=== PATIENT | male | born 1945 | race Caucasian/White ===

== ENCOUNTER 2017-02-16 21:50 | Emergency (ER) | payer MEDICARE ==
[~2017-02-16] VITALS: Ht 180.3 cm; Wt 146.0 kg
[~2017-02-16 21:50] MED LIST: ALLO100 PO; AMLO5TAB22 PO; CYCL1PAK PO; DOCU1CAP39 PO; FENO54TA PO; FURO1TAB93 PO; GABA800T PO; IRBE150T4 PO; LEVO.075 PO; LEVO50TA4 PO; METF850T PO; MORP30SU PO; RANI150T PO; STAR120T PO; TEMA15 PO; VITA10002 PO; VITATAB25 PO; WALKER ROLLING; WHEELCHAIR RENTAL RA
[2017-02-16 22:05] VITALS: BP 121/70; PULSE 89; RESP 19; TEMP 98; O2SAT 95
--- NOTE | 2017-02-16 23:04 | PD ---
HPI Chief Complaint: Injury Time Seen by Provider: 23:00 Travel History International Travel<30 days: No Contact w/Intl Traveler<30days: No Traveled to known affect area: No History of Present Illness HPI This 71-year-old male had a fall 2 days ago. He's been having pain in his right knee. It hurts him a lot when he bears weight he has chronic weakness in his left leg and back problems. He has had 3 back surgeries. PFSH Past Medical History Arthritis: No Asthma: No Autoimmune Disease: No Anxiety: No Depression: No Heart Rhythm Problems: No Cancer: No Cardiovascular Problems: No High Cholesterol: Yes Chemotherapy: No Chest Pain: No Congestive Heart Failure: No COPD: No Cerebrovascular Accident: No Diabetes: Yes (ON [place]) Endocrine: Yes Gastrointestinal Disorders: Yes (AICD REFLUX, OCCAS & CONSTIPATION ) GERD: Yes Genitourinary: No Hepatitis: No Hiatal Hernia: No Hypertension: Yes Immune Disorder: No Kidney Stones: No Musculoskeletal: Yes (LOSS OF STRENGTH OF LEFT LEG) Neurologic: Yes (TINGLING LEFT LEG) Psychiatric: No Reproductive: No Respiratory: Yes (SOB ON EXERTION) Migraines: No Radiation Therapy: No Renal Failure: No Seizures: No Sickle Cell Disease: No Sleep Apnea: No Thyroid Disease: Yes Ulcer: No Past Surgical History Abdominal Surgery: Yes (APPENDECTOMY) AICD: No Appendectomy: Yes Arteriovenous Shunt: No Body Medical Devices: PT DENIES ANY IMPLANTS Cardiac Surgery: No Ear Surgery: No Endocrine Surgery: No Eye Surgery: No Genitourinary Surgery: No Gynecologic Surgery: No Insulin Pump: No Joint Replacement: No Neurologic Surgery: Yes (CERVICAL SPINE STIMULATOR; PLATE THORACIC SPINE 2006) Oral Surgery: Yes (TONSILLECTOMY ) Pacemaker: No Thoracic Surgery: Yes (LUNG REPAIR LEFT) Tonsillectomy: Yes Other Surgery: Yes Social History Alcohol Use: No Tobacco Use: No Substance Use: No Allergies-Medications (Allergen,Severity, Reaction): Coded Allergies: Coconut (Verified Allergy, Severe, Hives, 02/16/17) Reported Meds & Prescriptions Reported Meds & Active Scripts Active Reported Pioglitazone (Pioglitazone HCl) 30 Mg Tab 30 Mg PO DAILY Magnesium 400 Mg Tab 400 Mg PO DAILY Lovastatin 20 Mg Tab 20 Mg PO DAILY Review of Systems General / Constitutional: No: Fever, Chills Eyes: No: Diploplia HENT: No: Headaches Cardiovascular: No: Chest Pain or Discomfort Respiratory: No: Cough, Shortness of Breath Gastrointestinal: No: Vomiting, Diarrhea Genitourinary: No: Urgency Musculoskeletal: Positive: Myalgias, Pain Skin: No Rash, No Itching Neurologic: No: Weakness Physical Exam Narrative GENERAL: An alert male SKIN: Focused skin assessment warm/dry. HEAD: Atraumatic. Normocephalic. EYES: Pupils equal and round. No scleral icterus. No injection or drainage. ENT: No nasal bleeding or discharge. Mucous membranes pink and moist.. MUSCULOSKELETAL: No obvious deformities. No clubbing. No cyanosis. No edema. There is some fairly diffuse swelling of the right knee. There is no warmth. There is no gross instability. NEUROLOGICAL: Awake and alert. No obvious cranial nerve deficits. Motor grossly within normal limits. Normal speech. PSYCHIATRIC: Appropriate mood and affect; insight and judgment normal. Data Data Last Documented VS Vital Signs Date Time Temp Pulse Resp B/P Pulse Ox O2 Delivery O2 Flow Rate FiO2 02/16/17 23:05 86 18 143/68 95 Room Air 02/16/17 22:05 98.0 Orders Knee, Complete (4vws) (02/16/17 23:00) Splint Or Brace Apply/Monitor (02/16/17 23:53) MDM Medical Decision Making Medical Screen Exam Complete: Yes Emergency Medical Condition: Yes Medical Record Reviewed: Yes Differential Diagnosis Differential includes fracture, contusion, internal derangement Narrative Course X-ray shows severe changes of osteoarthritis. There is no acute fracture seen. We tried to put the patient in a knee immobilizer but he is too large for the fever and we have. We did apply an John bandage to the knee Diagnosis Primary Impression: Contusion of knee Qualified Code: S80.01XA - Contusion of right knee, initial encounter Additional Instructions: Use John bandage when ambulatory. Follow-up with orthopedist if pain persists Disposition: DISCHARGE HOME Condition: Stable Andrew Mistry MD Feb 16, 2017 23:04
[2017-02-16 23:05] VITALS: BP 143/68; PULSE 86; RESP 18; O2SAT 95
[2017-02-16] MEDS ORDERED: MAGN1TAB14 PO (23:37)
[2017-02-16] MEDS ORDERED: MORP15TA73 (23:37)
[2017-02-16] MEDS ORDERED: PIOG30TA4 PO (23:37)
[2017-02-16] MEDS ORDERED: LOVA20TA PO (23:37)
--- NOTE | 2017-02-16 23:37 | RADHPO ---
EXAM DATE/TIME: 02/16/2017 23:07 [facility] COMPARISON: KNEE RIGHT COMPLETE (4VWS), June 05, 2015, 9:49. INDICATIONS : Right knee pain after fall. MEDICAL HISTORY : None. SURGICAL HISTORY : None. ENCOUNTER: Initial ACUITY: 2 days PAIN SCORE: 6/10 LOCATION: Right knee FINDINGS: Multiple views of the knee show joint space narrowing with periarticular sclerotic change and osteoph yte production. No fracture or dislocation. A tiny joint effusion. Soft tissues are unremarkable. CONCLUSION: 1. Advanced tricompartmental osteoarthritis with tiny joint effusion. William Johnson Jr., MD on February 16, 2017 at 23:34 Board Certified Radiologist. This report was verified electronically.
[2017-02-17 00:59] VITALS: BP 125/74
[2017-02-23] MEDS ORDERED: DULO1CAP2 PO (14:55)
[2017-02-23] MEDS ORDERED: GABA300C5 (14:55)
[2017-02-23] MEDS ORDERED: TIZA4TAB (14:55)
[2017-02-23] MEDS ORDERED: RANI150T PO (14:55)
[2017-02-23] MEDS ORDERED: MORP1TAB24 PO (14:55)
[2017-02-23] MEDS ORDERED: ALLO100T PO (14:55)
[2017-02-23] MEDS ORDERED: NATE120T PO (14:55)
[2017-02-23] MEDS ORDERED: LEVO100T5 PO (14:55)
[2017-02-23] MEDS ORDERED: ATOR10TA15 (14:55)
[2017-02-23] MEDS ORDERED: CYCL1TAB29 PO (14:55)
[2017-02-23] MEDS ORDERED: METF850T PO (14:55)
[2017-02-23] MEDS ORDERED: FURO40TA PO (14:55)
[2017-02-23] MEDS ORDERED: AMLO5TAB2 PO (14:55)
[2017-02-23] MEDS ORDERED: GABA600T PO (14:55)
[2017-02-23] MEDS ORDERED: [UNRECOGNIZED DRUG - CODE] (14:55)
[2017-04-07] MEDS ORDERED: METF850T PO (08:36)
[2017-04-07] MEDS ORDERED: HYDR-3583 PO (08:36)
== END 2017-02-17 01:01 | disposition home or self-care (01) ==
LOC: PHED 21:50
DX: S80.01XA Contusion of right knee, initial encounter (principal); E07.9 Disorder of thyroid, unspecified; I10 Essential (primary) hypertension; K21.9 Gastro-esophageal reflux disease without esophagitis; E11.9 Type 2 diabetes mellitus without complications; W19.XXXA Unspecified fall, initial encounter
CPT/HCPCS: 73564; 99283; L1830

== ENCOUNTER → 2017-04-07 | Outpatient (CLI) | payer MEDICARE ==
[~2017-04-07] MED LIST changes: -ALLO100 PO; +ALLO100T PO; +AMLO5TAB2 PO; -AMLO5TAB22 PO; +ATOR10TA15; -CYCL1PAK PO; +CYCL1TAB29 PO; -DOCU1CAP39 PO; +DULO1CAP2 PO; -FENO54TA PO; -FURO1TAB93 PO; +FURO40TA PO; +GABA300C5; +GABA600T PO; -GABA800T PO; +HYDR-3583 PO; -IRBE150T4 PO; -LEVO.075 PO; +LEVO100T5 PO; -LEVO50TA4 PO; +LOVA20TA PO; +MAGN1TAB14 PO; +MORP1TAB24 PO; -MORP30SU PO; +NATE120T PO; +PIOG30TA4 PO; -STAR120T PO; -TEMA15 PO; +TIZA4TAB; -VITA10002 PO; -VITATAB25 PO; -WALKER ROLLING; -WHEELCHAIR RENTAL RA; +[UNRECOGNIZED DRUG - CODE]
[2017-04-07 09:58] LABS: AUTOMATED NEUTROPHIL # 6.3 TH/MM3 (1.8-7.7); BASOPHIL # 0.1 TH/MM3 (0-0.2); BASOPHIL % 0.9 % (0.0-2.0); EOSINOPHIL # 0.6 TH/MM3 (0-0.4); EOSINOPHIL % 5.3 % (0.0-4.0); HEMATOCRIT 35.2 % (39.0-51.0); HEMO FLAGS DIFF FINAL; LYMPH % 29.3 % (9.0-44.0); LYMPHOCYTE # 3.3 TH/MM3 (1.0-4.8); MEAN CORPUSCULAR HEMOGLOBIN 26.8 PG (27.0-34.0); MEAN CORPUSCULAR HGB CONC 31.9 % (32.0-36.0); MONO % 8.2 % (0.0-8.0); NEUT % 56.3 % (16.0-70.0); PLATELET COUNT 299 TH/MM3 (150-450); RED CELL DISTRIBUTION WIDTH 15.8 % (11.6-17.2); WHITE BLOOD COUNT 11.1 TH/MM3 (4.0-11.0)
--- NOTE | 2017-04-07 14:47 | EKG ---
Date Performed: 04/07/2017 Time Performed: 08:15:57 PTAGE: 71 years EKG: Sinus rhythm WITH FIRST DEGREE AV BLOCK LOW QRS VOLTAGE IN PRECORDIAL LEADS INCOMPLETE RBBB MINIMAL VOLTAGE CRITE NEFTALY FOR LVH, CONSIDER NORMAL VARIANT INFERIOR MYOCARDIAL INFARCTION, PROBABLY OLD WITH POSTERIOR EXTE NSION ABNORMAL ECG PREVIOUS TRACING : 06/11/2016 10.19 Compared to prior tracing no significant change DOCTOR: Deonte Weaver Interpretating Date/Time 04/07/2017 14:45:14
== END ==
LOC: CPRE 07:56
PROVIDERS: ATTEND Orthopaedic Surgery
DX: Z01.810 Encounter for preprocedural cardiovascular examination (principal); M10.011 Idiopathic gout, right shoulder; M75.41 Impingement syndrome of right shoulder; Z01.812 Encounter for preprocedural laboratory examination
CPT/HCPCS: 36415; 85025; 93005

== ENCOUNTER → 2017-05-27 | Outpatient (CLI) | payer MEDICARE ==
[~2017-05-27] MED LIST changes: +CHOL5000 PO; -GABA300C5; -TIZA4TAB; +VITA500T83 PO; -[UNRECOGNIZED DRUG - CODE]
[2017-05-27 09:38] LABS: HEMATOCRIT 32.8 % (39.0-51.0); MEAN CELL VOLUME 84.3 FL (80.0-100.0); MEAN CORPUSCULAR HEMOGLOBIN 28.1 PG (27.0-34.0); MEAN CORPUSCULAR HGB CONC 33.3 % (32.0-36.0); PLATELET COUNT 308 TH/MM3 (150-450); RED BLOOD COUNT 3.89 MIL/MM3 (4.50-5.90); REVIEW FLAG FINAL
== END ==
LOC: CPRE 09:03
PROVIDERS: ATTEND Orthopaedic Surgery
DX: Z01.812 Encounter for preprocedural laboratory examination (principal); I10 Essential (primary) hypertension; M19.011 Primary osteoarthritis, right shoulder; M75.41 Impingement syndrome of right shoulder; E66.01 Morbid (severe) obesity due to excess calories
CPT/HCPCS: 36415; 85027

== ENCOUNTER → 2017-06-03 | Day surgery (SDC) | payer MEDICARE ==
[~2017-06-03] VITALS: Ht 180.3 cm; Wt 147.5 kg
[~2017-06-03] MED LIST changes: +*RESP: ALBUTEROL 2.5 MG/3 ML NEB (PRN) PERIprocedural Use ONLY NEB ONE; -ATOR10TA15; +BUPIVACAINE HCL PF 0.5% 30 ML VIAL NERV BLOCK ONE; +CHLORHEXIDINE GLUCONATE 2 % 1 PACK (2 CLOTHS) TOPICAL PRN; +DEXAMETHASONE SOD PHOS 4 MG/ML VIAL ONE; +DO NOT ADM ANY ANTICOAGULANT DRUGS PRN; +EPINEPHrine HCL (1:1000) 30 MG/30 ML VIAL ONE; +FAMOTIDINE 20 MG/2 ML VIAL ONE; +INSULIN HUMAN REGULAR 1,000 UNITS/10 ML VIAL SQ PRN; +KETOROLAC TROMETHAMINE 30 MG/ML (IVP) VIAL IVP ONE; +LACTATED RINGER'S 1000 ML IV PRN; +METOCLOPRAMIDE HCL 10 MG/2 ML VIAL ONE; +METOPROLOL TARTRATE 25 MG TAB PO PRN; +MIDAZOLAM HCL 2 MG/2 ML VIAL ONE; +MORPHINE SULFATE 4 MG/ML INJ IV PUSH PRN; +NEOSTIGMINE 3 MG/3 ML SYR IV ONE; +ONDANSETRON HCL 4 MG/2 ML VIAL IV PRN; +ONDANSETRON HCL 4 MG/2 ML VIAL ONE; +POVIDONE IODINE 5% (ANTISEPSIS KIT) 4 APPLICATIONS EACH NARE PRN; +PROPOFOL 200 MG/20 ML AMP IV ONE; +SODIUM CHLORID 0.9% 500 ML IV PRN; +SODIUM CHLORIDE 0.9% FLUSH 10 ML FLUSH IV FLUSH PRN; +SODIUM CHLORIDE 0.9% FLUSH 10 ML FLUSH IV FLUSH SCH; +SUGAMMADEX SODIUM 200 MG/2 ML VIAL IV PUSH ONE; +ceFAZolin 1,000 MG/NS 100 ML IV SCH; +ceFAZolin INJ 1,000 MG VIAL IV ONE; +ceFAZolin INJ 1,000 MG VIAL ONE; +ePHEDrine/NS 25 MG/5 ML SYR IV ONE; +fentaNYL CITRATE 250 MCG/5 ML AMP ONE; +oxyCODONE/ACETAMINOPHEN 5 MG/325 MG TAB PO PRN
[2017-06-03 06:39] VITALS: BP 144/83; PULSE 82; RESP 20; TEMP 98.4; O2SAT 97
[2017-06-03 12:20] VITALS: BP 101/57; PULSE 68; RESP 18; TEMP 97; O2SAT 92
--- NOTE | 2017-06-04 13:38 | MP ---
cc: Rhonda HAMMONDS. DATE OF SURGERY: 06/03/2017 PREOPERATIVE DIAGNOSIS: 1. Tear of supraspinatus 2. 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 POSTOPERATIVE DIAGNOSIS: 1. Tear of supraspinatus. 2. Glenoid labrum tear. 3. Biceps brachial long head tear. 4. 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 OPERATION: Arthroscopic debridement including glenoid labrum and subacromial space including acromioplasty with sectioning of the biceps and subsequent mini open repair of the rotator cuff and biceps tenodesis, right shoulder. SURGEON: Rober Hammonds MD ANESTHESIA Interscalene block regional and general endotracheal by Dony Evans MD. FINDINGS 1. The humeral head had no erosions of significance nor was there any irregularity or Hill Sachs lesion. 2. The glenoid surface was relatively smooth with no instability pattern. 3. The glenoid labrum had tearing from the midportion up to just posterior to the biceps origin. This would be considered a slap lesion. The biceps tendon itself had fraying and irregularity with approximately 30-40% of the tendon itself remaining. 4. Capsular structures viewed from inside the shoulder were normal. There was an obvious tear of the supraspinatus when viewed from inside. 5. In the subacromial space there was a very prominent anterior acromial osteophyte which impinged against the rotator cuff in the area of the tear. This was also the area of the biceps lesion. This was towards the anterior aspect of the greater tuberosity. The acromioclavicular joint had some spurs predominately on the acromion side of the acromioclavicular joint but there was no major disruption in this area. PROCEDURE The patient was brought to the operating room and a interscalene block regional anesthetic was administered by Dr. Dony Evans. The patient then had a induction of general endotracheal anesthetic. He received prophylactic antibiotics in the form of Ancef. He was transferred onto the operating table and positioned in the lateral position on [facility] lateral positioner. An axillary roll was placed under the left shoulder. The right arm was then prepped with alcohol, Hibiclens and Chloraprep and draped in the usual manner with the shoulder suspended from the shoulder vasquez. An appropriate time-out procedure was carried out. The bony landmarks were outlined in with marking pen. A needle was introduced from posterior lap posterior to delineate appropriate scope placement. A stab wound was made in the soft spot posteriorly. Scope cannula was then introduced into the should glenohumeral joint. The shoulder was distended with lactated Ringer's solution. The interior the shoulder was inspected. The scope was advanced to the anterior capsule above the middle glenohumeral ligament. The obturator was used to penetrate the capsule and go to the subcutaneous area where a stab wound was made. An instrument cannula was brought in from anteriorly. Debridement of the glenoid labrum and portions of the biceps was carried out with the shaver. After adequate debridement about accomplished a needle was introduced through the biceps tendon. A #1 PDS suture was passed through this as a tag. This was then grasped and removed. The biceps was transected at the level of the glenoid labrum with the ArthroCare cautery. The fluid was evacuated from the shoulder. The instruments were removed. The scope was placed into the subacromial space from posteriorly. The shoulder was distended with lactated Ringer's solution. A needle was introduced from lateral and anterior lateral to delineate proper instrument placement. A stab wound was made in the lateral portal. A switching stick was inserted. The scope was placed lateral to the instrument placed posteriorly. Using a cutting block method the subacromial debridement was carried out with a 4.0 mm shaver and the 4.0 mm abrader. The abrader was used to perform the acromioplasty. Further debridement was carried out along with cauterization and hemostasis with the arthrocace wand. After adequate debridement had been accomplished the area of the biceps tendon and the rotator cuff were carefully inspected. Needle was brought into the area of the graft A, between the supraspinatus and the subscapularis. This appeared to be appropriate site for the incision for the mini open repair the rotator cuff. The incision was then made approximately 5 cm's. The incision was deepen through the subcutaneous tissues to the deltoid which was split longitudinally in line with its fibers. The <<8:16>> retractor was inserted for visualization. The biceps tendon was identified and grasped with a Marcos clamp. #1 Tycron suture was then used with a crack out technique to encompass the end of the biceps. The damaged area was debrided and removed. Attention was then directed to the supraspinatus tear, where the tear was a decortication was initiated with a rongeur and then microfracture was carried out with the pick. The punch was then impacted into the greater tuberosity and removed. A Medina and Nephew 5.5 mm multi fix knotless suture anchor was chosen. The tape was then inserted onto the insertion device and horizontal mattress suture was then placed into the cuff. This was then up into the knotless suture anchor. As this was then tightened down into position, giving excellent position. After removal of the insertion device. The tape was then loaded onto the needle and then cracked out technique was used to affix this to the anchor on the biceps tendon. Following this, this was tied to the anchor and attention directed back to the biceps bicipital groove. The Tycron was then used to fix with soft tissue through the bicipital groove using a #1 Tycron and crack out technique. After this was done and tied the sutures were no were transected. The wound was then closed in layers using 0 Vicryl interrupted [id number] sutures for the deltoid, 2-0 Vicryl interrupted simple sutures with buried knots for the subcutaneous tissues and 4-0 Monocryl continuous subcuticular closure for the major incision and simple subcuticular incisions with buried knots for the stab wounds. Wounds were dressed with Steri-Strips followed by dry dressing, ABD pad and a compression dressing with Medipore tape. The patient was placed into a sling and transferred to the recovery room in satisfactory condition having tolerated the procedure well. Counts were correct. Specimens none. Estimated blood loss less than 10 milliliters. MD TATI Sparrow/tawnya /10:16 AM /12:49 PM
== END | disposition home or self-care (01) ==
LOC: HSDC 05:39
PROVIDERS: ATTEND Orthopaedic Surgery
DX: M75.101 Unspecified rotator cuff tear or rupture of right shoulder, not specified as traumatic (principal); S46.211A Strain of muscle, fascia and tendon of other parts of biceps, right arm, initial encounter; M75.41 Impingement syndrome of right shoulder; M19.011 Primary osteoarthritis, right shoulder; I10 Essential (primary) hypertension; E03.9 Hypothyroidism, unspecified; E11.9 Type 2 diabetes mellitus without complications; E66.01 Morbid (severe) obesity due to excess calories; Z79.899 Other long term (current) drug therapy; X58.XXXA Exposure to other specified factors, initial encounter
CPT/HCPCS: 01610; 01630; 23410; 29822; 29826; 94664; C1713; J0171; J0690; J1100; J1885; J2250; J2405; J2710; J2765; J3010; J7120; J7613

== ENCOUNTER 2017-10-24 12:21 | Observation (INO) | payer MEDICARE ==
[~2017-10-24] VITALS: Ht 180.3 cm; Wt 148.0 kg
[~2017-10-24 12:21] MED LIST changes: -*RESP: ALBUTEROL 2.5 MG/3 ML NEB (PRN) PERIprocedural Use ONLY NEB ONE; -BUPIVACAINE HCL PF 0.5% 30 ML VIAL NERV BLOCK ONE; -CHLORHEXIDINE GLUCONATE 2 % 1 PACK (2 CLOTHS) TOPICAL PRN; +CYCL10TA; +CYCL10TA PO; -CYCL1TAB29 PO; -DEXAMETHASONE SOD PHOS 4 MG/ML VIAL ONE; -DO NOT ADM ANY ANTICOAGULANT DRUGS PRN; -EPINEPHrine HCL (1:1000) 30 MG/30 ML VIAL ONE; -FAMOTIDINE 20 MG/2 ML VIAL ONE; -INSULIN HUMAN REGULAR 1,000 UNITS/10 ML VIAL SQ PRN; +IRBE150T15; -KETOROLAC TROMETHAMINE 30 MG/ML (IVP) VIAL IVP ONE; -LACTATED RINGER'S 1000 ML IV PRN; +LYRI50CA; -MAGN1TAB14 PO; +MAGN400T3 PO; -METOCLOPRAMIDE HCL 10 MG/2 ML VIAL ONE; -METOPROLOL TARTRATE 25 MG TAB PO PRN; -MIDAZOLAM HCL 2 MG/2 ML VIAL ONE; -MORPHINE SULFATE 4 MG/ML INJ IV PUSH PRN; -NEOSTIGMINE 3 MG/3 ML SYR IV ONE; -ONDANSETRON HCL 4 MG/2 ML VIAL IV PRN; -ONDANSETRON HCL 4 MG/2 ML VIAL ONE; -POVIDONE IODINE 5% (ANTISEPSIS KIT) 4 APPLICATIONS EACH NARE PRN; -PROPOFOL 200 MG/20 ML AMP IV ONE; -SODIUM CHLORID 0.9% 500 ML IV PRN; -SODIUM CHLORIDE 0.9% FLUSH 10 ML FLUSH IV FLUSH PRN; -SODIUM CHLORIDE 0.9% FLUSH 10 ML FLUSH IV FLUSH SCH; -SUGAMMADEX SODIUM 200 MG/2 ML VIAL IV PUSH ONE; -ceFAZolin 1,000 MG/NS 100 ML IV SCH; -ceFAZolin INJ 1,000 MG VIAL IV ONE; -ceFAZolin INJ 1,000 MG VIAL ONE; -ePHEDrine/NS 25 MG/5 ML SYR IV ONE; -fentaNYL CITRATE 250 MCG/5 ML AMP ONE; -oxyCODONE/ACETAMINOPHEN 5 MG/325 MG TAB PO PRN
[2017-10-24 12:41] VITALS: BP 123/68; PULSE 84; RESP 19; TEMP 98.2; O2SAT 96
[2017-10-24 12:43] VITALS: BP 123/68; PULSE 84; RESP 19; TEMP 98.2; O2SAT 96
--- NOTE | 2017-10-24 12:55 | PD ---
HPI . Sciatica Chief Complaint: Pain: Acute or Chronic Time Seen by Provider: 12:29 Travel History International Travel<30 days: No Contact w/Intl Traveler<30days: No Traveled to known affect area: No History of Present Illness HPI 72-year-old male patient presents emergency department via EMS for evaluation of left lateral lower back pain that radiates on the posterior aspect of his left leg. Patient denies any falls, traumas, injuries. Patient states he has a history of sciatica on the left side. Patient states this exacerbation of pain has been progressive in nature. Patient states the he first noticed the pain on Wednesday but was able to ambulate with his walker until Wednesday night. This morning he woke up and felt like he couldn't walk due to the pain. Patient has no other physiological complaints at this time. Patient is any saddle numbness, incontinence of urine or stool, fever or chills, abdominal pain , nausea, vomiting, diarrhea, dysuria or hematuria. PFSH Past Medical History Hx Anticoagulant Therapy: Yes Arthritis: No Asthma: No Autoimmune Disease: No Anxiety: No Depression: No Heart Rhythm Problems: No Cancer: No Cardiovascular Problems: Yes High Cholesterol: Yes Chemotherapy: No Chest Pain: No Congestive Heart Failure: No COPD: No Cerebrovascular Accident: No Diabetes: Yes Patient Takes Glucophage: Yes Diminished Hearing: No Endocrine: Yes Gastrointestinal Disorders: Yes (ACID REFLUX, OCCAS & CONSTIPATION ) GERD: Yes Genitourinary: No Hepatitis: No Hiatal Hernia: No Hypertension: Yes Immune Disorder: No Kidney Stones: No Medical other: Yes (RECENT FALL ON R KNEE WITH PAIN) Musculoskeletal: Yes (LOSS OF STRENGTH OF LEFT LEG, OA, TORN ROTATOR CUFF RIGHT ) Neurologic: Yes (NEUROPATHY LEFT FOOT) Psychiatric: Yes (DEPRESSION) Reproductive: No Respiratory: Yes (SOB ON EXERTION) Migraines: No Radiation Therapy: No Renal Failure: No Seizures: No Sickle Cell Disease: No Sleep Apnea: No Thyroid Disease: Yes Ulcer: No Tetanus Vaccination: Unknown Past Surgical History Abdominal Surgery: Yes (APPENDECTOMY) AICD: No Appendectomy: Yes Arteriovenous Shunt: No Body Medical Devices: PT DENIES ANY IMPLANTS Cardiac Surgery: No Ear Surgery: No Endocrine Surgery: No Eye Surgery: No Genitourinary Surgery: No Gynecologic Surgery: No Insulin Pump: No Joint Replacement: No Neurologic Surgery: Yes (CERVICAL SPINE STIMULATOR AND REMOVAL 1 YR AGO; PLATE THORACIC SPINE 2006?) Oral Surgery: Yes (TONSILLECTOMY ) Pacemaker: No Thoracic Surgery: No Tonsillectomy: Yes Other Surgery: Yes Social History Alcohol Use: No Tobacco Use: No Substance Use: No Allergies-Medications (Allergen,Severity, Reaction): Coded Allergies: coconut (Unverified Allergy, Severe, Hives, 10/24/17) Reported Meds & Prescriptions Reported Meds & Active Scripts Active Reported Fenofibrate 54 Mg Tab 54 Mg PO DAILY Stool Softener (Docusate Sodium) 100 Mg Cap Morphine ER (Morphine Sulfate) 15 Mg Tab 15 Mg PO BID Vitamin B-12 ER (Cyanocobalamin) 1,000 Mcg Tab 1,000 Mcg PO DAILY Vitamin D3 (Cholecalciferol) 1,000 Unit Cap 1,000 Units PO DAILY Aspirin EC (Aspirin) 81 Mg Tabdr 81 Mg PO DAILY Atorvastatin (Atorvastatin Calcium) 10 Mg Tab 10 Mg PO HS Lyrica (Pregabalin) 50 Mg Cap Flexeril (Cyclobenzaprine HCl) 10 Mg Tab Irbesartan 150 Mg Tab Vitamin C ER (Ascorbic Acid) 500 Mg Sandra 500 Mg PO BID Vitamin D3 (Cholecalciferol) 5,000 Unit Cap 5,000 Units PO DAILY Gabapentin 600 Mg Tab 1,200 Mg PO HS Hydrocodone-Acetaminophen 10-325 mg Tab 1 Tab PO Q4H PRN Metformin (Metformin HCl) 850 Mg Tab 1,700 Mg PO HS With a meal Metformin (Metformin HCl) 850 Mg Tab 850 Mg PO AC BREAKFAST Nateglinide 120 Mg Tab 120 Mg PO DAILY Levothyroxine (Levothyroxine Sodium) 100 Mcg Tab 100 Mcg PO DAILY Amlodipine (Amlodipine Besylate) 5 Mg Tab 5 Mg PO DAILY Furosemide 40 Mg Tab 40 Mg PO DAILY Ranitidine (Ranitidine HCl) 150 Mg Tab 150 Mg PO DAILY Duloxetine DR (Duloxetine HCl) 30 Mg Capdr 30 Mg PO DAILY Morphine ER (Morphine Sulfate) 15 Mg Tab 30 Mg PO HS Allopurinol 100 Mg Tab 100 Mg PO DAILY Gabapentin 600 Mg Tab 600 Mg PO DAILY Flexeril (Cyclobenzaprine HCl) 10 Mg Tab 10 Mg PO TID Pioglitazone (Pioglitazone HCl) 30 Mg Tab 30 Mg PO DAILY Magnesium 400 Mg Tab 400 Mg PO DAILY Lovastatin 20 Mg Tab 20 Mg PO DAILY Review of Systems Except as stated in HPI: all other systems reviewed are Neg Physical Exam Narrative GENERAL: Well-nourished, well-developed 72-year-old male patient in no acute distress. Nontoxic appearing. SKIN: Focused skin assessment warm/dry. HEAD: Normocephalic. Atraumatic. EYES: No scleral icterus. No injection or drainage. NECK: Supple, trachea midline. No JVD or lymphadenopathy. CARDIOVASCULAR: Regular rate and rhythm without murmurs, gallops, or rubs. Pulses +2 bilaterally. Pitting pedal edema +2 bilaterally. RESPIRATORY: Breath sounds equal bilaterally. No accessory muscle use. GASTROINTESTINAL: Abdomen large, rounded, nontender. MUSCULOSKELETAL: No obvious deformity, ecchymosis, erythema, or cyanosis. BACK: Number sacral tenderness to palpation. No ecchymosis, erythema, or cyanosis noted. No CVA tenderness. Data Data Last Documented VS Vital Signs Date Time Temp Pulse Resp B/P (MAP) Pulse Ox O2 Delivery O2 Flow Rate FiO2 10/24/17 12:43 98.2 84 19 123/68 (86) 96 Room Air Orders Orders Oxycodone-Acetamin 5-325 Mg (Percocet (10/24/17 13:15) Complete Blood Count With Diff (10/24/17 13:01) Basic Metabolic Panel (Bmp) (10/24/17 13:01) Iv Access Insert/Monitor (10/24/17 13:01) Ct Abd/Pel W/O Iv Contrast (10/24/17 13:59) Admit Order (Ed Use Only) (10/24/17 ) Vital Signs (Adult) Q4H (10/24/17 15:57) Diet Heart Healthy (10/24/17 Dinner) Activity Bed Rest (10/24/17 15:57) Labs Laboratory Tests Test 10/24/17 13:15 White Blood Count 9.2 TH/MM3 Red Blood Count 4.05 MIL/MM3 Hemoglobin 11.5 GM/DL Hematocrit 34.2 % Mean Corpuscular Volume 84.5 FL Mean Corpuscular Hemoglobin 28.4 PG Mean Corpuscular Hemoglobin Concent 33.6 % Red Cell Distribution Width 15.9 % Platelet Count 292 TH/MM3 Mean Platelet Volume 7.7 FL Neutrophils (%) (Auto) 63.2 % Lymphocytes (%) (Auto) 20.9 % Monocytes (%) (Auto) 8.9 % Eosinophils (%) (Auto) 5.7 % Basophils (%) (Auto) 1.3 % Neutrophils # (Auto) 5.8 TH/MM3 Lymphocytes # (Auto) 1.9 TH/MM3 Monocytes # (Auto) 0.8 TH/MM3 Eosinophils # (Auto) 0.5 TH/MM3 Basophils # (Auto) 0.1 TH/MM3 CBC Comment DIFF FINAL Differential Comment Blood Urea Nitrogen 23 MG/DL Creatinine 1.81 MG/DL Random Glucose 131 MG/DL Calcium Level 9.3 MG/DL Sodium Level 136 MEQ/L Potassium Level 4.1 MEQ/L Chloride Level 100 MEQ/L Carbon Dioxide Level 29.7 MEQ/L Anion Gap 6 MEQ/L Estimat Glomerular Filtration Rate 37 ML/MIN MDM Medical Decision Making Medical Screen Exam Complete: Yes Emergency Medical Condition: Yes Differential Diagnosis Differential diagnoses include but not limited to sciatica, muscle strain, contusion, sprain Narrative Course 72-year-old male patient presents to emergency room for evaluation of left lateral lower back pain that radiates down the posterior aspect of his left leg. IV obtained and blood work sent. CBC, BMP ordered and pending. Abdominal CT ordered to evaluate for possible aneurysm that would Shady attributed cause for increasing lower back pain. 2 tablets of Percocet given for pain management. Patient on chronic pain medication. Patient's abdomen is round and large but nontender. Patient states he had a bowel movement 2 days ago. Denies any nausea vomiting or abdominal pain. Blood work is unremarkable. Kidney functioning is subpar. CT ordered without contrast due to kidney functioning. Dr Weaver assumed care of this patient. Please see his documentation for further details and disposition. Last Impressions Abdomen/Pelvis CT 10/24/17 1359 Signed Impressions: Service Date/Time: Tuesday, October 24, 2017 14:45 - CONCLUSION: 1. No acute abdominal or pelvic pathology. 2. Bilateral benign-appearing renal cysts. 3. 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 4. Status post cholecystectomy. 5. Nonspecific 7 mm pulmonary nodule the right middle lobe. 6. No evidence of calcified renal stones or hydronephrosis. MD Darell Mccoy Jessica Dawn ARNP Oct 24, 2017 12:55
[2017-10-24] MEDS ORDERED: CHOL10008 PO (13:03)
[2017-10-24] MEDS ORDERED: VITA100022 PO (13:03)
[2017-10-24] MEDS ORDERED: ASPI81TA23 PO (13:03)
[2017-10-24] MEDS ORDERED: DOCU1CAP66 (13:03)
[2017-10-24] MEDS ORDERED: MORP1TAB24 PO (13:03)
[2017-10-24] MEDS ORDERED: FENO54TA PO (13:03)
[2017-10-24] MEDS ORDERED: ATOR10TA15 PO (13:03)
[2017-10-24] MEDS ORDERED: oxyCODONE/ACETAMINOPHEN 5 MG/325 MG TAB PO ONE (13:15)
[2017-10-24 13:24] LABS: AUTOMATED NEUTROPHIL # 5.8 TH/MM3 (1.8-7.7); BASOPHIL # 0.1 TH/MM3 (0-0.2); BASOPHIL % 1.3 % (0.0-2.0); EOSINOPHIL # 0.5 TH/MM3 (0-0.4); EOSINOPHIL % 5.7 % (0.0-4.0); HEMATOCRIT 34.2 % (39.0-51.0); HEMO FLAGS DIFF FINAL; LYMPH % 20.9 % (9.0-44.0); LYMPHOCYTE # 1.9 TH/MM3 (1.0-4.8); MEAN CELL VOLUME 84.5 FL (80.0-100.0); MEAN CORPUSCULAR HEMOGLOBIN 28.4 PG (27.0-34.0); MEAN CORPUSCULAR HGB CONC 33.6 % (32.0-36.0); MONO % 8.9 % (0.0-8.0); NEUT % 63.2 % (16.0-70.0); PLATELET COUNT 292 TH/MM3 (150-450); RED BLOOD COUNT 4.05 MIL/MM3 (4.50-5.90); RED CELL DISTRIBUTION WIDTH 15.9 % (11.6-17.2); WHITE BLOOD COUNT 9.2 TH/MM3 (4.0-11.0)
--- NOTE | 2017-10-24 13:30 | PD ---
Data Data Last Documented VS Vital Signs Date Time Temp Pulse Resp B/P (MAP) Pulse Ox O2 Delivery O2 Flow Rate FiO2 10/24/17 12:43 98.2 84 19 123/68 (86) 96 Room Air Orders Orders Oxycodone-Acetamin 5-325 Mg (Percocet (10/24/17 13:15) Complete Blood Count With Diff (10/24/17 13:01) Basic Metabolic Panel (Bmp) (10/24/17 13:01) Iv Access Insert/Monitor (10/24/17 13:01) Ct Abd/Pel W/O Iv Contrast (10/24/17 13:59) Admit Order (Ed Use Only) (10/24/17 ) Vital Signs (Adult) Q4H (10/24/17 15:57) Diet Heart Healthy (10/24/17 Dinner) Activity Bed Rest (10/24/17 15:57) Labs Laboratory Tests Test 10/24/17 13:15 White Blood Count 9.2 TH/MM3 Red Blood Count 4.05 MIL/MM3 Hemoglobin 11.5 GM/DL Hematocrit 34.2 % Mean Corpuscular Volume 84.5 FL Mean Corpuscular Hemoglobin 28.4 PG Mean Corpuscular Hemoglobin Concent 33.6 % Red Cell Distribution Width 15.9 % Platelet Count 292 TH/MM3 Mean Platelet Volume 7.7 FL Neutrophils (%) (Auto) 63.2 % Lymphocytes (%) (Auto) 20.9 % Monocytes (%) (Auto) 8.9 % Eosinophils (%) (Auto) 5.7 % Basophils (%) (Auto) 1.3 % Neutrophils # (Auto) 5.8 TH/MM3 Lymphocytes # (Auto) 1.9 TH/MM3 Monocytes # (Auto) 0.8 TH/MM3 Eosinophils # (Auto) 0.5 TH/MM3 Basophils # (Auto) 0.1 TH/MM3 CBC Comment DIFF FINAL Differential Comment Blood Urea Nitrogen 23 MG/DL Creatinine 1.81 MG/DL Random Glucose 131 MG/DL Calcium Level 9.3 MG/DL Sodium Level 136 MEQ/L Potassium Level 4.1 MEQ/L Chloride Level 100 MEQ/L Carbon Dioxide Level 29.7 MEQ/L Anion Gap 6 MEQ/L Estimat Glomerular Filtration Rate 37 ML/MIN [facility] Medical Record Reviewed: Yes Supervised Visit with LYDIA: Yes Narrative Course I, Dr. Weaver, have reviewed the advance practice practitioner's documentation and am in agreement, met with the patient face to face, made the diagnosis, and the medical decision making was done by me. *My assessment and Findings: CBC & BMP Diagram 10/24/17 13:15 Calcium Level 9.3 Last Impressions Abdomen/Pelvis CT 10/24/17 [id number] Signed Impressions: Service Date/Time: Tuesday, October 24, 2017 14:45 - CONCLUSION: 1. No acute abdominal or pelvic pathology. 2. Bilateral benign-appearing renal cysts. 3. 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 4. Status post cholecystectomy. 5. Nonspecific 7 mm pulmonary nodule the right middle lobe. 6. No evidence of calcified renal stones or hydronephrosis. Ric Dolan MD The patient states he can't walk. His 3 months ago. He lives alone in his own private residence. d/w [facility]MRP. Admission for pain control and PT eval and treat. R lung nodule discussed with patient. Diagnosis Primary Impression: Inability to walk Additional Impression: Lung nodule Admitting Information Admitting Physician Requests: Observation Valentino Weaver MD Oct 24, 2017 13:30
[2017-10-24 13:44] LABS: BICARBONATE 29.7 MEQ/L (21.0-32.0); POTASSIUM 4.1 MEQ/L (3.5-5.1)
--- NOTE | 2017-10-24 15:17 | RADRPT ---
EXAM DATE/TIME: 10/24/2017 14:45 [place] COMPARISON: No previous studies available for comparison. INDICATIONS : Back pain that radiated down both legs, unable to ambulate.Aneurysm. ORAL CONTRAST: No oral contrast ingested. RADIATION DOSE: 32.67 CTDIvol (mGy) ; Patient body habitus MEDICAL HISTORY : Cardiovascular disease. Hypertension. GERD, diabetes SURGICAL HISTORY : back and neuro surgery ENCOUNTER: Initial ACUITY: 1 day PAIN SCALE: 10/10 LOCATION: Bilateral back and lower extremities. TECHNIQUE: Volumetric scanning of the abdomen and pelvis was performed. Using automated exposure control and ad justment of the mA and/or kV according to patient size, radiation dose was kept as low as reasonably achievable to obtain optimal diagnostic quality images. DICOM format image data is available electro nically for review and comparison. The lack of IV contrast limits the diagnosis for certain organ pa thology. FINDINGS: LOWER LUNGS: 7 mm pulmonary nodule in the right middle lobe. There is some chronic pleural-parenchymal changes in both lung bases. LIVER: Homogeneous density without lesion. There is no dilation of the biliary tree. No gallbladder, surgi tyrone removed. SPLEEN: Normal size without lesion. PANCREAS: Within normal limits. KIDNEYS: Normal in size and shape. There is no mass, stone, or hydronephrosis. There is a 2.87 m cyst along t he midpole the right kidney. There is a 1.1 cm fatty density in the upper pole of the left kidney. Th ere is also a 1.6 and meter cyst along the lower pole of the left kidney. The ureters are nondilated. ADRENAL GLANDS: Within normal limits. VASCULAR: There is no aortic aneurysm. BOWEL/MESENTERY: The stomach, small bowel, and colon demonstrate no acute abnormality. There is no free intraperitone al air or fluid. No inflammatory changes. Stool throughout the colon. ABDOMINAL WALL: Within normal limits. RETROPERITONEUM: There is no lymphadenopathy. BLADDER: No wall thickening or mass. No evidence of stones. There are multiple calcified phleboliths deep in t he pelvis. REPRODUCTIVE: Within normal limits. INGUINAL: There is no lymphadenopathy or hernia. MUSCULOSKELETAL: There is evidence of previous lower lumbar spinal surgery as well as surgery to the mid thoracic spin e. There are primary degenerative change is present. CONCLUSION: 1. No acute abdominal or pelvic pathology. 2. Bilateral benign-appearing renal cysts. 3. 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 4. Status post cholecystectomy. 5. Nonspecific 7 mm pulmonary nodule the right middle lobe. 6. No evidence of calcified renal stones or hydronephrosis. Ric Dolan MD on October 24, 2017 at 15:10 Board Certified Radiologist. This report was verified electronically.
[2017-10-24] MEDS ORDERED: methylPREDNISolone SOD SUCC 40 MG/1 ML VIAL IV PUSH ONE (17:15)
[2017-10-24] MEDS ORDERED: NALOXONE HCL 0.4 MG/ML AMP IV PUSH PRN (17:15)
[2017-10-24] MEDS ORDERED: BISACODYL 10 MG SUPP RECTAL PRN (17:15)
[2017-10-24] MEDS ORDERED: MAGNESIUM HYDROXIDE SUSP 30 ML CUP PO PRN (17:15)
[2017-10-24] MEDS ORDERED: SENNOSIDES 8.6 MG TAB PO PRN (17:15)
[2017-10-24] MEDS ORDERED: ONDANSETRON HCL 4 MG/2 ML VIAL IVP PRN (17:15)
[2017-10-24] MEDS ORDERED: LACTULOSE SYRUP 20 GM/30 ML CUP PO PRN (17:15)
[2017-10-24] MEDS ORDERED: SODIUM CHLORIDE 0.9% FLUSH 10 ML FLUSH IV FLUSH PRN (17:15)
[2017-10-24] MEDS ORDERED: DEXTROSE 50% IN WATER 50 ML VIAL(D50) IV PUSH PRN (17:30)
[2017-10-24] MEDS ORDERED: GLUCAGON 1 MG/ML VIAL OTHER PRN (17:30)
[2017-10-24] MEDS ORDERED: ACETAMINOPHEN/HYDROcodone 325 MG/10 MG TAB PO PRN (17:30)
--- NOTE | 2017-10-24 17:34 | HHI.HP ---
[facility] Service Family Medicine Primary Care Physician Alexus Daniel MD Admission Diagnosis Inability to Ambulate Diagnoses: International Travel<30 Days: No Contact w/Intl Traveler<30days: No Known Affected Area: No History of Present Illness 72 yr old M w/ PMH of HTN, HLD, T2DM, and chronic left lower extremity pain with lumbar radiculopathy with known left L5-S1 foraminal herniated nucleus pulposis s/p lumbar spinal fusion at L5-S1, on chronic narcotics followed by [facility] neurology and Dr. Pritchard. He reports on Oct 22, he started having constant, sharp b/l leg pain (left (7/10 pain) worse than right (3/10 pain)) radiating from his back to his toes. He also was experiencing muscle spasms in his left leg. He took a Story pill prescribed for breakthrough pain w /o much relief. The next day, Oct.23, his pain continued to worsen. He decided to take his morning meds, which includes morphine and tried an ice pack/ heating pad w/o relief. His legs began to weakne. He started having trouble standing and using his walker around the house. He states that "my legs were giving out." Pain was exacerbated with movement and only alleviated with rest. His pain continued throughout the night and into the morning. He then called 911 and was brought to the ED. Prior to these recent events, he was able to ambulate without difficulty. He denies hx of falls. He denies urinary/bowel problems, saddle anesthesia, fever, SOB, CP, abdominal pain, and N/V. 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 T2DM HTN HLD Past Surgical History 06/15/16 for elective L5-S1 PLIF (decompressive laminectomy, facetectomy, foraminotomy for decompression and fusion) 3 L knee surgeries Tonsillectomy Appendectomy Allergies: Coded Allergies: coconut (Unverified Allergy, Severe, Hives, 10/24/17) Family History Mom at 94 of Alz's, DM Dad -Heart disease, at 86 from car accident Social History Lives alone in [place] Past smoker, smoked from 13yr old- 59 yr old, 1.5 ppd Occasional drinker Denies illicit drug use Physical Exam Vital Signs Vital Signs Date Time Temp Pulse Resp B/P (MAP) Pulse Ox O2 Delivery O2 Flow Rate FiO2 10/24/17 12:43 98.2 84 19 123/68 (86) 96 Room Air 10/24/17 12:43 84 19 10/24/17 12:41 98.2 84 19 123/68 (86) 96 Physical Exam GENERAL: obese male, lying in bed, in discomfort from muscle spasm in his L leg SKIN: No rashes, ecchymoses or lesions. Cool and dry. HEAD: Atraumatic. Normocephalic. EYES: PERRLA, EOMI ENT: Throat clear NECK: Trachea midline. No JVD or lymphadenopathy. Supple, nontender, no meningeal signs. CARDIOVASCULAR: RRR, no m/r/g RESPIRATORY: CTAB GASTROINTESTINAL: Abdomen soft, non-tender, nondistended. + BS MUSCULOSKELETAL: Moderate tenderness to palpation in left lower back and left calf, 1+ pitting edema in lower extremities, able to move all toes, strength 5/ 5 b/l legs, sensation intact only to left knee, no sensation in left toes, sensation intact to R ankle, negative straight leg raise test in R leg, positive straight leg raise test in L leg (pain elicited with 30 degrees of elevation. NEUROLOGICAL: Awake and alert. Oriented x 3. Laboratory Laboratory Tests Test 10/24/17 13:15 White Blood Count 9.2 Red Blood Count 4.05 Hemoglobin 11.5 Hematocrit 34.2 Mean Corpuscular Volume 84.5 Mean Corpuscular Hemoglobin 28.4 Mean Corpuscular Hemoglobin Concent 33.6 Red Cell Distribution Width 15.9 Platelet Count 292 Mean Platelet Volume 7.7 Neutrophils (%) (Auto) 63.2 Lymphocytes (%) (Auto) 20.9 Monocytes (%) (Auto) 8.9 Eosinophils (%) (Auto) 5.7 Basophils (%) (Auto) 1.3 Neutrophils # (Auto) 5.8 Lymphocytes # (Auto) 1.9 Monocytes # (Auto) 0.8 Eosinophils # (Auto) 0.5 Basophils # (Auto) 0.1 CBC Comment DIFF FINAL Differential Comment Blood Urea Nitrogen 23 Creatinine 1.81 Random Glucose 131 Calcium Level 9.3 Sodium Level 136 Potassium Level 4.1 Chloride Level 100 Carbon Dioxide Level 29.7 Anion Gap 6 Estimat Glomerular Filtration Rate 37 Result Diagram: 10/24/17131410/24/171314 Caprini VTE Risk Assessment Caprini VTE Risk Assessment: Mod/High Risk (score >= 2) Caprini Risk Assessment Model Point Value = 1 Point Value = 2 Point Value = 3 Point Value = 5 Age 41-60 Minor surgery BMI > 25 kg/m2 Swollen legs Varicose veins or History of unexplained or recurrent spontaneous Oral contraceptives or hormone replacement Sepsis (< 1 month) Serious lung disease, including pneumonia (< 1 month) Abnormal pulmonary function Acute myocardial infarction Congestive heart failure (< 1 month) History of inflammatory bowel disease Medical patient at bed rest Age 61-74 Arthroscopic surgery Major open surgery (> 45 min) Laparoscopic surgery (> 45 min) Malignancy Confined to bed (> 72 hours) Immobilizing plaster cast Central venous access Age >= 75 History of VTE Family history of VTE Factor V Leiden Prothrombin [id number] Lupus anticoagulant Anticardiolipin antibodies Elevated serum homocysteine Heparin-induced thrombocytopenia Other congenital or acquired thrombophilia Stroke (< 1 month) Elective arthroplasty Hip, pelvis, or leg fracture Acute spinal cord injury (< 1 month) Prophylaxis Regimen Total Risk Factor Score Risk Level Prophylaxis Regimen 0-1 Low Early ambulation 2 Moderate Order ONE of the following: *Sequential Compression Device (SCD) *Heparin 5000 units SQ BID 3-4 Higher Order ONE of the following medications: *Heparin 5000 units SQ TID *Enoxaparin/Lovenox 40 mg SQ daily (WT < 150 kg, CrCl > 30 mL/min) *Enoxaparin/Lovenox 30 mg SQ daily (WT < 150 kg, CrCl > 10-29 mL/min) *Enoxaparin/Lovenox 30 mg SQ BID (WT < 150 kg, CrCl > 30 mL/min) AND/OR *Sequential Compression Device (SCD) 5 or more Highest Order ONE of the following medications: *Heparin 5000 units SQ TID (Preferred with Epidurals) *Enoxaparin/Lovenox 40 mg SQ daily (WT < 150 kg, CrCl > 30 mL/min) *Enoxaparin/Lovenox 30 mg SQ daily (WT < 150 kg, CrCl > 10-29 mL/min) *Enoxaparin/Lovenox 30 mg SQ BID (WT < 150 kg, CrCl > 30 mL/min) AND *Sequential Compression Device (SCD) Assessment and Plan Assessment and Plan 72 yr old M w/ PMH of HTN, HLD, T2DM, and chronic left lower extremity pain with lumbar radiculopathy with known left L5-S1 foraminal herniated nucleus pulposis on chronic narcotics. Admitted for further evaluation and treatment due to inability to ambulate secondary to severe sciatic pain. Code Status Full Code Discussed Condition With Dr. Ly Problem List: (1) Lumbar radiculopathy ICD Codes: M54.16 - Lumbar radiculopathy Status: Acute Plan: Hx of chronic left lower extremity pain. s/p laminectomy with spinal fusion. On chronic narcotics followed by [facility] neurology and Dr. Pritchard. MRI spine 09/24/17 showed mild to moderate spinal canal stenosis at L3-4 and L4- 5. Mild spinal canal stenosis at L2-3. S/p lumbar spinal fusion at L5-S1. b/l facet arthritis at multiple levels. Methylprednisolone 60mg IV once, will need Medrol pack upon discharge Continue home pain meds: Gabapentin 600mg PO daily Gabapentin 1200mg daily HS Lyrica 50mg PO daily Flexeril 10mg PO q8hr Morphine 15mg PO BID Narco 10 mg 1 tab PO q4h for breakthrough pain (2) Inability to walk ICD Codes: R26.2 - Difficulty in walking, not elsewhere classified Status: Acute Plan: PT to eval and treat Please see plan above (3) ERVIN (acute kidney injury) ICD Codes: N17.9 - Acute kidney failure, unspecified Plan: BUN 23, Cr. 1.81 upon admission due to possible dehydration avoid nephrotoxic agents IVFs 100mls/hr (4) Lung nodule ICD Codes: R91.1 - Solitary pulmonary nodule Status: Acute Plan: Nonspecific 7mm nodule in R middle lobe on CT (5) DM II (diabetes mellitus, type II), controlled ICD Codes: E11.9 - Type 2 diabetes mellitus without complications Status: Chronic Plan: Held home Metformin 800mg TID Patient reports checking his blood sugars everyday, twice/day Low dose SS while inpatient (6) Hypertension ICD Codes: I10 - Essential (primary) hypertension Status: Chronic Plan: -continue home med: Amlodipine 5mg PO daily Furosemide 40mg PO daily Held home Irbesartan (not available), substitute Losartan 50mg PO daily (7) Hypothyroid ICD Codes: E03.9 - Hypothyroidism, unspecified Status: Chronic Plan: -Held home levothyroxine (8) Hyperlipemia ICD Codes: E78.5 - Hyperlipidemia, unspecified Status: Chronic Plan: -Atorvastatin 10mg daily HS (9) GERD (gastroesophageal reflux disease) ICD Codes: K21.9 - Gastro-esophageal reflux disease without esophagitis Status: Chronic Plan: Protonix 40 mg PO daily (10) Nutrition, metabolism, and development symptoms ICD Codes: R63.8 - Other symptoms and signs concerning food and fluid intake Plan: Diet: Diabetic diet Fluids: 100mls/hr NS Electrolytes: monitor and replace as needed vitals q4h, monitor I & Os Case management consulted Louisa Briones MD R1 Oct 24, 2017 17:34
[2017-10-24] MEDS: ALLOPURINOL 100 MG TAB PO SCH (17:45)
[2017-10-24] MEDS: HEPARIN SODIUM - SQ 10,000 UNITS/ML VIAL SQ SCH (17:46)
[2017-10-24] MEDS: CYCLOBENZAPRINE HCL 10 MG TAB PO SCH (17:46)
[2017-10-24 17:55] VITALS: BP 148/69
[2017-10-24] MEDS: MORPHINE SULFATE 15 MG CONTROLLED RELEASE TAB PO SCH ×2 (18:24→21:31)
[2017-10-24] MEDS: SODIUM CHLOR 0.9% 1000 ML INJ 1,000 ML IV SCH (18:46)
[2017-10-24 19:46] VITALS: BP 140/72; PULSE 86; TEMP 98.1; O2SAT 96
[2017-10-24] MEDS ORDERED: MORPHINE SULFATE 30 MG CONTROLLED RELEASE TAB PO SCH (21:00)
[2017-10-24] MEDS: SODIUM CHLORIDE 0.9% FLUSH 10 ML FLUSH IV FLUSH SCH (21:00)
[2017-10-24] MEDS ORDERED: ATORVASTATIN 10 MG TAB PO SCH (21:00)
[2017-10-24] MEDS: INSULIN ASPART SUPPLEMENTAL SCALE SQ SCH (21:31)
[2017-10-24] MEDS: DOCUSATE SODIUM 50 MG/SENNA 8.6 MG TAB PO SCH (21:31)
[2017-10-24] MEDS: GABAPENTIN 300 MG CAP PO SCH (21:32)
[2017-10-24 22:59] VITALS: BP 128/63; PULSE 94; RESP 18; TEMP 98.9; O2SAT 95
[2017-10-25 03:06] VITALS: BP 141/81; PULSE 98; RESP 17; TEMP 97.5; O2SAT 96
[2017-10-25] MEDS: SODIUM CHLOR 0.9% 1000 ML INJ 1,000 ML IV SCH ×2 (04:46→14:46)
[2017-10-25 05:21] LABS: AUTOMATED NEUTROPHIL # 9.1 TH/MM3 (1.8-7.7); BASOPHIL % 0.4 % (0.0-2.0); EOSINOPHIL % 0.1 % (0.0-4.0); HEMATOCRIT 33.8 % (39.0-51.0); HEMO FLAGS DIFF FINAL; LYMPH % 13.6 % (9.0-44.0); LYMPHOCYTE # 1.5 TH/MM3 (1.0-4.8); MEAN CELL VOLUME 83.7 FL (80.0-100.0); MEAN CORPUSCULAR HEMOGLOBIN 28.9 PG (27.0-34.0); MEAN CORPUSCULAR HGB CONC 34.5 % (32.0-36.0); MONO % 1.9 % (0.0-8.0); PLATELET COUNT 292 TH/MM3 (150-450); RED BLOOD COUNT 4.04 MIL/MM3 (4.50-5.90); RED CELL DISTRIBUTION WIDTH 15.7 % (11.6-17.2); WHITE BLOOD COUNT 10.8 TH/MM3 (4.0-11.0)
[2017-10-25 05:40] LABS: BICARBONATE 26.7 MEQ/L (21.0-32.0); POTASSIUM 4.6 MEQ/L (3.5-5.1)
[2017-10-25] MEDS: CYCLOBENZAPRINE HCL 10 MG TAB PO SCH ×3 (06:15→22:35)
[2017-10-25] MEDS: HEPARIN SODIUM - SQ 10,000 UNITS/ML VIAL SQ SCH ×2 (06:16→18:28)
[2017-10-25 07:39] VITALS: BP 142/69; PULSE 95; RESP 18; TEMP 97.9; O2SAT 95
[2017-10-25] MEDS: INSULIN ASPART SUPPLEMENTAL SCALE SQ SCH (08:00)
[2017-10-25] MEDS: SODIUM CHLORIDE 0.9% FLUSH 10 ML FLUSH IV FLUSH SCH ×2 (09:00→20:38)
[2017-10-25] MEDS: ATORVASTATIN 10 MG TAB PO SCH ×2 (09:00→20:38)
[2017-10-25] MEDS: PREGABALIN 25 MG CAP PO SCH (10:55)
[2017-10-25] MEDS: ASPIRIN EC 81 MG TABEC PO SCH (10:56)
[2017-10-25] MEDS: MORPHINE SULFATE 15 MG CONTROLLED RELEASE TAB PO SCH ×2 (10:56→20:41)
[2017-10-25] MEDS: DULoxetine HCl DR 30 MG CAP PO SCH (10:56)
[2017-10-25] MEDS: PRAVASTATIN SOD 20 MG TAB PO SCH (10:56)
[2017-10-25] MEDS: ALLOPURINOL 100 MG TAB PO SCH (10:57)
[2017-10-25] MEDS: DOCUSATE SODIUM 50 MG/SENNA 8.6 MG TAB PO SCH ×2 (10:57→20:39)
[2017-10-25] MEDS: PANTOPRAZOLE SOD 40 MG DELAYED RELEASE TAB PO SCH (10:57)
[2017-10-25] MEDS: FUROSEMIDE 40 MG TAB PO SCH (10:58)
[2017-10-25] MEDS: LOSARTAN 50 MG TAB PO SCH (10:58)
[2017-10-25] MEDS: amLODIPine BESYLATE 5 MG TAB PO SCH (10:58)
[2017-10-25] MEDS ORDERED: methylPREDNISolone SOD SUCC 125 MG/2 ML VIAL IV PUSH ONE (11:00)
[2017-10-25] MEDS: GABAPENTIN 300 MG CAP PO SCH ×2 (11:03→20:39)
[2017-10-25] MEDS: ACETAMINOPHEN/HYDROcodone 325 MG/10 MG TAB PO SCH ×2 (11:03→18:29)
[2017-10-25 11:08] VITALS: BP 171/76; PULSE 75; RESP 20; TEMP 97.9; O2SAT 95
--- NOTE | 2017-10-25 11:53 | HHI.FPPN ---
Subjective Remarks Patient seen, examined and discussed with the medicine team. This is a 72-year-old male with known hypertension, dyslipidemia, type 2 diabetes and hypothyroidism who had spinal fusion due to history of trauma and herniated nucleus pulposus of L5-S1 [place] [address] [place]. He has been getting around at home with a walker, and chronically takes MS Contin 15 twice a day and uses hydrocodone 10 for breakthrough pain. He has not been taking very good care of himself admittedly, his approximately 3 months ago and he reported that she required 24 hour care which he provided. On October 22, patient began to experience some left lower extremity pain and spasm. This seemed to worsen by Wednesday and then on Wednesday, the day of admission on October 24, patient felt unable to get out of bed and walk. He contacted [facility] and was brought to [facility] for evaluation. See history and physical examination for this observation admission for additional historical details. This morning, he reports his pain is unchanged and he continues to have significant spasm in the posterior left leg. The pain goes all the way to his toes and he reports decreased sensation to touch in the left lower extremity. He denies chest pain, shortness of breath, nausea or vomiting. Objective Vitals Vital Signs Date Time Temp Pulse Resp B/P (MAP) Pulse Ox O2 Delivery O2 Flow Rate FiO2 10/25/17 11:08 97.9 75 20 171/76 (107) 95 10/25/17 07:39 97.9 95 18 142/69 (93) 95 10/25/17 03:06 97.5 98 17 141/81 (101) 96 10/24/17 22:59 98.9 94 18 128/63 (84) 95 10/24/17 19:46 98.1 86 140/72 (94) 96 10/24/17 17:55 74 18 148/69 (95) 96 10/24/17 12:43 98.2 84 19 123/68 (86) 96 Room Air 10/24/17 12:43 84 19 10/24/17 12:41 98.2 84 19 123/68 (86) 96 I/O 10/24/17 10/24/17 10/24/17 10/25/17 10/25/17 10/25/17 07:00 15:00 23:00 07:00 15:00 23:00 Intake Total 240 ml Balance 240 ml Intake Oral 240 ml # Voids 1 Result Diagram: 10/25/17 0457 10/25/17 0457 Other Results Laboratory Tests Test 10/24/17 13:15 10/25/17 04:57 White Blood Count 9.2 TH/MM3 10.8 TH/MM3 Red Blood Count 4.05 MIL/MM3 4.04 MIL/MM3 Hemoglobin 11.5 GM/DL 11.7 GM/DL Hematocrit 34.2 % 33.8 % Mean Corpuscular Volume 84.5 FL 83.7 FL Mean Corpuscular Hemoglobin 28.4 PG 28.9 PG Mean Corpuscular Hemoglobin Concent 33.6 % 34.5 % Red Cell Distribution Width 15.9 % 15.7 % Platelet Count 292 TH/MM3 292 TH/MM3 Mean Platelet Volume 7.7 FL 7.7 FL Neutrophils (%) (Auto) 63.2 % 84.0 % Lymphocytes (%) (Auto) 20.9 % 13.6 % Monocytes (%) (Auto) 8.9 % 1.9 % Eosinophils (%) (Auto) 5.7 % 0.1 % Basophils (%) (Auto) 1.3 % 0.4 % Neutrophils # (Auto) 5.8 TH/MM3 9.1 TH/MM3 Lymphocytes # (Auto) 1.9 TH/MM3 1.5 TH/MM3 Monocytes # (Auto) 0.8 TH/MM3 0.2 TH/MM3 Eosinophils # (Auto) 0.5 TH/MM3 0.0 TH/MM3 Basophils # (Auto) 0.1 TH/MM3 0.0 TH/MM3 CBC Comment DIFF FINAL DIFF FINAL Differential Comment Blood Urea Nitrogen 23 MG/DL 23 MG/DL Creatinine 1.81 MG/DL 1.70 MG/DL Random Glucose 131 MG/DL 208 MG/DL Calcium Level 9.3 MG/DL 9.3 MG/DL Sodium Level 136 MEQ/L 134 MEQ/L Potassium Level 4.1 MEQ/L 4.6 MEQ/L Chloride Level 100 MEQ/L 99 MEQ/L Carbon Dioxide Level 29.7 MEQ/L 26.7 MEQ/L Anion Gap 6 MEQ/L 8 MEQ/L Estimat Glomerular Filtration Rate 37 ML/MIN 40 ML/MIN Imaging Last Impressions Abdomen/Pelvis CT 10/24/17 9060 Signed Impressions: Service Date/Time: Tuesday, October 24, 2017 14:45 - CONCLUSION: 1. No acute abdominal or pelvic pathology. 2. Bilateral benign-appearing renal cysts. 3. 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 4. Status post cholecystectomy. 5. Nonspecific 7 mm pulmonary nodule the right middle lobe. 6. No evidence of calcified renal stones or hydronephrosis. Ric Dolan MD Objective Remarks GENERAL: Alert, interactive, complaining of pain in his left lower extremity. SKIN: No rashes, ecchymoses or lesions. Cool and dry. His lower extremities are hairless, with hypertrophic toenails, and hyperpigmentation of both medial lower legs. HEAD: NC/AT EYES: PERRL. EOMI. No conjunctival injection or drainage. ENT: MMM, OP without erythema, tonsillar swelling, or exudate. NECK: Supple, no lymphadenopathy. No palpable thyromegaly CARDIOVASCULAR: NRRR. Normal S1/S2. No MRG RESPIRATORY: CTAB. No crackles or wheezes. GASTROINTESTINAL: Abdomen soft, non-distended, obese, nontender. No hepato- splenomegaly or palpable masses. MUSCULOSKELETAL: Extremities without clubbing, cyanosis, or edema. Loss of dermal appendages both lower extremities as noted above NEUROLOGICAL: Awake and alert. Cranial nerves II through XII grossly intact. Moves all extremities without difficulty. Normal speech. Sensation appears to be decreased in the left lower extremity to light touch. Sensation on the right is normal. A/P Assessment and Plan 72 yr old M w/ PMH of HTN, HLD, T2DM, and chronic left lower extremity pain with lumbar radiculopathy with known left L5-S1 foraminal herniated nucleus pulposis on chronic narcotics. Admitted to observation for further evaluation and treatment due to inability to ambulate secondary to severe sciatic pain. Discharge Planning Case management as patient lives alone Attending Attestation Patient seen and examined. Case reviewed and discussed with the resident team. Agree with plan of care as discussed with me and documented in the resident note. Problem List: (1) Lumbar radiculopathy ICD Codes: M54.16 - Lumbar radiculopathy Status: Acute Plan: Hx of chronic left lower extremity pain. s/p laminectomy with spinal fusion. On chronic narcotics followed by [facility] neurology and Dr. Pritchard. MRI spine 09/24/17 showed mild to moderate spinal canal stenosis at L3-4 and L4- 5. Mild spinal canal stenosis at L2-3. S/p lumbar spinal fusion at L5-S1. b/l facet arthritis at multiple levels. Methylprednisolone 60mg IV once, will need Medrol pack upon discharge Continue home pain meds: Gabapentin 600mg PO daily Gabapentin 1200mg daily HS Lyrica 50mg PO daily Flexeril 10mg PO q8hr Morphine 15mg PO BID Narco 10 mg 1 tab PO q4h for breakthrough pain (2) Inability to walk ICD Codes: R26.2 - Difficulty in walking, not elsewhere classified Status: Acute Plan: PT to eval and treat Please see plan above (3) ERVIN (acute kidney injury) ICD Codes: N17.9 - Acute kidney failure, unspecified Plan: BUN 23, Cr. 1.81 upon admission due to possible dehydration avoid nephrotoxic agents IVFs 100mls/hr (4) Lung nodule ICD Codes: R91.1 - Solitary pulmonary nodule Status: Acute Plan: Nonspecific 7mm nodule in R middle lobe on CT (5) DM II (diabetes mellitus, type II), controlled ICD Codes: E11.9 - Type 2 diabetes mellitus without complications Status: Chronic Plan: Resume Metformin 800mg TID Patient reports checking his blood sugars everyday, twice/day Discontinue Low dose SS (6) Hypertension ICD Codes: I10 - Essential (primary) hypertension Status: Chronic Plan: -continue home med: Amlodipine 5mg PO daily Furosemide 40mg PO daily Held home Irbesartan (not available), substitute Losartan 50mg PO daily (7) Hypothyroid ICD Codes: E03.9 - Hypothyroidism, unspecified Status: Chronic Plan: -Resume home levothyroxine at 100 g daily on an empty stomach (8) Hyperlipemia ICD Codes: E78.5 - Hyperlipidemia, unspecified Status: Chronic Plan: -Atorvastatin 10mg daily HS (9) GERD (gastroesophageal reflux disease) ICD Codes: K21.9 - Gastro-esophageal reflux disease without esophagitis Status: Chronic Plan: Protonix 40 mg PO daily (10) Nutrition, metabolism, and development symptoms ICD Codes: R63.8 - Other symptoms and signs concerning food and fluid intake Plan: Diet: Diabetic diet Fluids: 100mls/hr NS Electrolytes: monitor and replace as needed vitals q4h, monitor I & Os Case management consulted Sobia Bhat MD Oct 25, 2017 11:53
[2017-10-25] MEDS: metFORMIN HCL 850 MG TAB PO SCH ×2 (14:31→18:26)
[2017-10-25] MEDS: LEVOTHYROXINE SODIUM 100 MCG TAB PO SCH (14:32)
[2017-10-25 15:20] VITALS: BP 100/56; PULSE 102; RESP 18; TEMP 97.9; O2SAT 95
[2017-10-25 19:29] VITALS: BP 100/51; PULSE 98; RESP 18; TEMP 98.3; O2SAT 95
[2017-10-26] VITALS (7 sets, daily range): BP systolic 105–158; BP diastolic 50–77; PULSE 80–93; RESP 18–20; TEMP 95.3–98.5; O2SAT 94–98
[2017-10-26] MEDS: SODIUM CHLOR 0.9% 1000 ML INJ 1,000 ML IV SCH (00:24)
[2017-10-26] MEDS: ACETAMINOPHEN/HYDROcodone 325 MG/10 MG TAB PO SCH ×4 (00:25→17:56)
[2017-10-26] MEDS: HEPARIN SODIUM - SQ 10,000 UNITS/ML VIAL SQ SCH ×2 (05:27→17:15)
[2017-10-26] MEDS: LEVOTHYROXINE SODIUM 100 MCG TAB PO SCH (06:24)
[2017-10-26] MEDS: CYCLOBENZAPRINE HCL 10 MG TAB PO SCH ×3 (06:24→22:53)
[2017-10-26] MEDS: SODIUM CHLORIDE 0.9% FLUSH 10 ML FLUSH IV FLUSH SCH ×2 (09:00→21:07)
[2017-10-26] MEDS: FUROSEMIDE 40 MG TAB PO SCH (10:07)
[2017-10-26] MEDS: metFORMIN HCL 850 MG TAB PO SCH ×3 (10:08→17:56)
[2017-10-26] MEDS: PRAVASTATIN SOD 20 MG TAB PO SCH (10:08)
[2017-10-26] MEDS: PREGABALIN 25 MG CAP PO SCH (10:08)
[2017-10-26] MEDS: amLODIPine BESYLATE 5 MG TAB PO SCH (10:09)
[2017-10-26] MEDS: ASPIRIN EC 81 MG TABEC PO SCH (10:09)
[2017-10-26] MEDS: PANTOPRAZOLE SOD 40 MG DELAYED RELEASE TAB PO SCH (10:09)
[2017-10-26] MEDS: DOCUSATE SODIUM 50 MG/SENNA 8.6 MG TAB PO SCH ×2 (10:10→21:07)
[2017-10-26] MEDS: MORPHINE SULFATE 15 MG CONTROLLED RELEASE TAB PO SCH ×2 (10:10→21:08)
[2017-10-26] MEDS: ALLOPURINOL 100 MG TAB PO SCH (10:10)
[2017-10-26] MEDS: DULoxetine HCl DR 30 MG CAP PO SCH (10:11)
[2017-10-26] MEDS: LOSARTAN 50 MG TAB PO SCH (10:14)
[2017-10-26] MEDS: GABAPENTIN 300 MG CAP PO SCH ×2 (10:14→21:07)
--- NOTE | 2017-10-26 11:32 | HHI.FPPN ---
Subjective Remarks No acute events overnight. Afebrile, vitals stable. Patient seen and examined this morning. He reports continued low back pain as well as pain along his left buttock and left lateral leg extending down to his toes. He states his pain is not excruciating or any worse since admission. Denies severe back pain at night. No fevers, incontinence to bowel or bladder. He states he has not been able to stand unassisted due to his pain. (Rocky Ly MD R2) Objective Vitals Vital Signs Date Time Temp Pulse Resp B/P (MAP) Pulse Ox O2 Delivery O2 Flow Rate FiO2 10/26/17 07:21 97.5 81 18 134/62 (86) 95 10/26/17 03:43 98.3 90 18 143/62 (89) 96 10/26/17 01:18 98.3 93 18 105/57 (73) 97 10/25/17 19:29 98.3 98 18 100/51 (67) 95 10/25/17 19:29 20 10/25/17 15:20 97.9 102 18 100/56 (71) 95 10/25/17 11:55 20 10/25/17 11:55 20 I/O 10/25/17 10/25/17 10/25/17 10/26/17 10/26/17 10/26/17 07:00 15:00 23:00 07:00 15:00 23:00 Intake Total 240 ml 550 ml Balance 240 ml 550 ml Intake Oral 240 ml 550 ml # Voids 1 (Rocky Ly MD R2) Result Diagram: 10/25/1745610/25/17456 Objective Remarks GENERAL: Alert, interactive, complaining of pain in his left lower extremity. SKIN: No rashes, ecchymoses or lesions. Cool and dry. His lower extremities are hairless, with hypertrophic toenails, and hyperpigmentation of both medial lower legs. HEAD: NC/AT EYES: EOMI. No conjunctival injection or drainage. ENT: MMM, OP without erythema, tonsillar swelling, or exudate. NECK: Supple, no lymphadenopathy. No palpable thyromegaly CARDIOVASCULAR: NRRR. Normal S1/S2. No MRG RESPIRATORY: CTAB. No crackles or wheezes. GASTROINTESTINAL: Abdomen soft, non-distended, obese, nontender. No hepato- splenomegaly or palpable masses. MUSCULOSKELETAL: Extremities without clubbing, cyanosis, or edema. Loss of dermal appendages both lower extremities as noted above NEUROLOGICAL: Awake and alert. Cranial nerves grossly intact. Moves all extremities without difficulty. Normal speech. Sensation decreased in the left lower extremity to light touch. Sensation on the right is normal. (Rocky Ly MD R2) A/P Assessment and Plan 72 year old man w/ PMH of HTN, HLD, T2DM, and chronic left lower extremity pain with lumbar radiculopathy with known left L5-S1 foraminal herniated nucleus pulposus on chronic narcotics. Admitted to observation for further evaluation and treatment due to inability to ambulate secondary to severe sciatic pain. Discharge Planning Patient needing PT at rehab Case management assisting with placement given patient not meeting inpatient criteria (Rocky Ly MD R2) Attending Attestation Patient seen and examined. Case reviewed and discussed with the resident team. Agree with plan of care as discussed with me and documented in the resident note. (Sobia Bhat MD) Problem List: (1) Lumbar radiculopathy ICD Codes: M54.16 - Lumbar radiculopathy Status: Acute Plan: Hx of chronic left lower extremity pain. s/p laminectomy with spinal fusion. On chronic narcotics followed by [facility] neurology and Dr. Pritchard. MRI spine 09/24/17 showed mild to moderate spinal canal stenosis at L3-4 and L4- 5. Mild spinal canal stenosis at L2-3. S/p lumbar spinal fusion at L5-S1. b/l facet arthritis at multiple levels. Continue Solumedrol Continue home analgesics: Gabapentin 600mg PO daily Gabapentin 1200mg daily HS Lyrica 50mg PO daily Flexeril 10mg PO q8hr Morphine 15mg PO BID Narco 10 mg 1 tab PO q4h scheduled (2) Inability to walk ICD Codes: R26.2 - Difficulty in walking, not elsewhere classified Status: Acute Plan: PT recommending PT at rehab Plan as above (3) ERVIN (acute kidney injury) ICD Codes: N17.9 - Acute kidney failure, unspecified Plan: Cr. 1.81 on admission, baseline ~1.20 Avoid nephrotoxic agents as able NS at 100 cc/hr (4) Lung nodule ICD Codes: R91.1 - Solitary pulmonary nodule Status: Acute Plan: Nonspecific 7mm nodule in R middle lobe on CT Consider outpatient follow up (5) DM II (diabetes mellitus, type II), controlled ICD Codes: E11.9 - Type 2 diabetes mellitus without complications Status: Chronic Plan: Continue home medications - Metformin 850 mg po tid - Nateglinide 120 mg po daily - Pioglitazone 30 mg po daily (6) Hypertension ICD Codes: I10 - Essential (primary) hypertension Status: Chronic Plan: Continue home antihypertensives: - Amlodipine 5 mg PO daily - Furosemide 40 mg PO daily - Held home Irbesartan (not available), substitute Losartan 50mg PO daily (7) Hypothyroid ICD Codes: E03.9 - Hypothyroidism, unspecified Status: Chronic Plan: - Resume home levothyroxine at 100 g daily on an empty stomach (8) Hyperlipemia ICD Codes: E78.5 - Hyperlipidemia, unspecified Status: Chronic Plan: -Atorvastatin 10mg daily HS (9) GERD (gastroesophageal reflux disease) ICD Codes: K21.9 - Gastro-esophageal reflux disease without esophagitis Status: Chronic Plan: Protonix 40 mg PO daily (10) Nutrition, metabolism, and development symptoms ICD Codes: R63.8 - Other symptoms and signs concerning food and fluid intake Plan: Diet: Diabetic diet Fluids: PO Electrolytes: monitor and replace as needed DVT ppx: Heparin 5000 units sq q12h (Rocky Ly MD R2) Rocky Ly MD R2 Oct 26, 2017 11:32 Sobia Bhat MD Oct 26, 2017 16:03
[2017-10-26] MEDS ORDERED: NATEGLINIDE 120 MG PO SCH (12:00)
[2017-10-26] MEDS: predniSONE 50 MG TAB PO SCH (15:37)
[2017-10-26] MEDS: PIOGLITAZONE HCL 30 MG TAB PO SCH (15:38)
[2017-10-26] MEDS: ATORVASTATIN 10 MG TAB PO SCH (21:07)
[2017-10-27] MEDS: ACETAMINOPHEN/HYDROcodone 325 MG/10 MG TAB PO SCH ×5 (00:01→22:05)
[2017-10-27 03:13] VITALS: BP 128/59; PULSE 80; RESP 18; TEMP 97.9; O2SAT 96
[2017-10-27] MEDS: HEPARIN SODIUM - SQ 10,000 UNITS/ML VIAL SQ SCH ×2 (05:22→18:10)
[2017-10-27] MEDS: LEVOTHYROXINE SODIUM 100 MCG TAB PO SCH (05:22)
[2017-10-27] MEDS: CYCLOBENZAPRINE HCL 10 MG TAB PO SCH ×3 (06:00→22:04)
[2017-10-27 07:27] VITALS: BP 140/67; PULSE 90; RESP 18; TEMP 97.9; O2SAT 100
[2017-10-27] MEDS: PIOGLITAZONE HCL 30 MG TAB PO SCH (08:08)
[2017-10-27] MEDS: predniSONE 50 MG TAB PO SCH (08:09)
[2017-10-27] MEDS: GABAPENTIN 300 MG CAP PO SCH ×2 (08:09→22:05)
[2017-10-27] MEDS: metFORMIN HCL 850 MG TAB PO SCH ×3 (08:09→18:09)
[2017-10-27] MEDS: FUROSEMIDE 40 MG TAB PO SCH (08:09)
[2017-10-27] MEDS: PREGABALIN 25 MG CAP PO SCH (08:09)
[2017-10-27] MEDS: DULoxetine HCl DR 30 MG CAP PO SCH (08:09)
[2017-10-27] MEDS: ASPIRIN EC 81 MG TABEC PO SCH (08:09)
[2017-10-27] MEDS: LOSARTAN 50 MG TAB PO SCH (08:09)
[2017-10-27] MEDS: PANTOPRAZOLE SOD 40 MG DELAYED RELEASE TAB PO SCH (08:10)
[2017-10-27] MEDS: ALLOPURINOL 100 MG TAB PO SCH (08:10)
[2017-10-27] MEDS: amLODIPine BESYLATE 5 MG TAB PO SCH (08:10)
[2017-10-27] MEDS: DOCUSATE SODIUM 50 MG/SENNA 8.6 MG TAB PO SCH ×2 (08:10→22:04)
[2017-10-27] MEDS: MORPHINE SULFATE 15 MG CONTROLLED RELEASE TAB PO SCH ×2 (08:10→22:03)
[2017-10-27] MEDS: SODIUM CHLORIDE 0.9% FLUSH 10 ML FLUSH IV FLUSH SCH ×2 (08:15→22:06)
--- NOTE | 2017-10-27 10:16 | HHI.FPPN ---
Subjective Remarks No acute events overnight. Pt lying in bed this AM. Pt reports doing better this AM. States that his L sciatic pain has much improved and is having minimal muscle spasms. Eating well. Still needs assistance to get in wheelchair to go to bathroom. He is able to stand for only short period of time and requires putting a lot of weight on R leg. Otherwise, denies CP, SOB, abdominal pain, and N/V. (Louisa Briones MD R1) Objective Vitals Vital Signs Date Time Temp Pulse Resp B/P (MAP) Pulse Ox O2 Delivery O2 Flow Rate FiO2 10/27/17 07:27 97.9 90 18 140/67 (91) 100 10/27/17 03:13 97.9 80 18 128/59 (82) 96 10/26/17 23:50 98.5 87 18 143/71 (95) 96 10/26/17 20:00 95.3 83 18 158/77 (104) 97 10/26/17 15:39 97.5 80 18 105/50 (68) 94 10/26/17 11:28 97.9 89 20 120/58 (78) 98 10/26/17 11:08 20 10/26/17 11:08 20 10/26/17 11:08 20 I/O 10/26/17 10/26/17 10/26/17 10/27/17 10/27/17 10/27/17 07:00 15:00 23:00 07:00 15:00 23:00 Intake Total 550 ml 600 ml Balance 550 ml 600 ml Intake Oral 550 ml 600 ml # Voids 1 1 (Louisa Briones MD R1) Result Diagram: 10/25/17 0457 10/25/17 045 Objective Remarks GENERAL: Alert, lying in bed, in NAD SKIN: No rashes, ecchymoses or lesions. Cool and dry. His lower extremities are hairless, with hypertrophic toenails, and hyperpigmentation of both medial lower legs. HEAD: NC/AT EYES: EOMI. No conjunctival injection or drainage. ENT: MMM, OP without erythema, tonsillar swelling, or exudate. NECK: Supple, no lymphadenopathy. No palpable thyromegaly CARDIOVASCULAR: NRRR. Normal S1/S2. No MRG RESPIRATORY: CTAB. No crackles or wheezes. GASTROINTESTINAL: Abdomen soft, non-distended, obese, nontender. No hepato- splenomegaly or palpable masses. MUSCULOSKELETAL: Extremities without clubbing, cyanosis, or edema. Loss of dermal appendages both lower extremities as noted above NEUROLOGICAL: Awake and alert. Cranial nerves grossly intact. Moves all extremities without difficulty. Normal speech. Sensation decreased in the left lower extremity to light touch. Sensation on the right is normal. (Louisa Briones MD R1) A/P Assessment and Plan 72 year old man w/ PMH of HTN, HLD, T2DM, and chronic left lower extremity pain with lumbar radiculopathy with known left L5-S1 foraminal herniated nucleus pulposus on chronic narcotics. Admitted to observation for further evaluation and treatment due to inability to ambulate secondary to severe sciatic pain. Discharge Planning Patient needing PT at rehab Case management assisting with placement given patient not meeting inpatient criteria (Louisa Briones MD R1) Attending Attestation Patient seen and examined. Case reviewed and discussed with the resident team. Agree with plan of care as discussed with me and documented in the resident note. (Sobia Bhat MD) Problem List: (1) Lumbar radiculopathy ICD Codes: M54.16 - Lumbar radiculopathy Status: Acute Plan: Hx of chronic left lower extremity pain. s/p laminectomy with spinal fusion. On chronic narcotics followed by [facility] neurology and Dr. Pritchard. MRI spine 09/24/17 showed mild to moderate spinal canal stenosis at L3-4 and L4- 5. Mild spinal canal stenosis at L2-3. S/p lumbar spinal fusion at L5-S1. b/l facet arthritis at multiple levels. Continue Solumedrol Continue home analgesics: Gabapentin 600mg PO daily Gabapentin 1200mg daily HS Lyrica 50mg PO daily Flexeril 10mg PO q8hr Morphine 15mg PO BID Narco 10 mg 1 tab PO q4h scheduled (2) Inability to walk ICD Codes: R26.2 - Difficulty in walking, not elsewhere classified Status: Acute Plan: PT recommending PT at rehab PT ordered daily to assist Plan as above (3) ERVIN (acute kidney injury) ICD Codes: N17.9 - Acute kidney failure, unspecified Plan: Cr. 1.81 on admission, baseline ~1.20 Improving Continue to monitor Avoid nephrotoxic agents as able (4) Lung nodule ICD Codes: R91.1 - Solitary pulmonary nodule Status: Acute Plan: Nonspecific 7mm nodule in R middle lobe on CT Consider outpatient follow up (5) DM II (diabetes mellitus, type II), controlled ICD Codes: E11.9 - Type 2 diabetes mellitus without complications Status: Chronic Plan: Continue home medications - Metformin 850 mg po tid - Nateglinide 120 mg po daily - Pioglitazone 30 mg po daily (6) Hypertension ICD Codes: I10 - Essential (primary) hypertension Status: Chronic Plan: Continue home antihypertensives: - Amlodipine 5 mg PO daily - Furosemide 40 mg PO daily - Held home Irbesartan (not available), substitute Losartan 50mg PO daily (7) Hypothyroid ICD Codes: E03.9 - Hypothyroidism, unspecified Status: Chronic Plan: - Resume home levothyroxine at 100 g daily on an empty stomach (8) Hyperlipemia ICD Codes: E78.5 - Hyperlipidemia, unspecified Status: Chronic Plan: -Atorvastatin 10mg daily HS (9) GERD (gastroesophageal reflux disease) ICD Codes: K21.9 - Gastro-esophageal reflux disease without esophagitis Status: Chronic Plan: Protonix 40 mg PO daily (10) Nutrition, metabolism, and development symptoms ICD Codes: R63.8 - Other symptoms and signs concerning food and fluid intake Plan: Diet: Diabetic diet Fluids: PO Electrolytes: monitor and replace as needed DVT ppx: Heparin 5000 units sq q12h (Louisa Briones MD R1) Louisa Briones MD R1 Oct 27, 2017 10:16 Sobia Bhat MD Oct 27, 2017 13:36
[2017-10-27 11:17] VITALS: BP 139/91; PULSE 88; RESP 19; TEMP 97.6; O2SAT 97
[2017-10-27 15:32] VITALS: BP 124/59; PULSE 85; RESP 18; TEMP 97.7; O2SAT 97
[2017-10-27 20:51] VITALS: BP 139/71; PULSE 85; RESP 19; TEMP 97.7; O2SAT 98
[2017-10-27] MEDS: ATORVASTATIN 10 MG TAB PO SCH (22:04)
[2017-10-28] VITALS (7 sets, daily range): BP systolic 108–175; BP diastolic 58–88; PULSE 77–88; RESP 16–20; TEMP 96.1–98.5; O2SAT 92–97
[2017-10-28] MEDS: CYCLOBENZAPRINE HCL 10 MG TAB PO SCH ×3 (05:03→22:00)
[2017-10-28] MEDS: ACETAMINOPHEN/HYDROcodone 325 MG/10 MG TAB PO SCH ×4 (05:04→23:59)
[2017-10-28] MEDS: LEVOTHYROXINE SODIUM 100 MCG TAB PO SCH (05:04)
[2017-10-28] MEDS: HEPARIN SODIUM - SQ 10,000 UNITS/ML VIAL SQ SCH ×2 (05:04→16:48)
[2017-10-28] MEDS: amLODIPine BESYLATE 5 MG TAB PO SCH (08:41)
[2017-10-28] MEDS: GABAPENTIN 300 MG CAP PO SCH ×2 (08:41→21:13)
[2017-10-28] MEDS: PREGABALIN 25 MG CAP PO SCH (08:41)
[2017-10-28] MEDS: DOCUSATE SODIUM 50 MG/SENNA 8.6 MG TAB PO SCH ×2 (08:41→21:13)
[2017-10-28] MEDS: metFORMIN HCL 850 MG TAB PO SCH ×3 (08:41→16:48)
[2017-10-28] MEDS: ALLOPURINOL 100 MG TAB PO SCH (08:41)
[2017-10-28] MEDS: FUROSEMIDE 40 MG TAB PO SCH (08:41)
[2017-10-28] MEDS: PIOGLITAZONE HCL 30 MG TAB PO SCH (08:42)
[2017-10-28] MEDS: DULoxetine HCl DR 30 MG CAP PO SCH (08:42)
[2017-10-28] MEDS: LOSARTAN 50 MG TAB PO SCH (08:42)
[2017-10-28] MEDS: MORPHINE SULFATE 15 MG CONTROLLED RELEASE TAB PO SCH ×2 (08:42→21:13)
[2017-10-28] MEDS: predniSONE 50 MG TAB PO SCH (08:42)
[2017-10-28] MEDS: ASPIRIN EC 81 MG TABEC PO SCH (08:42)
[2017-10-28] MEDS: PANTOPRAZOLE SOD 40 MG DELAYED RELEASE TAB PO SCH (08:42)
[2017-10-28] MEDS: SODIUM CHLORIDE 0.9% FLUSH 10 ML FLUSH IV FLUSH SCH ×2 (08:44→21:14)
--- NOTE | 2017-10-28 09:24 | HHI.FPPN ---
Subjective Remarks No acute events overnight. Pt sitting up in bed this AM. Complains of unchanged pain from L back to hip to left knee. Less muscles spasm reported. Eating well. 1 BM recorded yesterday. Denies CP, SOB, abdominal pain, and N/V. Spoke with sister, Lianet Carcamo ([phone]) on the phone this morning. She reports that her brother is dyslexic and has a difficult time understanding things. She reports that the patient was not a candidate for neurosurgery with Dr. Pritchard due to obesity and DM. Her family has talked to their brother about going to assisted living, but he refuses. She would like us to speak to him about considering assisted living. Objective Vitals Vital Signs Date Time Temp Pulse Resp B/P (MAP) Pulse Ox O2 Delivery O2 Flow Rate FiO2 10/28/17 08:19 96.3 81 20 175/88 (117) 92 10/28/17 06:35 18 10/28/17 05:02 98.1 82 20 124/58 (80) 95 10/28/17 00:44 98.0 82 20 108/70 (83) 97 10/27/17 23:59 20 10/27/17 20:51 97.7 85 19 139/71 (93) 98 10/27/17 15:32 97.7 85 18 124/59 (80) 97 10/27/17 11:17 97.6 88 19 139/91 (107) 97 I/O 10/27/17 10/27/17 10/27/17 10/28/17 10/28/17 10/28/17 07:00 15:00 23:00 07:00 15:00 23:00 Intake Total 600 ml 875 ml Balance 600 ml 875 ml Intake Oral 600 ml 875 ml # Voids 1 # Bowel Movements 1 Result Diagram: 10/25/177 10/25/17 045 Objective Remarks GENERAL: Alert, sitting up on side of bed, NAD SKIN: No rashes, ecchymoses or lesions. Cool and dry. His lower extremities are hairless, with hypertrophic toenails, and hyperpigmentation of both medial lower legs. HEAD: NC/AT EYES: EOMI. No conjunctival injection or drainage. ENT: MMM, OP without erythema, tonsillar swelling, or exudate. NECK: Supple, no lymphadenopathy. No palpable thyromegaly CARDIOVASCULAR: NRRR. Normal S1/S2. No MRG RESPIRATORY: CTAB. No crackles or wheezes. GASTROINTESTINAL: Abdomen soft, non-distended, obese, nontender. No hepato- splenomegaly or palpable masses. MUSCULOSKELETAL: Extremities without clubbing, cyanosis, or edema. Loss of dermal appendages both lower extremities as noted above NEUROLOGICAL: Awake and alert. Cranial nerves grossly intact. Moves all extremities without difficulty. Normal speech. Sensation decreased in the left lower extremity to light touch. Sensation on the right is normal. A/P Assessment and Plan 72 year old man w/ PMH of HTN, HLD, T2DM, and chronic left lower extremity pain with lumbar radiculopathy with known left L5-S1 foraminal herniated nucleus pulposus on chronic narcotics. Admitted to observation for further evaluation and treatment due to inability to ambulate secondary to severe sciatic pain. Discharge Planning Patient needing PT at rehab Case management assisting with placement given patient not meeting inpatient criteria Problem List: (1) Lumbar radiculopathy ICD Codes: M54.16 - Lumbar radiculopathy Status: Acute Plan: Hx of chronic left lower extremity pain. s/p laminectomy with spinal fusion. On chronic narcotics followed by [facility] neurology and Dr. Pritchard. MRI spine 09/24/17 showed mild to moderate spinal canal stenosis at L3-4 and L4- 5. Mild spinal canal stenosis at L2-3. S/p lumbar spinal fusion at L5-S1. b/l facet arthritis at multiple levels. Continue Prednisone 50 mg daily Continue home analgesics: Gabapentin 600mg PO daily Gabapentin 1200mg daily HS Lyrica 50mg PO daily Flexeril 10mg PO q8hr Morphine 15mg PO BID Narco 10 mg 1 tab PO q4h scheduled (2) Inability to walk ICD Codes: R26.2 - Difficulty in walking, not elsewhere classified Status: Acute Plan: PT recommending PT at rehab PT ordered daily to assist Plan as above (3) ERVIN (acute kidney injury) ICD Codes: N17.9 - Acute kidney failure, unspecified Plan: Cr. 1.81 on admission, baseline ~1.20 Improving Continue to monitor Avoid nephrotoxic agents as able (4) Lung nodule ICD Codes: R91.1 - Solitary pulmonary nodule Status: Acute Plan: Nonspecific 7mm nodule in R middle lobe on CT Consider outpatient follow up (5) DM II (diabetes mellitus, type II), controlled ICD Codes: E11.9 - Type 2 diabetes mellitus without complications Status: Chronic Plan: Continue home medications - Metformin 850 mg po tid - Nateglinide 120 mg po daily - Pioglitazone 30 mg po daily (6) Hypertension ICD Codes: I10 - Essential (primary) hypertension Status: Chronic Plan: Continue home antihypertensives: - Amlodipine 5 mg PO daily - Furosemide 40 mg PO daily - Held home Irbesartan (not available), substitute Losartan 50mg PO daily (7) Hypothyroid ICD Codes: E03.9 - Hypothyroidism, unspecified Status: Chronic Plan: - Resume home levothyroxine at 100 g daily on an empty stomach (8) Hyperlipemia ICD Codes: E78.5 - Hyperlipidemia, unspecified Status: Chronic Plan: -Atorvastatin 10mg daily HS (9) GERD (gastroesophageal reflux disease) ICD Codes: K21.9 - Gastro-esophageal reflux disease without esophagitis Status: Chronic Plan: Protonix 40 mg PO daily (10) Nutrition, metabolism, and development symptoms ICD Codes: R63.8 - Other symptoms and signs concerning food and fluid intake Plan: Diet: Diabetic diet Fluids: PO Electrolytes: monitor and replace as needed DVT ppx: Heparin 5000 units sq q12h Louisa Briones MD R1 Oct 28, 2017 09:24
[2017-10-28] MEDS: ATORVASTATIN 10 MG TAB PO SCH (21:13)
[2017-10-29 04:14] VITALS: BP 157/86; PULSE 104; RESP 18; TEMP 98.8; O2SAT 100
[2017-10-29] MEDS: HEPARIN SODIUM - SQ 10,000 UNITS/ML VIAL SQ SCH ×2 (04:22→17:29)
[2017-10-29] MEDS: ACETAMINOPHEN/HYDROcodone 325 MG/10 MG TAB PO SCH ×3 (04:22→17:30)
[2017-10-29] MEDS: LEVOTHYROXINE SODIUM 100 MCG TAB PO SCH (05:57)
[2017-10-29] MEDS: CYCLOBENZAPRINE HCL 10 MG TAB PO SCH ×3 (05:57→21:04)
[2017-10-29 08:10] VITALS: BP 177/84; PULSE 79; RESP 18; TEMP 95.9; O2SAT 94
[2017-10-29] MEDS: DOCUSATE SODIUM 50 MG/SENNA 8.6 MG TAB PO SCH ×2 (08:40→21:05)
[2017-10-29] MEDS: metFORMIN HCL 850 MG TAB PO SCH ×3 (08:40→17:30)
[2017-10-29] MEDS: GABAPENTIN 300 MG CAP PO SCH ×2 (08:40→21:05)
[2017-10-29] MEDS: PREGABALIN 25 MG CAP PO SCH (08:41)
[2017-10-29] MEDS: PIOGLITAZONE HCL 30 MG TAB PO SCH (08:41)
[2017-10-29] MEDS: PANTOPRAZOLE SOD 40 MG DELAYED RELEASE TAB PO SCH (08:41)
[2017-10-29] MEDS: predniSONE 50 MG TAB PO SCH (08:41)
[2017-10-29] MEDS: MORPHINE SULFATE 15 MG CONTROLLED RELEASE TAB PO SCH ×2 (08:41→21:04)
[2017-10-29] MEDS: ALLOPURINOL 100 MG TAB PO SCH (08:41)
[2017-10-29] MEDS: FUROSEMIDE 40 MG TAB PO SCH (08:42)
[2017-10-29] MEDS: DULoxetine HCl DR 30 MG CAP PO SCH (08:42)
[2017-10-29] MEDS: SODIUM CHLORIDE 0.9% FLUSH 10 ML FLUSH IV FLUSH SCH ×2 (08:42→21:03)
[2017-10-29] MEDS: amLODIPine BESYLATE 5 MG TAB PO SCH (08:42)
[2017-10-29] MEDS: ASPIRIN EC 81 MG TABEC PO SCH (08:42)
[2017-10-29] MEDS: LOSARTAN 50 MG TAB PO SCH (08:44)
[2017-10-29 12:20] VITALS: BP 144/66; PULSE 81; RESP 18; TEMP 96; O2SAT 95
[2017-10-29 16:55] VITALS: BP 149/72; PULSE 86; RESP 18; TEMP 97.5; O2SAT 95
[2017-10-29 19:28] VITALS: BP 171/80; PULSE 86; RESP 18; TEMP 98.5; O2SAT 95
[2017-10-29] MEDS: ATORVASTATIN 10 MG TAB PO SCH (21:11)
[2017-10-30 00:10] VITALS: BP 164/77; PULSE 83; RESP 18; TEMP 98; O2SAT 97
[2017-10-30] MEDS: ACETAMINOPHEN/HYDROcodone 325 MG/10 MG TAB PO SCH ×5 (01:31→23:18)
[2017-10-30 03:45] VITALS: BP 149/89; PULSE 82; RESP 18; TEMP 98; O2SAT 95
[2017-10-30] MEDS: HEPARIN SODIUM - SQ 10,000 UNITS/ML VIAL SQ SCH ×2 (05:38→18:12)
[2017-10-30] MEDS: CYCLOBENZAPRINE HCL 10 MG TAB PO SCH (05:39)
[2017-10-30] MEDS: LEVOTHYROXINE SODIUM 100 MCG TAB PO SCH (06:47)
[2017-10-30 07:16] LABS: AUTOMATED NEUTROPHIL # 8.3 TH/MM3 (1.8-7.7); BASOPHIL % 0.3 % (0.0-2.0); EOSINOPHIL # 0.1 TH/MM3 (0-0.4); EOSINOPHIL % 0.8 % (0.0-4.0); HEMATOCRIT 33.5 % (39.0-51.0); HEMO FLAGS DIFF FINAL; LYMPHOCYTE # 3.3 TH/MM3 (1.0-4.8); MEAN CELL VOLUME 83.6 FL (80.0-100.0); MEAN CORPUSCULAR HEMOGLOBIN 28.1 PG (27.0-34.0); MEAN CORPUSCULAR HGB CONC 33.6 % (32.0-36.0); MONO % 6.8 % (0.0-8.0); NEUT % 66.1 % (16.0-70.0); PLATELET COUNT 314 TH/MM3 (150-450); RED BLOOD COUNT 4.01 MIL/MM3 (4.50-5.90); RED CELL DISTRIBUTION WIDTH 15.6 % (11.6-17.2); WHITE BLOOD COUNT 12.6 TH/MM3 (4.0-11.0)
[2017-10-30 07:49] LABS: ANION GAP 8 MEQ/L (5-15); AST (GOT) 24 U/L (15-37); BICARBONATE 27.3 MEQ/L (21.0-32.0); BLOOD UREA NITROGEN 27 MG/DL (7-18); CHLORIDE 101 MEQ/L (98-107); GLOMERULAR FILTRATION RATE 59 ML/MIN (>89); POTASSIUM 3.9 MEQ/L (3.5-5.1); SODIUM (NA) 136 MEQ/L (136-145)
[2017-10-30 07:52] LABS: ALKALINE PHOSPHATASE 81 U/L (45-117); ALT (GPT) 22 U/L (12-78); TOTAL BILIRUBIN ADULT 0.4 MG/DL (0.2-1.0)
[2017-10-30 07:59] VITALS: BP 173/81; PULSE 81; RESP 20; TEMP 98.2; O2SAT 94
[2017-10-30] MEDS: PREGABALIN 25 MG CAP PO SCH (08:24)
[2017-10-30] MEDS: ASPIRIN EC 81 MG TABEC PO SCH (08:24)
[2017-10-30] MEDS: GABAPENTIN 300 MG CAP PO SCH (08:24)
[2017-10-30] MEDS: predniSONE 50 MG TAB PO SCH (08:24)
[2017-10-30] MEDS: metFORMIN HCL 850 MG TAB PO SCH ×3 (08:24→18:11)
[2017-10-30] MEDS: DOCUSATE SODIUM 50 MG/SENNA 8.6 MG TAB PO SCH ×2 (08:25→20:30)
[2017-10-30] MEDS: DULoxetine HCl DR 30 MG CAP PO SCH (08:25)
[2017-10-30] MEDS: FUROSEMIDE 40 MG TAB PO SCH (08:25)
[2017-10-30] MEDS: PIOGLITAZONE HCL 30 MG TAB PO SCH (08:25)
[2017-10-30] MEDS: PANTOPRAZOLE SOD 40 MG DELAYED RELEASE TAB PO SCH (08:26)
[2017-10-30] MEDS: ALLOPURINOL 100 MG TAB PO SCH (08:26)
[2017-10-30] MEDS: MORPHINE SULFATE 15 MG CONTROLLED RELEASE TAB PO SCH ×2 (08:26→20:30)
[2017-10-30] MEDS: amLODIPine BESYLATE 5 MG TAB PO SCH (08:27)
[2017-10-30] MEDS: LOSARTAN 50 MG TAB PO SCH (08:32)
[2017-10-30] MEDS ORDERED: KETOROLAC TROMETHAMINE 60 MG/2 ML (IM) VIAL IM ONE (09:30)
--- NOTE | 2017-10-30 10:50 | HHI.FPPN ---
Subjective Remarks No acute events overnight. Pt sitting up in bed, in discomfort. Complains of left hip pain radiating to left knee. Denies muscle spasms. States that he slept well until this morning when he moved around. Reports that he only can stand a couple of seconds with PT. Eating well. 1 BM yesterday. (Louisa Briones MD R1) Objective Vitals Vital Signs Date Time Temp Pulse Resp B/P (MAP) Pulse Ox O2 Delivery O2 Flow Rate FiO2 10/30/17 09:24 20 10/30/17 09:24 20 10/30/17 07:59 98.2 81 20 173/81 (111) 94 10/30/17 03:45 98.0 82 18 149/89 (109) 95 10/30/17 00:10 98.0 83 18 164/77 (106) 97 10/29/17 19:28 98.5 86 18 171/80 (110) 95 10/29/17 16:55 97.5 86 18 149/72 (97) 95 10/29/17 12:20 96.0 81 18 144/66 (92) 95 I/O 10/29/17 10/29/17 10/29/17 10/30/17 10/30/17 10/30/17 07:00 15:00 23:00 07:00 15:00 23:00 Intake Total 950 ml Output Total 1100 ml Balance -150 ml Intake Oral 950 ml Output Urine Total 1100 ml # Voids 1 (Louisa Briones MD R1) Result Diagram: 10/30/17 0630 10/30/17 0630 Objective Remarks GENERAL: Alert, sitting up on side of bed, in slight discomfort SKIN: No rashes, ecchymoses or lesions. Cool and dry. His lower extremities are hairless, with hypertrophic toenails, and hyperpigmentation of both medial lower legs. HEAD: NC/AT EYES: EOMI. No conjunctival injection or drainage. ENT: MMM, OP without erythema, tonsillar swelling, or exudate. NECK: Supple, no lymphadenopathy. No palpable thyromegaly CARDIOVASCULAR: NRRR. Normal S1/S2. No MRG RESPIRATORY: CTAB. No crackles or wheezes. GASTROINTESTINAL: Abdomen soft, non-distended, obese, nontender. No hepato- splenomegaly or palpable masses. MUSCULOSKELETAL: Extremities without clubbing, cyanosis, or edema. Loss of dermal appendages both lower extremities as noted above. Moderate tenderness to palpation of left hip to left knee. NEUROLOGICAL: Awake and alert. Cranial nerves grossly intact. Moves all extremities without difficulty. Normal speech. Sensation decreased in the left lower extremity to light touch. Sensation on the right is normal. (Louisa Briones MD R1) A/P Assessment and Plan 72 year old man w/ PMH of HTN, HLD, T2DM, and chronic left lower extremity pain with lumbar radiculopathy with known left L5-S1 foraminal herniated nucleus pulposus on chronic narcotics. Admitted to observation for further evaluation and treatment due to inability to ambulate secondary to severe sciatic pain. Discharge Planning Patient needing PT at rehab Patient not a candidate for back surgery due to BMI and DM Case management assisting with placement given patient not meeting inpatient criteria (Louisa Briones MD R1) Attending Attestation Medical rounds reguarding this patient performed with Dr Chetan Briones this morning, detailed discussion relating to patients hospital course held, patient seen and examined, agree to documentation in this note, See Orders Pain 06/24 on rounds this am,see changes in meds (Yahir Harrell MD) Problem List: (1) Lumbar radiculopathy ICD Codes: M54.16 - Lumbar radiculopathy Status: Acute Plan: Hx of chronic left lower extremity pain. s/p laminectomy with spinal fusion. On chronic narcotics followed by [facility] neurology and Dr. Pritchard. MRI spine 09/24/17 showed mild to moderate spinal canal stenosis at L3-4 and L4- 5. Mild spinal canal stenosis at L2-3. S/p lumbar spinal fusion at L5-S1. b/l facet arthritis at multiple levels. Toradol 30mg IM once Continue Prednisone 50 mg daily Start Soma 350mg PO q6h Start Diclofenac 50mg PO daily Start Gabapentin 800mg PO TID Lyrica 50mg PO daily Morphine 15mg PO BID Narco 10 mg 1 tab PO q4h scheduled Pain management not available to consult (2) Inability to walk ICD Codes: R26.2 - Difficulty in walking, not elsewhere classified Status: Acute Plan: PT recommending PT at rehab PT ordered daily to assist Plan as above (3) DM II (diabetes mellitus, type II), controlled ICD Codes: E11.9 - Type 2 diabetes mellitus without complications Status: Chronic Plan: Continue home medications - Metformin 850 mg po tid - Nateglinide 120 mg po daily - Pioglitazone 30 mg po daily - Low SS -Check A1c (4) Lung nodule ICD Codes: R91.1 - Solitary pulmonary nodule Status: Acute Plan: Nonspecific 7mm nodule in R middle lobe on CT Consider outpatient follow up (5) ERVIN (acute kidney injury) ICD Codes: N17.9 - Acute kidney failure, unspecified Status: Resolved Plan: Cr. 1.81 on admission, baseline ~1.20 Improving Continue to monitor Avoid nephrotoxic agents as able (6) Hypertension ICD Codes: I10 - Essential (primary) hypertension Status: Chronic Plan: Continue home antihypertensives: - Amlodipine 5 mg PO daily - Furosemide 40 mg PO daily - Held home Irbesartan (not available), substitute Losartan 50mg PO daily (7) Hypothyroid ICD Codes: E03.9 - Hypothyroidism, unspecified Status: Chronic Plan: - Resume home levothyroxine at 100 g daily on an empty stomach (8) Hyperlipemia ICD Codes: E78.5 - Hyperlipidemia, unspecified Status: Chronic Plan: -Atorvastatin 10mg daily HS (9) GERD (gastroesophageal reflux disease) ICD Codes: K21.9 - Gastro-esophageal reflux disease without esophagitis Status: Chronic Plan: Protonix 40 mg PO daily (10) Nutrition, metabolism, and development symptoms ICD Codes: R63.8 - Other symptoms and signs concerning food and fluid intake Plan: Diet: Diabetic diet Fluids: PO Electrolytes: monitor and replace as needed DVT ppx: Heparin 5000 units sq q12h (Louisa Briones MD R1) Louisa Briones MD R1 Oct 30, 2017 10:50 Yahir Harrell MD Oct 31, 2017 10:49
[2017-10-30] MEDS: CARISOPRODOL 350 MG TAB PO SCH ×3 (11:36→23:17)
[2017-10-30 12:08] VITALS: BP 118/56; PULSE 80; RESP 20; TEMP 98.6; O2SAT 98
[2017-10-30] MEDS: INSULIN ASPART SUPPLEMENTAL SCALE SQ SCH ×3 (13:00→22:18)
[2017-10-30] MEDS: GABAPENTIN 400 MG CAP PO SCH ×2 (13:02→18:11)
[2017-10-30] MEDS: SODIUM CHLORIDE 0.9% FLUSH 10 ML FLUSH IV FLUSH SCH ×2 (13:02→20:30)
[2017-10-30] MEDS: DICLOFENAC SODIUM 50 MG DELAYED RELEASE TAB PO SCH (13:02)
[2017-10-30 19:44] VITALS: BP 125/71; PULSE 81; RESP 18; TEMP 98.2; O2SAT 93
[2017-10-30] MEDS: ATORVASTATIN 10 MG TAB PO SCH (20:30)
[2017-10-30 23:10] VITALS: BP 120/68; PULSE 79; RESP 19; TEMP 98.1; O2SAT 94
[2017-10-31 04:26] VITALS: BP 118/62; PULSE 80; RESP 19; TEMP 98.4; O2SAT 94
[2017-10-31] MEDS: LEVOTHYROXINE SODIUM 100 MCG TAB PO SCH (05:03)
[2017-10-31] MEDS: CARISOPRODOL 350 MG TAB PO SCH ×4 (05:03→23:35)
[2017-10-31] MEDS: ACETAMINOPHEN/HYDROcodone 325 MG/10 MG TAB PO SCH ×4 (05:04→23:35)
[2017-10-31] MEDS: HEPARIN SODIUM - SQ 10,000 UNITS/ML VIAL SQ SCH ×2 (05:05→18:00)
[2017-10-31 07:42] VITALS: BP 148/67; PULSE 81; RESP 18; TEMP 96.7; O2SAT 94
[2017-10-31] MEDS: INSULIN ASPART SUPPLEMENTAL SCALE SQ SCH ×4 (08:00→22:08)
[2017-10-31] MEDS: SODIUM CHLORIDE 0.9% FLUSH 10 ML FLUSH IV FLUSH SCH ×2 (09:00→22:06)
[2017-10-31] MEDS: DULoxetine HCl DR 30 MG CAP PO SCH (09:05)
[2017-10-31] MEDS: metFORMIN HCL 850 MG TAB PO SCH ×3 (09:05→17:58)
[2017-10-31] MEDS: GABAPENTIN 400 MG CAP PO SCH ×3 (09:05→17:58)
[2017-10-31] MEDS: DOCUSATE SODIUM 50 MG/SENNA 8.6 MG TAB PO SCH ×2 (09:06→22:06)
[2017-10-31] MEDS: PREGABALIN 25 MG CAP PO SCH (09:06)
[2017-10-31] MEDS: predniSONE 50 MG TAB PO SCH (09:06)
[2017-10-31] MEDS: PANTOPRAZOLE SOD 40 MG DELAYED RELEASE TAB PO SCH (09:06)
[2017-10-31] MEDS: MORPHINE SULFATE 15 MG CONTROLLED RELEASE TAB PO SCH ×2 (09:07→22:07)
[2017-10-31] MEDS: ALLOPURINOL 100 MG TAB PO SCH (09:07)
[2017-10-31] MEDS: PIOGLITAZONE HCL 30 MG TAB PO SCH (09:07)
[2017-10-31] MEDS: amLODIPine BESYLATE 5 MG TAB PO SCH (09:08)
[2017-10-31] MEDS: ASPIRIN EC 81 MG TABEC PO SCH (09:08)
[2017-10-31] MEDS: FUROSEMIDE 40 MG TAB PO SCH (09:08)
[2017-10-31] MEDS: LOSARTAN 50 MG TAB PO SCH (09:13)
[2017-10-31] MEDS: DICLOFENAC SODIUM 50 MG DELAYED RELEASE TAB PO SCH (09:14)
--- NOTE | 2017-10-31 10:16 | HHI.FPPN ---
Subjective Remarks No acute events overnight. Pt lying in bed this AM. Reports that he is doing better. L sciatic pain 02/22. Reports that the Toradol 30mg IM significantly reduced his pain. Otherwise, no other complaints this AM. Afebrile. VSS. (Louisa Gibson MD R1) Objective Vitals Vital Signs Date Time Temp Pulse Resp B/P (MAP) Pulse Ox O2 Delivery O2 Flow Rate FiO2 10/31/17 07:42 96.7 81 18 148/67 (94) 94 10/31/17 04:26 98.4 80 19 118/62 (80) 94 10/30/17 23:10 98.1 79 19 120/68 (85) 94 10/30/17 22:14 15 10/30/17 19:44 98.2 81 18 125/71 (89) 93 10/30/17 12:36 20 10/30/17 12:36 20 10/30/17 12:08 98.6 80 20 118/56 (76) 98 I/O 10/30/17 10/30/17 10/30/17 10/31/17 10/31/17 10/31/17 07:00 15:00 23:00 07:00 15:00 23:00 Intake Total 800 ml 480 ml Output Total 950 ml Balance -150 ml 480 ml Intake Oral 800 ml 480 ml Output Urine Total 950 ml # Voids 3 (Louisa Gibson MD R1) Result Diagram: 10/30/17 0630 10/30/17 0630 Objective Remarks GENERAL: lying in bed, NAD SKIN: No rashes, ecchymoses or lesions. Cool and dry. His lower extremities are hairless, with hypertrophic toenails, and hyperpigmentation of both medial lower legs. HEAD: NC/AT EYES: EOMI. No conjunctival injection or drainage. ENT: MMM, OP without erythema, tonsillar swelling, or exudate. NECK: Supple, no lymphadenopathy. No palpable thyromegaly CARDIOVASCULAR: NRRR. Normal S1/S2. No MRG RESPIRATORY: CTAB. No crackles or wheezes. GASTROINTESTINAL: Abdomen soft, non-distended, obese, nontender. No hepato- splenomegaly or palpable masses. MUSCULOSKELETAL: Extremities without clubbing, cyanosis, or edema. Loss of dermal appendages both lower extremities as noted above. NEUROLOGICAL: Awake and alert. Oriented x3. (Louisa Gibson MD R1) A/P Assessment and Plan 72 year old man w/ PMH of HTN, HLD, T2DM, and chronic left lower extremity pain with lumbar radiculopathy with known left L5-S1 foraminal herniated nucleus pulposus on chronic narcotics. Admitted to observation for further evaluation and treatment due to inability to ambulate secondary to severe sciatic pain. Discharge Planning Patient needing PT at rehab Patient not a candidate for back surgery due to BMI and DM Case management assisting with placement given patient not meeting inpatient criteria (Louisa Gibson MD R1) Attending Attestation THIS CASE WAS DISCUSSED WITH THE RESIDENT PHYSICIAN,DR Chetan GIBSON. I HAVE REVIEWED THE RECORD,PATIENT SEEN AND EXAMINED AND AGREE WITH THE ABOVE NOTE AND PLAN OF CARE WAS DISCUSSED. I HAVE AUTHORIZED THE ORDERS. (Yahir Harrell MD) Problem List: (1) Lumbar radiculopathy ICD Codes: M54.16 - Lumbar radiculopathy Status: Acute Plan: Hx of chronic left lower extremity pain. s/p laminectomy with spinal fusion. On chronic narcotics followed by [facility] neurology and Dr. Pritchard. MRI spine 09/24/17 showed mild to moderate spinal canal stenosis at L3-4 and L4- 5. Mild spinal canal stenosis at L2-3. S/p lumbar spinal fusion at L5-S1. b/l facet arthritis at multiple levels. Continue medications below: Prednisone 50 mg daily (Started 10/26) Soma 350mg PO q6h Diclofenac 50mg PO daily Gabapentin 800mg PO TID Lyrica 50mg PO daily Morphine 15mg PO BID Narco 10 mg 1 tab PO q4h scheduled Pain management not available to consult (2) Inability to walk ICD Codes: R26.2 - Difficulty in walking, not elsewhere classified Status: Acute Plan: PT recommending PT at rehab PT ordered daily to assist Plan as above (3) DM II (diabetes mellitus, type II), controlled ICD Codes: E11.9 - Type 2 diabetes mellitus without complications Status: Chronic Plan: Continue home medications - Metformin 850 mg po tid - Nateglinide 120 mg po daily - Pioglitazone 30 mg po daily - Low SS -A1c pending (4) Lung nodule ICD Codes: R91.1 - Solitary pulmonary nodule Status: Acute Plan: Nonspecific 7mm nodule in R middle lobe on CT Consider outpatient follow up (5) ERVIN (acute kidney injury) ICD Codes: N17.9 - Acute kidney failure, unspecified Status: Resolved Plan: Cr. 1.81 on admission, baseline ~1.20 Improving Continue to monitor Avoid nephrotoxic agents as able (6) Hypertension ICD Codes: I10 - Essential (primary) hypertension Status: Chronic Plan: Continue home antihypertensives: - Amlodipine 5 mg PO daily - Furosemide 40 mg PO daily - Held home Irbesartan (not available), substitute Losartan 50mg PO daily (7) Hypothyroid ICD Codes: E03.9 - Hypothyroidism, unspecified Status: Chronic Plan: - Resume home levothyroxine at 100 g daily on an empty stomach (8) Hyperlipemia ICD Codes: E78.5 - Hyperlipidemia, unspecified Status: Chronic Plan: -Atorvastatin 10mg daily HS (9) GERD (gastroesophageal reflux disease) ICD Codes: K21.9 - Gastro-esophageal reflux disease without esophagitis Status: Chronic Plan: Protonix 40 mg PO daily (10) Nutrition, metabolism, and development symptoms ICD Codes: R63.8 - Other symptoms and signs concerning food and fluid intake Plan: Diet: Diabetic diet Fluids: PO Electrolytes: monitor and replace as needed DVT ppx: Heparin 5000 units sq q12h (Louisa Gibson MD R1) Problem Qualifiers (1) Hypertension: Qualified Codes: I10 - Essential (primary) hypertension (2) Hypothyroid: Qualified Codes: E03.9 - Hypothyroidism, unspecified (3) GERD (gastroesophageal reflux disease): Qualified Codes: K21.9 - Gastro-esophageal reflux disease without esophagitis Louisa Gibson MD R1 Oct 31, 2017 10:16 Yahir Harrell MD Nov 02, 2017 21:12
[2017-10-31 11:06] LABS: HEMOGLOBIN A1a 1.2 %; HEMOGLOBIN A1b 2.7 %; HEMOGLOBIN Ao 80.9 %; HEMOGLOBIN LA1C 2.1 %; HEMOGLOBIN P3 4.8 %
[2017-10-31 11:37] VITALS: BP 137/75; PULSE 82; RESP 18; TEMP 97.6; O2SAT 93
[2017-10-31 16:00] VITALS: BP 117/89; PULSE 76; RESP 18; TEMP 97.6; O2SAT 94
--- NOTE | 2017-10-31 19:27 | HHI.PR ---
Addendum to Inpatient Note Addendum Reason: Additional Documentation Additional Information Off-service note: Mr. Acevedo is a 72 year old man w/ PMH of HTN, HLD, T2DM, and chronic left lower extremity pain with lumbar radiculopathy with known left L5-S1 foraminal herniated nucleus pulposus on chronic narcotics. Admitted to observation for further evaluation and treatment due to inability to ambulate secondary to severe sciatic pain. Patient needing PT at rehab, however, patient not a candidate for back surgery due to BMI and DM. Case management assisting with placement given patient not meeting inpatient criteria. Several pain medications given this hospital stay to control pain. Patient started on Prednisone 50mg daily 12/12, Soma, Diclonfenac, Gabapentin (see progress note and orders for all medications). He seems to be improving slightly. Goal is to get his pain controlled enough where he can function on his own. He will continue to work with PT daily. Anticipate discharge with home health PT. Louisa Briones MD R1 Oct 31, 2017 19:27
[2017-10-31 20:06] VITALS: BP 120/86; PULSE 77; RESP 18; TEMP 97.8; O2SAT 98
[2017-10-31] MEDS: ATORVASTATIN 10 MG TAB PO SCH (22:07)
[2017-10-31 23:25] VITALS: BP 128/82; PULSE 79; RESP 18; TEMP 98; O2SAT 99
[2017-11-01 03:10] VITALS: BP 130/70; PULSE 76; RESP 18; TEMP 98; O2SAT 97
[2017-11-01] MEDS: LEVOTHYROXINE SODIUM 100 MCG TAB PO SCH (05:42)
[2017-11-01] MEDS: HEPARIN SODIUM - SQ 10,000 UNITS/ML VIAL SQ SCH (05:42)
[2017-11-01] MEDS: ACETAMINOPHEN/HYDROcodone 325 MG/10 MG TAB PO SCH ×2 (05:43→10:00)
[2017-11-01] MEDS: CARISOPRODOL 350 MG TAB PO SCH ×2 (05:43→13:02)
[2017-11-01 07:31] VITALS: BP 156/81; PULSE 78; RESP 18; TEMP 98; O2SAT 94
[2017-11-01] MEDS: INSULIN ASPART SUPPLEMENTAL SCALE SQ SCH ×2 (08:00→12:00)
[2017-11-01] MEDS: DOCUSATE SODIUM 50 MG/SENNA 8.6 MG TAB PO SCH (10:00)
[2017-11-01] MEDS: GABAPENTIN 400 MG CAP PO SCH ×2 (10:01→13:02)
[2017-11-01] MEDS: DULoxetine HCl DR 30 MG CAP PO SCH (10:01)
[2017-11-01] MEDS: PANTOPRAZOLE SOD 40 MG DELAYED RELEASE TAB PO SCH (10:01)
[2017-11-01] MEDS: metFORMIN HCL 850 MG TAB PO SCH ×2 (10:01→13:03)
[2017-11-01] MEDS: DICLOFENAC SODIUM 50 MG DELAYED RELEASE TAB PO SCH (10:01)
[2017-11-01] MEDS: MORPHINE SULFATE 15 MG CONTROLLED RELEASE TAB PO SCH (10:01)
[2017-11-01] MEDS: ASPIRIN EC 81 MG TABEC PO SCH (10:01)
[2017-11-01] MEDS: predniSONE 50 MG TAB PO SCH (10:02)
[2017-11-01] MEDS: FUROSEMIDE 40 MG TAB PO SCH (10:02)
[2017-11-01] MEDS: ALLOPURINOL 100 MG TAB PO SCH (10:02)
[2017-11-01] MEDS: amLODIPine BESYLATE 5 MG TAB PO SCH (10:02)
[2017-11-01] MEDS: SODIUM CHLORIDE 0.9% FLUSH 10 ML FLUSH IV FLUSH SCH (10:02)
[2017-11-01] MEDS: PIOGLITAZONE HCL 30 MG TAB PO SCH (10:02)
[2017-11-01] MEDS: LOSARTAN 50 MG TAB PO SCH (10:02)
[2017-11-01] MEDS: PREGABALIN 25 MG CAP PO SCH (10:02)
--- NOTE | 2017-11-01 10:40 | HHI.FPPN ---
Subjective Remarks Patient seen and examined this morning. Denies any complaints/concerns. Reports doing well. Reports pain is well-controlled. States he has been trying to get up and walk a little bit, mainly to the commode. Has had some left knee soreness last few days or so, but ice helps. Denies any chest pain, shortness of breath, nausea/vomiting, calf pain. Objective Vitals Vital Signs Date Time Temp Pulse Resp B/P (MAP) Pulse Ox O2 Delivery O2 Flow Rate FiO2 11/01/17 07:31 98.0 78 18 156/81 (106) 94 11/01/17 03:10 98.0 76 18 130/70 (90) 97 10/31/17 23:25 98.0 79 18 128/82 (97) 99 10/31/17 20:06 97.8 77 18 120/86 (97) 98 10/31/17 18:58 20 10/31/17 18:58 20 10/31/17 16:00 97.6 76 18 117/89 (98) 94 10/31/17 11:37 97.6 82 18 137/75 (95) 93 I/O 10/31/17 10/31/17 10/31/17 11/01/17 11/01/17 11/01/17 07:00 15:00 23:00 07:00 15:00 23:00 Intake Total 480 ml 600 ml 500 ml Balance 480 ml 600 ml 500 ml Intake Oral 480 ml 600 ml 500 ml # Voids 2 Result Diagram: 10/30/17 0630 10/30/17 0630 Objective Remarks GENERAL: lying in bed, NAD SKIN: No rashes, ecchymoses or lesions. Cool and dry. His lower extremities are hairless, with hypertrophic toenails, and hyperpigmentation of both medial lower legs. CARDIOVASCULAR: RRR. Normal S1/S2. No MRG RESPIRATORY: CTAB. No crackles or wheezes. GASTROINTESTINAL: Abdomen soft, non-distended, obese, nontender. No hepato- splenomegaly or palpable masses. MUSCULOSKELETAL: Extremities without clubbing, cyanosis, or edema. Loss of dermal appendages both lower extremities as noted above. NEUROLOGICAL: Awake and alert. Oriented x3. A/P Assessment and Plan 72 year old man w/ PMH of HTN, HLD, T2DM, and chronic left lower extremity pain with lumbar radiculopathy with known left L5-S1 foraminal herniated nucleus pulposus on chronic narcotics. Admitted to observation for further evaluation and treatment due to inability to ambulate secondary to severe sciatic pain. Discharge Planning Patient needing PT at rehab Patient not a candidate for back surgery due to BMI and DM Case management assisting with placement given patient not meeting inpatient criteria; likely will d/c with home health Problem List: (1) Lumbar radiculopathy ICD Codes: M54.16 - Lumbar radiculopathy Status: Acute Plan: Hx of chronic left lower extremity pain. s/p laminectomy with spinal fusion. On chronic narcotics followed by [facility] neurology and Dr. Pritchard. MRI spine 09/24/17 showed mild to moderate spinal canal stenosis at L3-4 and L4- 5. Mild spinal canal stenosis at L2-3. S/p lumbar spinal fusion at L5-S1. b/l facet arthritis at multiple levels. Continue medications below: Prednisone 50 mg daily (Started 10/26) Soma 350mg PO q6h Diclofenac 50mg PO daily Gabapentin 800mg PO TID Lyrica 50mg PO daily Morphine 15mg PO BID Narco 10 mg 1 tab PO q4h scheduled Pain management not available to consult (2) Inability to walk ICD Codes: R26.2 - Difficulty in walking, not elsewhere classified Status: Acute Plan: PT recommending PT at rehab PT ordered daily to assist Plan as above (3) DM II (diabetes mellitus, type II), controlled ICD Codes: E11.9 - Type 2 diabetes mellitus without complications Status: Chronic Plan: A1c 7.7. Continue home medications - Metformin 850 mg po tid - Nateglinide 120 mg po daily - Pioglitazone 30 mg po daily - Low-dose sliding scale insulin (4) Lung nodule ICD Codes: R91.1 - Solitary pulmonary nodule Status: Acute Plan: Nonspecific 7mm nodule in R middle lobe on CT Consider outpatient follow up (5) ERVIN (acute kidney injury) ICD Codes: N17.9 - Acute kidney failure, unspecified Status: Resolved Plan: Cr. 1.81 on admission, baseline ~1.20 Improving Continue to monitor Avoid nephrotoxic agents as able (6) Hypertension ICD Codes: I10 - Essential (primary) hypertension Status: Chronic Plan: Continue home antihypertensives: - Amlodipine 5 mg PO daily - Furosemide 40 mg PO daily - Held home Irbesartan (not available), substitute Losartan 50mg PO daily (7) Hypothyroid ICD Codes: E03.9 - Hypothyroidism, unspecified Status: Chronic Plan: - Resume home levothyroxine at 100 g daily on an empty stomach (8) Hyperlipemia ICD Codes: E78.5 - Hyperlipidemia, unspecified Status: Chronic Plan: -Atorvastatin 10mg daily HS (9) GERD (gastroesophageal reflux disease) ICD Codes: K21.9 - Gastro-esophageal reflux disease without esophagitis Status: Chronic Plan: Protonix 40 mg PO daily (10) Nutrition, metabolism, and development symptoms ICD Codes: R63.8 - Other symptoms and signs concerning food and fluid intake Plan: Diet: Diabetic diet Fluids: PO Electrolytes: monitor and replace as needed DVT ppx: Heparin 5000 units sq q12h Problem Qualifiers (1) Hypertension: Qualified Codes: I10 - Essential (primary) hypertension (2) Hypothyroid: Qualified Codes: E03.9 - Hypothyroidism, unspecified (3) GERD (gastroesophageal reflux disease): Qualified Codes: K21.9 - Gastro-esophageal reflux disease without esophagitis Henrry Kimbrough MD, R2 Nov 01, 2017 10:40
[2017-11-01 12:12] VITALS: BP 141/71; PULSE 82; RESP 18; TEMP 98; O2SAT 93
--- NOTE | 2017-11-01 13:31 | HHI.FF ---
Face to Face Verification Diagnosis: (1) Morbid obesity with BMI of 40.0-44.9, adult (2) Impaired mobility and activities of daily living (3) Inability to walk (4) Lumbar radiculopathy (5) Lumbar degenerative disc disease (6) S/P laminectomy with spinal fusion Physical Therapy Order: Evaluate and Treat, Improve ambulation, Strength and gait training Occupational Therapy Order: Evaluate and Treat, Improve ADL, Gross motor coordination, Fine motor coordination [place] Order: To Evaluate: Living conditions/environment, Support services Order: To Provide: Long range planning, Community services I have seen patient Soy Acevedo on 11/01/17. My clinical findings support the need for the requested home health care services because: Ltd mobility - disease progression Deconditioned w/ increased weakness Limited ability to care for self High risk of falls I certify that my clinical findings support that this patient is homebound because: Unsteady gait/balance Unsafe to leave home unassisted Henrry Kimbrough MD, R2 Nov 01, 2017 13:31
[2017-11-01] MEDS ORDERED: NEUR400C PO (13:41)
[2017-11-01] MEDS ORDERED: CARI350T25 PO (13:41)
[2017-11-01] MEDS ORDERED: DICL50TA3 PO (13:41)
--- NOTE | 2017-11-01 13:42 | HHI.DCPOC ---
Discharge Care Plan Diagnosis: (1) Morbid obesity with BMI of 40.0-44.9, adult (2) Lung nodule (3) GERD (gastroesophageal reflux disease) (4) DM II (diabetes mellitus, type II), controlled (5) ERVIN (acute kidney injury) (6) Hypertension (7) Hypothyroid (8) Inability to walk (9) Impaired mobility and activities of daily living (10) Morbid obesity with BMI of 40.0-44.9, adult (11) Lumbar radiculopathy (12) Lumbar degenerative disc disease (13) S/P laminectomy with spinal fusion Goals to Promote Your Health * To prevent worsening of your condition and complications * To maintain your health at the optimal level Directions to Meet Your Goals Take your medications as prescribed Follow your dietary instruction Follow activity as directed Keep your appointments as scheduled Take your immunizations and boosters as scheduled If your symptoms worsen call your PCP, if no PCP go to Urgent Care Center or Emergency Room Smoking is Dangerous to Your Health. Avoid second hand smoke Call the 24-hour hour crisis hotline for domestic abuse at Henrry Kimbrough MD, R2 Nov 01, 2017 13:42
--- NOTE | 2017-11-01 13:43 | HHI.DS ---
Discharge Summary Admission Date Oct 24, 2017 at 16:03 Discharge Date: Nov 01, 2017 Admitting Diagnosis Inability to Ambulate (1) Lumbar radiculopathy Diagnosis: Principal Plan: Hx of chronic left lower extremity pain. s/p laminectomy with spinal fusion. On chronic narcotics followed by [facility] neurology and Dr. Pritchard. MRI spine 09/24/17 showed mild to moderate spinal canal stenosis at L3-4 and L4- 5. Mild spinal canal stenosis at L2-3. S/p lumbar spinal fusion at L5-S1. b/l facet arthritis at multiple levels. Continue medications below: Prednisone 50 mg daily (Started 10/26) Soma 350mg PO q6h Diclofenac 50mg PO daily Gabapentin 800mg PO TID Lyrica 50mg PO daily Morphine 15mg PO BID Narco 10 mg 1 tab PO q4h scheduled Pain management not available to consult ICD Codes: M54.16 - Lumbar radiculopathy Status: Acute (2) Inability to walk Diagnosis: Principal Plan: PT recommending PT at rehab PT ordered daily to assist Plan as above ICD Codes: R26.2 - Difficulty in walking, not elsewhere classified Status: Acute (3) DM II (diabetes mellitus, type II), controlled Diagnosis: Secondary Plan: A1c 7.7. Continue home medications - Metformin 850 mg po tid - Nateglinide 120 mg po daily - Pioglitazone 30 mg po daily - Low-dose sliding scale insulin ICD Codes: E11.9 - Type 2 diabetes mellitus without complications Status: Chronic (4) Lung nodule Diagnosis: Secondary Plan: Nonspecific 7mm nodule in R middle lobe on CT Consider outpatient follow up ICD Codes: R91.1 - Solitary pulmonary nodule Status: Acute (5) ERVIN (acute kidney injury) Diagnosis: Secondary Plan: Cr. 1.81 on admission, baseline ~1.20 Improving Continue to monitor Avoid nephrotoxic agents as able ICD Codes: N17.9 - Acute kidney failure, unspecified Status: Resolved (6) Hypertension Diagnosis: Secondary Plan: Continue home antihypertensives: - Amlodipine 5 mg PO daily - Furosemide 40 mg PO daily - Held home Irbesartan (not available), substitute Losartan 50mg PO daily ICD Codes: I10 - Essential (primary) hypertension Status: Chronic (7) Hypothyroid Diagnosis: Secondary Plan: - Resume home levothyroxine at 100 g daily on an empty stomach ICD Codes: E03.9 - Hypothyroidism, unspecified Status: Chronic (8) Hyperlipemia Diagnosis: Secondary Plan: -Atorvastatin 10mg daily HS ICD Codes: E78.5 - Hyperlipidemia, unspecified Status: Chronic (9) GERD (gastroesophageal reflux disease) Diagnosis: Secondary Plan: Protonix 40 mg PO daily ICD Codes: K21.9 - Gastro-esophageal reflux disease without esophagitis Status: Chronic (10) Nutrition, metabolism, and development symptoms Diagnosis: Secondary Plan: Diet: Diabetic diet Fluids: PO Electrolytes: monitor and replace as needed DVT ppx: Heparin 5000 units sq q12h ICD Codes: R63.8 - Other symptoms and signs concerning food and fluid intake Brief History 72 yr old M w/ PMH of HTN, HLD, T2DM, and chronic left lower extremity pain with lumbar radiculopathy with known left L5-S1 foraminal herniated nucleus pulposis s/p lumbar spinal fusion at L5-S1, on chronic narcotics followed by [facility] neurology and Dr. Pritchard. He reports on Oct 22, he started having constant, sharp b/l leg pain (left (7/10 pain) worse than right (3/10 pain)) radiating from his back to his toes. He also was experiencing muscle spasms in his left leg. He took a [place] pill prescribed for breakthrough pain w /o much relief. The next day, Oct.23, his pain continued to worsen. He decided to take his morning meds, which includes morphine and tried an ice pack/ heating pad w/o relief. His legs began to weakne. He started having trouble standing and using his walker around the house. He states that "my legs were giving out." Pain was exacerbated with movement and only alleviated with rest. His pain continued throughout the night and into the morning. He then called 911 and was brought to the ED. Prior to these recent events, he was able to ambulate without difficulty. He denies hx of falls. He denies urinary/bowel problems, saddle anesthesia, fever, SOB, CP, abdominal pain, and N/V. CBC/BMP: 10/30/17 0630 10/30/17 0630 Significant Findings Laboratory Tests Test 10/30/17 06:30 White Blood Count 12.6 TH/MM3 (4.0-11.0) Red Blood Count 4.01 MIL/MM3 (4.50-5.90) Hemoglobin 11.3 GM/DL (13.0-17.0) Hematocrit 33.5 % (39.0-51.0) Neutrophils # (Auto) 8.3 TH/MM3 (1.8-7.7) Blood Urea Nitrogen 27 MG/DL (7-18) Random Glucose 145 MG/DL (74-106) Albumin 3.3 GM/DL (3.4-5.0) Estimat Glomerular Filtration Rate 59 ML/MIN (>89) Hemoglobin A1c 7.7 % (4.3-6.0) Imaging Last Impressions Abdomen/Pelvis CT 10/24/17 3599 Signed Impressions: Service Date/Time: Tuesday, October 24, 2017 14:45 - CONCLUSION: 1. No acute abdominal or pelvic pathology. 2. Bilateral benign-appearing renal cysts. 3. 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 4. Status post cholecystectomy. 5. Nonspecific 7 mm pulmonary nodule the right middle lobe. 6. No evidence of calcified renal stones or hydronephrosis. Ric Dolan MD PE at Discharge GENERAL: lying in bed, NAD SKIN: No rashes, ecchymoses or lesions. Cool and dry. His lower extremities are hairless, with hypertrophic toenails, and hyperpigmentation of both medial lower legs. CARDIOVASCULAR: RRR. Normal S1/S2. No MRG RESPIRATORY: CTAB. No crackles or wheezes. GASTROINTESTINAL: Abdomen soft, non-distended, obese, nontender. No hepato- splenomegaly or palpable masses. MUSCULOSKELETAL: Extremities without clubbing, cyanosis, or edema. Loss of dermal appendages both lower extremities as noted above. NEUROLOGICAL: Awake and alert. Oriented x3. Hospital Course Mr. Acevedo is a 72 year old man w/ PMH of HTN, HLD, T2DM, and chronic left lower extremity pain with lumbar radiculopathy with known left L5-S1 foraminal herniated nucleus pulposus on chronic narcotics. Admitted to observation for further evaluation and treatment due to inability to ambulate secondary to severe sciatic pain. Patient needing PT at rehab, however, patient not a candidate for back surgery due to BMI and DM. Case management assisting with placement given patient not meeting inpatient criteria. Several pain medications given this hospital stay to control pain. Patient started on Prednisone 50mg daily 10/26, Soma, Diclonfenac, Gabapentin (see progress note and orders for all medications). Pain well controlled. Unable to be placed at inpatient rehab, discussed with PT, who recommend home health. Pt discharged in stable condition with home health. Pt Condition on Discharge: Stable Discharge Disposition: Disch w/ Home Health Serv Discharge Instructions DIET: Follow Instructions for: As Tolerated, No Restrictions Activities you can perform: Regular-No Restrictions Follow up Referrals: PCP Follow-up - 1 Week New Medications: Methylprednisolone Dosepak (Medrol Dosepak) 4 Mg Dspk 4 MG PO DIRECTED, #1 DSPK 0 Refills Per Pharmacist direction Carisoprodol (Carisoprodol) 350 Mg Tablet 350 MG PO Q6HR, #[address] (Diclofenac Sodium DR) 50 Mg Tabdr 50 MG PO DAILY, #30 TAB Gabapentin (Neurontin) 400 Mg Cap 800 MG PO TID, #90 CAP Continued Medications: Allopurinol (Allopurinol) 100 Mg Tab 100 MG PO DAILY, #30 Amlodipine (Amlodipine) 5 Mg Tab 5 MG PO DAILY, #30 Ascorbic Acid ER (Vitamin C ER) 500 Mg Sandra 500 MG PO BID for Nutritional Supplement, TAB [address] (Aspirin EC) 81 Mg Tabdr 81 MG PO DAILY, TAB 0 Refills Atorvastatin (Atorvastatin) 10 Mg Tab 10 MG PO HS for Cholesterol Management, #30 TAB 0 Refills Cholecalciferol (Vitamin D3) 5,000 Unit Cap 5000 UNITS PO DAILY for Nutritional Supplement, #30 CAP 0 Refills Cholecalciferol (Vitamin D3) 1,000 Unit Cap 1000 UNITS PO DAILY for Nutritional Supplement, #1 BOTTLE 0 Refills Cyanocobalamin ER (Vitamin B-12 ER) 1,000 Mcg Tab 1000 MCG PO DAILY for Nutritional Supplement, #1 BOTTLE 0 Refills Docusate Sodium (Stool Softener) [address] (Duloxetine [address]) 30 Mg Capdr 30 MG PO DAILY, #60 Fenofibrate (Fenofibrate) 54 Mg Tab 54 MG PO DAILY, #30 TAB 0 Refills Furosemide (Furosemide) 40 Mg Tab 40 MG PO DAILY, #30 Hydrocodone-Acetaminophen (Hydrocodone-Acetaminophen) 10-325 mg Tab 1 TAB PO Q4H PRN for PAIN, TAB 0 Refills Irbesartan (Irbesartan) 150 Mg Tab Levothyroxine (Levothyroxine) 100 Mcg Tab 100 MCG PO DAILY, #90 Magnesium (Magnesium) 400 Mg Tab 400 MG PO DAILY for Nutritional Supplement, TAB 0 Refills Metformin (Metformin) 850 Mg Tab 850 MG PO AC BREAKFAST, #270 Metformin (Metformin) 850 Mg Tab 1700 MG PO HS for Blood Sugar Management, TAB 0 Refills With a meal Morphine ER (Morphine ER) 15 Mg Tab 15 MG PO BID for Pain Management, TAB 0 Refills Nateglinide (Nateglinide) 120 Mg Tab 120 MG PO DAILY, #270 Pioglitazone (Pioglitazone) 30 Mg Tab 30 MG PO DAILY for Blood Sugar Management, #30 TAB 0 Refills Pregabalin (Lyrica) 50 Mg Cap Ranitidine (Ranitidine) 150 Mg Tab 150 MG PO DAILY, #180 Discontinued Medications: Cyclobenzaprine (Flexeril) 10 Mg Tab 10 MG PO TID, #60 Cyclobenzaprine (Flexeril) 10 Mg Tab Gabapentin (Gabapentin) 600 Mg Tab 600 MG PO DAILY, #270 Gabapentin (Gabapentin) 600 Mg Tab 1200 MG PO HS, #30 TAB 0 Refills Lovastatin (Lovastatin) 20 Mg Tab 20 MG PO DAILY for Cholesterol Management, #30 TAB 0 Refills Morphine ER (Morphine ER) 15 Mg Tab 30 MG PO HS, #60 Henrry Kimbrough MD, R2 Nov 01, 2017 13:43
[2017-11-01] MEDS ORDERED: MEDR4PAK PO (13:49)
== END 2017-11-01 16:00 | disposition home or self-care (01) ==
LOC: NEPC 12:21 → NEDA 16:03 → NEPHCDU 18:17
PROVIDERS: ADMIT Family Medicine; ATTEND Family Medicine
DX: M51.16 Intervertebral disc disorders with radiculopathy, lumbar region (principal); R26.2 Difficulty in walking, not elsewhere classified; M48.061 Spinal stenosis, lumbar region without neurogenic claudication; M46.90 Unspecified inflammatory spondylopathy, site unspecified; E11.9 Type 2 diabetes mellitus without complications; I10 Essential (primary) hypertension; E78.5 Hyperlipidemia, unspecified; E66.01 Morbid (severe) obesity due to excess calories; E03.9 Hypothyroidism, unspecified; N17.9 Acute kidney failure, unspecified; R32 Unspecified urinary incontinence; K21.9 Gastro-esophageal reflux disease without esophagitis; N28.1 Cyst of kidney, acquired; Z68.41 Body mass index [BMI] 40.0-44.9, adult; Z79.84 Long term (current) use of oral hypoglycemic drugs; Z79.891 Long term (current) use of opiate analgesic; Z87.891 Personal history of nicotine dependence; Z90.49 Acquired absence of other specified parts of digestive tract; Z98.1 Arthrodesis status
CPT/HCPCS: 74176; 80048; 80053; 82948; 83036; 85025; 96372; 96374; 96376; 97110; 97116; 97162; 97163; 97530; 99285; G0378; G8987; G8988; J1644; J1815; J1885; J2920; J2930; J7030; J7512

== ENCOUNTER 2017-11-01 17:04 | Observation (INO) | payer MEDICARE ==
[~2017-11-01] VITALS: Ht 180.3 cm; Wt 136.5 kg
[~2017-11-01 17:04] MED LIST changes: +ASPI81TA23 PO; +ATOR10TA15 PO; +CARI350T25 PO; +CHOL10008 PO; +DICL50TA3 PO; +DOCU1CAP66; +FENO54TA PO; +MEDR4PAK PO; +NEUR400C PO; +VITA100022 PO
[2017-11-01 17:12] VITALS: BP 122/67; PULSE 81; RESP 20; O2SAT 97
--- NOTE | 2017-11-01 17:47 | PD ---
HPI Chief Complaint: Fall Time Seen by Provider: 17:42 Travel History International Travel<30 days: No Contact w/Intl Traveler<30days: No Traveled to known affect area: No History of Present Illness HPI 72-year-old male just discharged from the hospital this afternoon presents to the ED via ambulance for evaluation of 8/10 left hip and leg pain. Onset after the patient fell while attempting to transfer from his car to the wheelchair after disposition. He has not been ambulatory since the accident. Pain is exacerbated by certain motions. He endorses chronic numbness and tingling down the leg, no worse today. He is unsure of what medications he was administered before leaving the hospital. PFSH Past Medical History Hx Anticoagulant Therapy: Yes Arthritis: No Asthma: No Autoimmune Disease: No Anxiety: No Depression: No Heart Rhythm Problems: No Cancer: No Cardiovascular Problems: Yes High Cholesterol: Yes Chemotherapy: No Chest Pain: No Congestive Heart Failure: No COPD: No Cerebrovascular Accident: No Diabetes: Yes (type 2 ) Patient Takes Glucophage: No Diminished Hearing: No Endocrine: Yes Gastrointestinal Disorders: Yes (ACID REFLUX, OCCAS & CONSTIPATION ) GERD: Yes Genitourinary: No Hepatitis: No Hiatal Hernia: No Hypertension: Yes Immune Disorder: No Kidney Stones: No Medical other: Yes (RECENT FALL ON R KNEE WITH PAIN) Musculoskeletal: Yes (LOSS OF STRENGTH OF LEFT LEG, OA, TORN ROTATOR CUFF RIGHT ) Neurologic: Yes (NEUROPATHY LEFT FOOT) Psychiatric: Yes (DEPRESSION) Reproductive: No Respiratory: Yes (lung nodule ) Migraines: No Radiation Therapy: No Renal Failure: No Seizures: No Sickle Cell Disease: No Sleep Apnea: No Thyroid Disease: Yes Ulcer: No Tetanus Vaccination: < 5 Years Influenza Vaccination: Yes Past Surgical History Abdominal Surgery: Yes (APPENDECTOMY) AICD: No Appendectomy: Yes Arteriovenous Shunt: No Body Medical Devices: PT DENIES ANY IMPLANTS Cardiac Surgery: No Ear Surgery: No Endocrine Surgery: No Eye Surgery: No Genitourinary Surgery: No Gynecologic Surgery: No Insulin Pump: No Joint Replacement: No Neurologic Surgery: Yes (CERVICAL SPINE STIMULATOR AND REMOVAL 1 YR AGO; PLATE THORACIC SPINE 2006?) Oral Surgery: Yes (TONSILLECTOMY ) Pacemaker: No Thoracic Surgery: No Tonsillectomy: Yes Other Surgery: Yes Social History Alcohol Use: No Tobacco Use: No Substance Use: No Allergies-Medications (Allergen,Severity, Reaction): Coded Allergies: coconut (Unverified Allergy, Severe, Hives, 10/24/17) Reported Meds & Prescriptions Reported Meds & Active Scripts Active Medrol Dosepak (Methylprednisolone) 4 Mg Dspk 4 Mg PO DIRECTED Per Pharmacist direction Diclofenac Sodium DR (Diclofenac Sodium) 50 Mg Tabdr 50 Mg PO DAILY Neurontin (Gabapentin) 400 Mg Cap 800 Mg PO TID Carisoprodol 350 Mg Tablet 350 Mg PO Q6HR Reported Fenofibrate 54 Mg Tab 54 Mg PO DAILY Stool Softener (Docusate Sodium) 100 Mg Cap Morphine ER (Morphine Sulfate) 15 Mg Tab 15 Mg PO BID Vitamin B-12 ER (Cyanocobalamin) 1,000 Mcg Tab 1,000 Mcg PO DAILY Vitamin D3 (Cholecalciferol) 1,000 Unit Cap 1,000 Units PO DAILY Aspirin EC (Aspirin) 81 Mg Tabdr 81 Mg PO DAILY Atorvastatin (Atorvastatin Calcium) 10 Mg Tab 10 Mg PO HS Lyrica (Pregabalin) 50 Mg Cap Irbesartan 150 Mg Tab Vitamin C ER (Ascorbic Acid) 500 Mg Sandra 500 Mg PO BID Vitamin D3 (Cholecalciferol) 5,000 Unit Cap 5,000 Units PO DAILY Hydrocodone-Acetaminophen 10-325 mg Tab 1 Tab PO Q4H PRN Metformin (Metformin HCl) 850 Mg Tab 1,700 Mg PO HS With a meal Metformin (Metformin HCl) 850 Mg Tab 850 Mg PO AC BREAKFAST Nateglinide 120 Mg Tab 120 Mg PO DAILY Levothyroxine (Levothyroxine Sodium) 100 Mcg Tab 100 Mcg PO DAILY Amlodipine (Amlodipine Besylate) 5 Mg Tab 5 Mg PO DAILY Furosemide 40 Mg Tab 40 Mg PO DAILY Ranitidine (Ranitidine HCl) 150 Mg Tab 150 Mg PO DAILY Duloxetine DR (Duloxetine HCl) 30 Mg Capdr 30 Mg PO DAILY Allopurinol 100 Mg Tab 100 Mg PO DAILY Pioglitazone (Pioglitazone HCl) 30 Mg Tab 30 Mg PO DAILY Magnesium 400 Mg Tab 400 Mg PO DAILY Review of Systems Except as stated in HPI: all other systems reviewed are Neg Physical Exam Narrative GENERAL: Well-nourished, well-developed obese white male in no acute distress. SKIN: Focused skin assessment warm/dry. HEAD: Normocephalic. EYES: No scleral icterus. No injection or drainage. NECK: Supple, trachea midline. No JVD or lymphadenopathy. CARDIOVASCULAR: Regular rate and rhythm without murmurs, gallops, or rubs. RESPIRATORY: Breath sounds equal bilaterally. No accessory muscle use. GASTROINTESTINAL: Abdomen soft, non-tender, nondistended. MUSCULOSKELETAL: No cyanosis, or edema. FOCUSED LEFT LOWER EXTREMITY EXAM: 2+ DP pulse. Tender to palpation of the anterolateral aspect of the left hip as well as the length of the femur. No shortening or rotation noted. Pain worsens with attempted internal/external rotation. Patient is able to wiggle the toes. BACK: Nontender without obvious deformity. No CVA tenderness. Data Data Last Documented VS Vital Signs Date Time Temp Pulse Resp B/P (MAP) Pulse Ox O2 Delivery O2 Flow Rate FiO2 11/01/17 17:12 81 20 122/67 (85) 97 Orders Orders Femur (Ap & Lat/2vws) (11/01/17 17:48) Hip, Uni(Ap&Lat) W Ap Pelvis (11/01/17 17:48) MDM Medical Decision Making Medical Screen Exam Complete: Yes Emergency Medical Condition: Yes Differential Diagnosis Fracture versus dislocation versus musculoskeletal pain versus other Narrative Course 72-year-old male just discharged from the hospital this afternoon presents to the ED via ambulance for evaluation of 06/24 left hip and leg pain. Onset after the patient fell while attempting to transfer from his car to the wheelchair after disposition. He has not been ambulatory since the accident. Pain is exacerbated by certain motions. He endorses chronic numbness and tingling down the leg, no worse today. He is unsure of what medications he was administered before leaving the hospital. Vitals reviewed. Physical exam reveals an obese white male in no acute distress. He has tenderness to palpation of the anterior lateral aspect of the left hip as well as down the length of the left femur. X-rays of the hip and femur without acute abnormality per radiology read. I reviewed the patient's record. He was discharged with a diagnosis of severe sciatica and inability to ambulate. Apparently he did not meet criteria for placement in a rehabilitation and home health was arranged. As the patient was unable to transfer from his car to wheelchair without injury I don't think he is a safe discharge. I placed a call to the resident's who cared for the patient until discharge today. I spoke with Dr. Crespo who will contact his attending regarding this matter. I discussed this patient and the circumstance with Dr. Weaver. He is in agreement that this is an unsafe discharge. Please see his note for disposition. Thalia Benites Nov 01, 2017 17:47
--- NOTE | 2017-11-01 19:13 | RADRPT ---
EXAM DATE/TIME: 11/01/2017 18:04 [facility] COMPARISON: No previous studies available for comparison. INDICATIONS : Trauma, fall. MEDICAL HISTORY : None. SURGICAL HISTORY : None. ENCOUNTER: Initial ACUITY: 1 day PAIN SCORE: 7/10 LOCATION: Left femur. FINDINGS: Two view examination of the left femur demonstrates no evidence of fracture or dislocation. Bony min eralization is normal. The soft tissue structures are intact. CONCLUSION: No evidence of recent bony injury. William Daly MD on November 01, 2017 at 19:10 Board Certified Radiologist. This report was verified electronically.
--- NOTE | 2017-11-01 19:42 | RADRPT ---
EXAM DATE/TIME: 11/01/2017 18:04 [facility] COMPARISON: No previous studies available for comparison. INDICATIONS : Trauma, fall. MEDICAL HISTORY : None. SURGICAL HISTORY : None. ENCOUNTER: Initial ACUITY: 1 day PAIN SCORE: 7/10 LOCATION: Left femur. FINDINGS: Examination of the left hip was performed with AP Pelvis. The primary and secondary trabecular patte rn of the femoral neck is intact. The hip joint is of normal width without significant sclerosis or bony hypertrophy. The acetabulum is grossly intact. Orthopedic hardware in the posterior elements o f L5 and S1. Multiple calcified phleboliths in the pelvis. CONCLUSION: No evidence of recent bony injury in the proximal femur. William Daly MD on November 01, 2017 at 19:39 Board Certified Radiologist. This report was verified electronically.
[2017-11-01] MEDS ORDERED: KETOROLAC TROMETHAMINE 30 MG/ML (IVP) VIAL IV PUSH ONE (20:30)
[2017-11-01 20:45] VITALS: BP 131/75; PULSE 74; RESP 16; O2SAT 99
[2017-11-01] MEDS ORDERED: KETOROLAC TROMETHAMINE 60 MG/2 ML (IM) VIAL IM ONE (20:45)
[2017-11-01 22:58] VITALS: BP 132/70; PULSE 76; O2SAT 96
[2017-11-02] VITALS (8 sets, daily range): BP systolic 130–167; BP diastolic 63–85; PULSE 78–91; RESP 18–21; TEMP 97.5–98.7; O2SAT 95–98
[2017-11-02] MEDS ORDERED: ACETAMINOPHEN 325 MG TAB PO PRN (02:15)
[2017-11-02] MEDS ORDERED: SODIUM CHLORIDE 0.9% FLUSH 10 ML FLUSH IV FLUSH PRN (02:15)
[2017-11-02] MEDS ORDERED: BISACODYL 10 MG SUPP RECTAL PRN (02:15)
[2017-11-02] MEDS ORDERED: MAGNESIUM HYDROXIDE SUSP 30 ML CUP PO PRN (02:15)
[2017-11-02] MEDS ORDERED: SENNOSIDES 8.6 MG TAB PO PRN (02:15)
[2017-11-02] MEDS ORDERED: NALOXONE HCL 0.4 MG/ML AMP IV PUSH PRN (02:15)
[2017-11-02] MEDS ORDERED: ONDANSETRON HCL 4 MG/2 ML VIAL IVP PRN (02:15)
--- NOTE | 2017-11-02 02:39 | HHI.HP ---
[facility] Service Family Medicine Primary Care Physician Alexus Daniel MD Admission Diagnosis Inability to Ambulate Diagnoses: International Travel<30 Days: No Contact w/Intl Traveler<30days: No Known Affected Area: No History of Present Illness 72 yr old M w/ PMH of HTN, HLD, T2DM, and chronic left lower extremity pain with lumbar radiculopathy with known left L5-S1 foraminal herniated nucleus pulposis s/p lumbar spinal fusion at L5-S1, on chronic narcotics followed by [facility] neurology and Dr. Pritchard. Patient recently discharged today and readmitted due to fall. Patient was getting out of his brother's car when he fell onto the ground. He did not hit his head or have LOC. His brother was unable to pick him up by himself. They proceeded to call the police for assistance. Brought to the [facility] ED. X-rays of hip and femur demonstrated no fractures. He reports that his pain is 5/10, unchanged, radiating from left hip to left knee. He reports that he is getting muscle spasms as well. Denies CP , SOB, abdominal pain, and N/V. Review of Systems Constitutional: DENIES: Fever, Weight loss, Chills Ears, nose, mouth, throat: DENIES: Vertigo Respiratory: DENIES: Shortness of breath Cardiovascular: COMPLAINS OF: Orthopnea, DENIES: Chest pain, Palpitations, Lower Extremity Edema Gastrointestinal: DENIES: Abdominal pain, Nausea, Vomiting Genitourinary: DENIES: Dysuria Musculoskeletal: COMPLAINS OF: Joint pain (left hip radiating to left knee ) Integumentary: DENIES: Rash Hematologic/lymphatic: DENIES: Lymphadenopathy Neurologic: DENIES: Headache Psychiatric: DENIES: Confusion Past Family Social History Past Medical History 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 T2DM HTN HLD Past Surgical History 06/15/16 for elective L5-S1 PLIF (decompressive laminectomy, facetectomy, foraminotomy for decompression and fusion) 3 L knee surgeries Tonsillectomy Appendectomy Allergies: Coded Allergies: coconut (Unverified Allergy, Severe, Hives, 10/24/17) Family History Mom at 94 of Alz's, DM Dad -Heart disease, at 86 from car accident Social History Lives alone in [place] Past smoker, smoked from 13yr old- 59 yr old, 1.5 ppd Occasional drinker Denies illicit drug use Physical Exam Vital Signs Vital Signs Date Time Temp Pulse Resp B/P (MAP) Pulse Ox O2 Delivery O2 Flow Rate FiO2 11/02/17 00:52 98.7 78 18 167/85 (112) 95 11/01/17 22:58 76 132/70 (90) 96 11/01/17 20:45 74 16 131/75 (93) 99 Nasal Cannula 2.00 11/01/17 17:12 81 20 122/67 (85) 97 Physical Exam GENERAL: lying in bed, NAD SKIN: No rashes, ecchymoses or lesions. Cool and dry. His lower extremities are hairless, with hypertrophic toenails, and hyperpigmentation of both medial lower legs. CARDIOVASCULAR: RRR. Normal S1/S2. No MRG RESPIRATORY: CTAB. No crackles or wheezes. GASTROINTESTINAL: Abdomen soft, non-distended, obese, nontender. No hepato- splenomegaly or palpable masses. MUSCULOSKELETAL: Extremities without clubbing, cyanosis, or edema. Loss of dermal appendages both lower extremities as noted above. NEUROLOGICAL: Awake and alert. Oriented x3. Laboratory GENERAL: obese male, lying in bed, NAD SKIN: No rashes, ecchymoses or lesions. Cool and dry. HEAD: Atraumatic. Normocephalic. EYES: PERRLA, EOMI ENT: Throat clear NECK: Trachea midline. No JVD or lymphadenopathy. Supple, nontender, no meningeal signs. CARDIOVASCULAR: RRR, no m/r/g RESPIRATORY: CTAB GASTROINTESTINAL: Abdomen soft, non-tender, nondistended. + BS MUSCULOSKELETAL: Moderate tenderness to palpation in left lower back and left calf, 1+ pitting edema in lower extremities, able to move all toes, strength 5/ 5 b/l legs, sensation intact only to left knee, no sensation in left toes, sensation intact to R ankle. NEUROLOGICAL: Awake and alert. Oriented x 3. Imaging Last Impressions Hip and Pelvis X-Ray 11/01/171747 Signed Impressions: Service Date/Time: Wednesday, November 01, 2017 18:04 - CONCLUSION: No evidence of recent bony injury in the proximal femur. William Daly MD Femur X-Ray 11/01/171747 Signed Impressions: Service Date/Time: Wednesday, November 01, 2017 18:04 - CONCLUSION: No evidence of recent bony injury. William Daly MD [place] VTE Risk Assessment Caprini VTE Risk Assessment: Mod/High Risk (score >= 2) Caprini Risk Assessment Model Point Value = 1 Point Value = 2 Point Value = 3 Point Value = 5 Age 41-60 Minor surgery BMI > 25 kg/m2 Swollen legs Varicose veins or History of unexplained or recurrent spontaneous Oral contraceptives or hormone replacement Sepsis (< 1 month) Serious lung disease, including pneumonia (< 1 month) Abnormal pulmonary function Acute myocardial infarction Congestive heart failure (< 1 month) History of inflammatory bowel disease Medical patient at bed rest Age 61-74 Arthroscopic surgery Major open surgery (> 45 min) Laparoscopic surgery (> 45 min) Malignancy Confined to bed (> 72 hours) Immobilizing plaster cast Central venous access Age >= 75 History of VTE Family history of VTE Factor V Leiden Prothrombin [id number] Lupus anticoagulant Anticardiolipin antibodies Elevated serum homocysteine Heparin-induced thrombocytopenia Other congenital or acquired thrombophilia Stroke (< 1 month) Elective arthroplasty Hip, pelvis, or leg fracture Acute spinal cord injury (< 1 month) Prophylaxis Regimen Total Risk Factor Score Risk Level Prophylaxis Regimen 0-1 Low Early ambulation 2 Moderate Order ONE of the following: *Sequential Compression Device (SCD) *Heparin 5000 units SQ BID 3-4 Higher Order ONE of the following medications: *Heparin 5000 units SQ TID *Enoxaparin/Lovenox 40 mg SQ daily (WT < 150 kg, CrCl > 30 mL/min) *Enoxaparin/Lovenox 30 mg SQ daily (WT < 150 kg, CrCl > 10-29 mL/min) *Enoxaparin/Lovenox 30 mg SQ BID (WT < 150 kg, CrCl > 30 mL/min) AND/OR *Sequential Compression Device (SCD) 5 or more Highest Order ONE of the following medications: *Heparin 5000 units SQ TID (Preferred with Epidurals) *Enoxaparin/Lovenox 40 mg SQ daily (WT < 150 kg, CrCl > 30 mL/min) *Enoxaparin/Lovenox 30 mg SQ daily (WT < 150 kg, CrCl > 10-29 mL/min) *Enoxaparin/Lovenox 30 mg SQ BID (WT < 150 kg, CrCl > 30 mL/min) AND *Sequential Compression Device (SCD) Assessment and Plan Assessment and Plan 72 year old man w/ PMH of HTN, HLD, T2DM, and chronic left lower extremity pain with lumbar radiculopathy with known left L5-S1 foraminal herniated nucleus pulposus on chronic narcotics. Admitted to observation for further evaluation and treatment due to inability to ambulate secondary to severe sciatic pain. Code Status Full Code Discussed Condition With Dr. Crespo Problem List: (1) Lumbar radiculopathy ICD Codes: M54.16 - Lumbar radiculopathy Status: Acute Plan: Hx of chronic left lower extremity pain. s/p laminectomy with spinal fusion. On chronic narcotics followed by [facility] neurology and Dr. Pritchard. MRI spine 09/24/17 showed mild to moderate spinal canal stenosis at L3-4 and L4- 5. Mild spinal canal stenosis at L2-3. S/p lumbar spinal fusion at L5-S1. b/l facet arthritis at multiple levels. Continue medications below: Prednisone 50 mg daily (Started 10/26) Soma 350mg PO q6h Diclofenac 50mg PO daily Gabapentin 800mg PO TID Lyrica 50mg PO daily Morphine 15mg PO BID Narco 10 mg 1 tab PO q4h scheduled Pain management not available to consult (2) Inability to ambulate due to left hip ICD Codes: R26.2 - Difficulty in walking, not elsewhere classified Plan: PT consulted to reevaluate and treat Plan as above (3) DM II (diabetes mellitus, type II), controlled ICD Codes: E11.9 - Type 2 diabetes mellitus without complications Status: Chronic Plan: Continue home medications - Metformin 850 mg po tid - Nateglinide 120 mg po daily - Pioglitazone 30 mg po daily - Low-dose sliding scale insulin (4) Hypertension ICD Codes: I10 - Essential (primary) hypertension Status: Chronic Plan: Continue home antihypertensives: - Amlodipine 5 mg PO daily - Furosemide 40 mg PO daily - Held home Irbesartan (not available), substitute Losartan 50mg PO daily (5) Hypothyroid ICD Codes: E03.9 - Hypothyroidism, unspecified Status: Chronic Plan: - Resume home levothyroxine at 100 g daily (6) Hyperlipemia ICD Codes: E78.5 - Hyperlipidemia, unspecified Status: Chronic Plan: -Atorvastatin 10mg daily HS (7) GERD (gastroesophageal reflux disease) ICD Codes: K21.9 - Gastro-esophageal reflux disease without esophagitis Status: Chronic Plan: Protonix 40 mg PO daily (8) Gout ICD Codes: M10.9 - Gout, unspecified Plan: Continue Allopurinol 100mg PO daily (9) Nutrition, metabolism, and development symptoms ICD Codes: R63.8 - Other symptoms and signs concerning food and fluid intake Plan: Diet: Diabetic diet Fluids: PO Electrolytes: monitor and replace as needed DVT ppx: Heparin 5000 units sq q12h Louisa Briones MD R1 Nov 02, 2017 02:39
[2017-11-02] MEDS: HEPARIN SODIUM - SQ 10,000 UNITS/ML VIAL SQ SCH ×2 (02:40→15:00)
[2017-11-02] MEDS ORDERED: DEXTROSE 50% IN WATER 50 ML VIAL(D50) IV PUSH PRN (02:45)
[2017-11-02] MEDS ORDERED: GLUCAGON 1 MG/ML VIAL OTHER PRN (02:45)
[2017-11-02] MEDS: LEVOTHYROXINE SODIUM 100 MCG TAB PO SCH (06:33)
[2017-11-02] MEDS: CARISOPRODOL 350 MG TAB PO SCH ×4 (06:33→23:49)
[2017-11-02] MEDS: metFORMIN HCL 850 MG TAB PO SCH ×2 (06:43→09:05)
[2017-11-02] MEDS ORDERED: NATEGLINIDE 120 MG PO SCH (08:00)
[2017-11-02] MEDS ORDERED: [UNRECOGNIZED DRUG - OTHER] PO SCH (08:00)
[2017-11-02] MEDS: SODIUM CHLORIDE 0.9% FLUSH 10 ML FLUSH IV FLUSH SCH ×2 (09:00→20:53)
[2017-11-02] MEDS: PIOGLITAZONE HCL 30 MG TAB PO SCH (09:02)
[2017-11-02] MEDS: DOCUSATE SODIUM 50 MG/SENNA 8.6 MG TAB PO SCH ×2 (09:02→20:54)
[2017-11-02] MEDS: FENOFIBRATE 48 MG TAB PO SCH (09:02)
[2017-11-02] MEDS: predniSONE 50 MG TAB PO SCH (09:03)
[2017-11-02] MEDS: MORPHINE SULFATE 15 MG CONTROLLED RELEASE TAB PO SCH ×2 (09:03→20:54)
[2017-11-02] MEDS: DICLOFENAC SODIUM 50 MG DELAYED RELEASE TAB PO SCH (09:04)
[2017-11-02] MEDS: amLODIPine BESYLATE 5 MG TAB PO SCH (09:04)
[2017-11-02] MEDS: GABAPENTIN 400 MG CAP PO SCH ×3 (09:04→17:55)
[2017-11-02] MEDS: MAGNESIUM OXIDE 400 MG TAB PO SCH (09:04)
[2017-11-02] MEDS: PREGABALIN 25 MG CAP PO SCH (09:05)
[2017-11-02] MEDS: ASPIRIN EC 81 MG TABEC PO SCH (09:05)
[2017-11-02] MEDS: LOSARTAN 50 MG TAB PO SCH (09:05)
[2017-11-02] MEDS: FUROSEMIDE 40 MG TAB PO SCH (09:06)
[2017-11-02] MEDS: ALLOPURINOL 100 MG TAB PO SCH (09:06)
[2017-11-02] MEDS: PANTOPRAZOLE SOD 40 MG DELAYED RELEASE TAB PO SCH (09:06)
[2017-11-02] MEDS: DULoxetine HCl DR 30 MG CAP PO SCH (09:06)
[2017-11-02] MEDS: INSULIN ASPART SUPPLEMENTAL SCALE SQ SCH ×4 (09:12→20:53)
--- NOTE | 2017-11-02 14:41 | HHI.FPPN ---
Subjective Remarks Patient seen and examined this morning. Patient was readmitted yesterday after falling after being discharged. He reports today, he is having pain in the left leg, where he fell. Has worsened since he discharge. Denies any new neurological signs, including numbness/tingling. Denies any chest pain, shortness of breath, abdominal pain. Objective Vitals Vital Signs Date Time Temp Pulse Resp B/P (MAP) Pulse Ox O2 Delivery O2 Flow Rate FiO2 11/02/17 11:55 97.5 86 21 141/63 (89) 98 11/02/17 07:34 98.1 86 18 157/83 (107) 98 11/02/17 04:20 98.4 84 18 167/84 (111) 98 11/02/17 03:28 95 11/02/17 00:52 98.7 78 18 167/85 (112) 95 11/01/17 22:58 76 132/70 (90) 96 11/01/17 20:45 74 16 131/75 (93) 99 Nasal Cannula 2.00 11/01/17 17:12 81 20 122/67 (85) 97 Imaging Last Impressions Hip and Pelvis X-Ray 11/01/171747 Signed Impressions: Service Date/Time: Wednesday, November 01, 2017 18:04 - CONCLUSION: No evidence of recent bony injury in the proximal femur. William Daly MD Femur X-Ray 11/01/171747 Signed Impressions: Service Date/Time: Wednesday, November 01, 2017 18:04 - CONCLUSION: No evidence of recent bony injury. William Daly MD Objective Remarks GENERAL: obese male, lying in bed, NAD CARDIOVASCULAR: RRR RESPIRATORY: CTAB GASTROINTESTINAL: Abdomen soft, non-tender, nondistended. + BS MUSCULOSKELETAL: Moderate tenderness to palpation in left thigh and knee. 1+ pitting edema in lower extremities, able to move all toes, Pain with active ROM bilaterally. sensation intact only to left knee, no sensation in left toes, sensation intact to R ankle. NEUROLOGICAL: Awake and alert. Oriented x 3. A/P Assessment and Plan 72 year old man w/ PMH of HTN, HLD, T2DM, and chronic left lower extremity pain with lumbar radiculopathy with known left L5-S1 foraminal herniated nucleus pulposus on chronic narcotics. Admitted to observation for further evaluation and treatment due to inability to ambulate secondary to severe sciatic pain. Discharge Planning Unclear, will need inpatient rehabilitation Problem List: (1) Lumbar radiculopathy ICD Codes: M54.16 - Lumbar radiculopathy Status: Acute Plan: Hx of chronic left lower extremity pain. s/p laminectomy with spinal fusion. On chronic narcotics followed by [facility] neurology and Dr. Pritchard. MRI spine 09/24/17 showed mild to moderate spinal canal stenosis at L3-4 and L4- 5. Mild spinal canal stenosis at L2-3. S/p lumbar spinal fusion at L5-S1. b/l facet arthritis at multiple levels. -Physical therapy to evaluate and treat, will need inpatient rehab on d/c -CM consult Continue medications below: Prednisone 50 mg daily (Started 10/26) Soma 350mg PO q6h Diclofenac 50mg PO daily Gabapentin 800mg PO TID Lyrica 50mg PO daily Morphine 15mg PO BID Narco 10 mg 1 tab PO q4h scheduled Pain management not available to consult (2) Inability to ambulate due to left hip ICD Codes: R26.2 - Difficulty in walking, not elsewhere classified Plan: PT consulted to reevaluate and treat Hip and femur xray negative for acute fracture -Plan as above (3) DM II (diabetes mellitus, type II), controlled ICD Codes: E11.9 - Type 2 diabetes mellitus without complications Status: Chronic Plan: Continue home medications - Metformin 850 mg po tid - Nateglinide 120 mg po daily - Pioglitazone 30 mg po daily - Low-dose sliding scale insulin (4) Hypertension ICD Codes: I10 - Essential (primary) hypertension Status: Chronic Plan: Continue home antihypertensives: - Amlodipine 5 mg PO daily - Furosemide 40 mg PO daily - Held home Irbesartan (not available), substitute Losartan 50mg PO daily (5) Hypothyroid ICD Codes: E03.9 - Hypothyroidism, unspecified Status: Chronic Plan: - Resume home levothyroxine at 100 g daily (6) Hyperlipemia ICD Codes: E78.5 - Hyperlipidemia, unspecified Status: Chronic Plan: -Atorvastatin 10mg daily HS (7) GERD (gastroesophageal reflux disease) ICD Codes: K21.9 - Gastro-esophageal reflux disease without esophagitis Status: Chronic Plan: Protonix 40 mg PO daily (8) Gout ICD Codes: M10.9 - Gout, unspecified Status: Chronic Plan: Continue Allopurinol 100mg PO daily (9) Nutrition, metabolism, and development symptoms ICD Codes: R63.8 - Other symptoms and signs concerning food and fluid intake Plan: Diet: Diabetic diet Fluids: PO Electrolytes: monitor and replace as needed DVT ppx: Heparin 5000 units sq q12h Problem Qualifiers (1) DM II (diabetes mellitus, type II), controlled: Qualified Codes: E11.42 - Type 2 diabetes mellitus with diabetic polyneuropathy (2) Hypertension: Qualified Codes: I10 - Essential (primary) hypertension (3) Hypothyroid: Qualified Codes: E03.9 - Hypothyroidism, unspecified (4) Hyperlipemia: Qualified Codes: E78.00 - Pure hypercholesterolemia, unspecified (5) GERD (gastroesophageal reflux disease): Qualified Codes: K21.9 - Gastro-esophageal reflux disease without esophagitis (6) Gout: Henrry Kimbrough MD, R2 Nov 02, 2017 14:41
[2017-11-02] MEDS: ATORVASTATIN 10 MG TAB PO SCH (20:53)
[2017-11-03 03:57] VITALS: BP 155/72; PULSE 79; RESP 18; TEMP 98.2; O2SAT 96
[2017-11-03] MEDS: HEPARIN SODIUM - SQ 10,000 UNITS/ML VIAL SQ SCH ×2 (04:50→15:38)
[2017-11-03] MEDS: LEVOTHYROXINE SODIUM 100 MCG TAB PO SCH (04:50)
[2017-11-03] MEDS: CARISOPRODOL 350 MG TAB PO SCH ×3 (04:50→18:19)
[2017-11-03 07:47] VITALS: BP 147/81; PULSE 77; RESP 19; TEMP 97.6; O2SAT 97
[2017-11-03] MEDS: GABAPENTIN 400 MG CAP PO SCH ×3 (08:39→18:19)
[2017-11-03] MEDS: DICLOFENAC SODIUM 50 MG DELAYED RELEASE TAB PO SCH (08:40)
[2017-11-03] MEDS: PANTOPRAZOLE SOD 40 MG DELAYED RELEASE TAB PO SCH (08:40)
[2017-11-03] MEDS: predniSONE 50 MG TAB PO SCH (08:40)
[2017-11-03] MEDS: ALLOPURINOL 100 MG TAB PO SCH (08:40)
[2017-11-03] MEDS: FENOFIBRATE 48 MG TAB PO SCH (08:40)
[2017-11-03] MEDS: LOSARTAN 50 MG TAB PO SCH (08:40)
[2017-11-03] MEDS: PIOGLITAZONE HCL 30 MG TAB PO SCH (08:40)
[2017-11-03] MEDS: DOCUSATE SODIUM 50 MG/SENNA 8.6 MG TAB PO SCH ×2 (08:40→21:42)
[2017-11-03] MEDS: metFORMIN HCL 850 MG TAB PO SCH (08:40)
[2017-11-03] MEDS: PREGABALIN 25 MG CAP PO SCH (08:40)
[2017-11-03] MEDS: FUROSEMIDE 40 MG TAB PO SCH (08:40)
[2017-11-03] MEDS: MAGNESIUM OXIDE 400 MG TAB PO SCH (08:40)
[2017-11-03] MEDS: amLODIPine BESYLATE 5 MG TAB PO SCH (08:40)
[2017-11-03] MEDS: ASPIRIN EC 81 MG TABEC PO SCH (08:40)
[2017-11-03] MEDS: DULoxetine HCl DR 30 MG CAP PO SCH (08:40)
[2017-11-03] MEDS: MORPHINE SULFATE 15 MG CONTROLLED RELEASE TAB PO SCH ×2 (08:41→21:42)
[2017-11-03] MEDS: SODIUM CHLORIDE 0.9% FLUSH 10 ML FLUSH IV FLUSH SCH ×2 (08:41→21:42)
[2017-11-03] MEDS: INSULIN ASPART SUPPLEMENTAL SCALE SQ SCH ×4 (08:42→21:43)
--- NOTE | 2017-11-03 09:49 | HHI.FPPN ---
Subjective Remarks Patient seen and examined this more. States he continues to have pain in his left leg, however it is slightly improved today. Continues to work with physical therapy. No nausea, vomiting, fever, chills, abdominal pain, chest pain , change in bowel or bladder habits. No other complaints today. Objective Vitals Vital Signs Date Time Temp Pulse Resp B/P (MAP) Pulse Ox O2 Delivery O2 Flow Rate FiO2 11/03/17 07:47 97.6 77 19 147/81 (103) 97 11/03/17 03:57 98.2 79 18 155/72 (99) 96 11/02/17 23:54 98.0 80 18 140/76 (97) 95 11/02/17 20:01 91 141/81 (101) 96 11/02/17 15:56 97.7 81 18 130/71 (90) 96 11/02/17 11:55 97.5 86 21 141/63 (89) 98 I/O 11/02/17 11/02/17 11/02/17 11/03/17 11/03/17 11/03/17 07:00 15:00 23:00 07:00 15:00 23:00 Intake Total 625 ml 240 ml Balance 625 ml 240 ml Intake Oral 625 ml 240 ml # Voids 3 Objective Remarks GENERAL: obese male, lying in bed, NAD CARDIOVASCULAR: RRR RESPIRATORY: CTAB GASTROINTESTINAL: Abdomen soft, non-tender, nondistended. + BS MUSCULOSKELETAL: Moderate tenderness to palpation in left thigh and knee. 1+ pitting edema in lower extremities, able to move all toes, Pain with active and passive ROM bilaterally. sensation intact only to left knee, no sensation in left toes, sensation intact to R ankle. NEUROLOGICAL: Awake and alert. Oriented x 3. A/P Assessment and Plan 72 year old man w/ PMH of HTN, HLD, T2DM, and chronic left lower extremity pain with lumbar radiculopathy with known left L5-S1 foraminal herniated nucleus pulposus on chronic narcotics. Admitted to observation for further evaluation and treatment due to inability to ambulate secondary to severe sciatic pain. Discharge Planning Unclear, will need inpatient rehabilitation Problem List: (1) Lumbar radiculopathy ICD Codes: M54.16 - Lumbar radiculopathy Status: Acute Plan: Hx of chronic left lower extremity pain. s/p laminectomy with spinal fusion. On chronic narcotics followed by [facility] neurology and Dr. Pritchard. MRI spine 09/24/17 showed mild to moderate spinal canal stenosis at L3-4 and L4- 5. Mild spinal canal stenosis at L2-3. S/p lumbar spinal fusion at L5-S1. b/l facet arthritis at multiple levels. 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 ICD Codes: R26.2 - Difficulty in walking, not elsewhere classified Plan: PT consulted to reevaluate and treat Hip and femur xray negative for acute fracture -Plan as above (3) DM II (diabetes mellitus, type II), controlled ICD Codes: E11.9 - Type 2 diabetes mellitus without complications Status: Chronic Plan: Continue home medications - Metformin 850 mg po tid - Nateglinide 120 mg po daily - Pioglitazone 30 mg po daily - Low-dose sliding scale insulin (4) Hypertension ICD Codes: I10 - Essential (primary) hypertension Status: Chronic Plan: Continue home antihypertensives: - Amlodipine 5 mg PO daily - Furosemide 40 mg PO daily - Held home Irbesartan (not available), substitute Losartan 50mg PO daily (5) Hypothyroid ICD Codes: E03.9 - Hypothyroidism, unspecified Status: Chronic Plan: - Resume home levothyroxine at 100 g daily (6) Hyperlipemia ICD Codes: E78.5 - Hyperlipidemia, unspecified Status: Chronic Plan: -Atorvastatin 10mg daily HS (7) GERD (gastroesophageal reflux disease) ICD Codes: K21.9 - Gastro-esophageal reflux disease without esophagitis Status: Chronic Plan: Protonix 40 mg PO daily (8) Gout ICD Codes: M10.9 - Gout, unspecified Status: Chronic Plan: Continue Allopurinol 100mg PO daily (9) Nutrition, metabolism, and development symptoms ICD Codes: R63.8 - Other symptoms and signs concerning food and fluid intake Plan: Diet: Diabetic diet Fluids: PO Electrolytes: monitor and replace as needed DVT ppx: Heparin 5000 units sq q12h Problem Qualifiers (1) DM II (diabetes mellitus, type II), controlled: Qualified Codes: E11.42 - Type 2 diabetes mellitus with diabetic polyneuropathy (2) Hypertension: Qualified Codes: I10 - Essential (primary) hypertension (3) Hypothyroid: Qualified Codes: E03.9 - Hypothyroidism, unspecified (4) Hyperlipemia: Qualified Codes: E78.00 - Pure hypercholesterolemia, unspecified (5) GERD (gastroesophageal reflux disease): Qualified Codes: K21.9 - Gastro-esophageal reflux disease without esophagitis (6) Gout: Karthikeyan Rodriguez MD R1 Nov 03, 2017 09:49
[2017-11-03 10:22] LABS: HEMATOCRIT 37.2 % (39.0-51.0); MEAN CELL VOLUME 85.5 FL (80.0-100.0); MEAN CORPUSCULAR HEMOGLOBIN 28.1 PG (27.0-34.0); MEAN CORPUSCULAR HGB CONC 32.9 % (32.0-36.0); PLATELET COUNT 296 TH/MM3 (150-450); RED BLOOD COUNT 4.35 MIL/MM3 (4.50-5.90); REVIEW FLAG FINAL; WHITE BLOOD COUNT 11.7 TH/MM3 (4.0-11.0)
[2017-11-03 10:54] LABS: ANION GAP 7 MEQ/L (5-15); AST (GOT) 21 U/L (15-37); BICARBONATE 30.7 MEQ/L (21.0-32.0); BLOOD UREA NITROGEN 41 MG/DL (7-18); CHLORIDE 100 MEQ/L (98-107); GLOMERULAR FILTRATION RATE 45 ML/MIN (>89); POTASSIUM 4.6 MEQ/L (3.5-5.1); SODIUM (NA) 138 MEQ/L (136-145)
[2017-11-03 10:55] LABS: ALT (GPT) 35 U/L (12-78)
[2017-11-03 10:59] LABS: ALKALINE PHOSPHATASE 89 U/L (45-117); TOTAL BILIRUBIN ADULT 0.5 MG/DL (0.2-1.0)
[2017-11-03 11:37] VITALS: BP 152/73; PULSE 77; RESP 18; TEMP 97.5; O2SAT 95
[2017-11-03] MEDS: ACETAMINOPHEN/HYDROcodone 325 MG/10 MG TAB PO PRN (15:37)
[2017-11-03 15:55] VITALS: BP 142/83; PULSE 91; RESP 12; TEMP 96.4; O2SAT 95
[2017-11-03 20:03] VITALS: BP 134/78; PULSE 78; RESP 16; TEMP 97.7; O2SAT 98
[2017-11-03] MEDS: ATORVASTATIN 10 MG TAB PO SCH (21:42)
[2017-11-04 00:05] VITALS: BP 146/79; PULSE 70; RESP 16; TEMP 98.1; O2SAT 93
[2017-11-04] MEDS: CARISOPRODOL 350 MG TAB PO SCH ×4 (02:11→18:26)
[2017-11-04] MEDS: HEPARIN SODIUM - SQ 10,000 UNITS/ML VIAL SQ SCH ×2 (02:11→16:24)
[2017-11-04 04:15] VITALS: BP 134/79; PULSE 70; RESP 16; TEMP 97.8; O2SAT 97
[2017-11-04] MEDS: LEVOTHYROXINE SODIUM 100 MCG TAB PO SCH (05:15)
[2017-11-04 08:20] VITALS: BP 178/92; PULSE 77; RESP 12; TEMP 95.8; O2SAT 95
[2017-11-04] MEDS: DICLOFENAC SODIUM 50 MG DELAYED RELEASE TAB PO SCH (09:05)
[2017-11-04] MEDS: GABAPENTIN 400 MG CAP PO SCH ×3 (09:05→18:26)
[2017-11-04] MEDS: INSULIN ASPART SUPPLEMENTAL SCALE SQ SCH ×4 (09:05→20:50)
[2017-11-04] MEDS: LOSARTAN 50 MG TAB PO SCH (09:06)
[2017-11-04] MEDS: DOCUSATE SODIUM 50 MG/SENNA 8.6 MG TAB PO SCH ×2 (09:06→20:51)
[2017-11-04] MEDS: ASPIRIN EC 81 MG TABEC PO SCH (09:06)
[2017-11-04] MEDS: MORPHINE SULFATE 15 MG CONTROLLED RELEASE TAB PO SCH ×2 (09:06→20:51)
[2017-11-04] MEDS: PREGABALIN 25 MG CAP PO SCH (09:06)
[2017-11-04] MEDS: predniSONE 50 MG TAB PO SCH (09:07)
[2017-11-04] MEDS: DULoxetine HCl DR 30 MG CAP PO SCH (09:07)
[2017-11-04] MEDS: amLODIPine BESYLATE 5 MG TAB PO SCH (09:07)
[2017-11-04] MEDS: PANTOPRAZOLE SOD 40 MG DELAYED RELEASE TAB PO SCH (09:07)
[2017-11-04] MEDS: FUROSEMIDE 40 MG TAB PO SCH (09:07)
[2017-11-04] MEDS: ALLOPURINOL 100 MG TAB PO SCH (09:07)
[2017-11-04] MEDS: PIOGLITAZONE HCL 30 MG TAB PO SCH (09:07)
[2017-11-04] MEDS: FENOFIBRATE 48 MG TAB PO SCH (09:07)
[2017-11-04] MEDS: metFORMIN HCL 850 MG TAB PO SCH (09:13)
[2017-11-04] MEDS: SODIUM CHLORIDE 0.9% FLUSH 10 ML FLUSH IV FLUSH SCH ×2 (09:13→19:19)
--- NOTE | 2017-11-04 09:28 | HHI.FPPN ---
Subjective Remarks Patient seen and examined this morning. No acute events overnight. Denies any new complaints/concerns this morning. States the pain is stable. Working with PT. Working with his daughter about being accepted into a facility. Denies any chest pain, SOB, abdominal pain. No fever/chills, n/v, diarrhea/constipation. Objective Vitals Vital Signs Date Time Temp Pulse Resp B/P (MAP) Pulse Ox O2 Delivery O2 Flow Rate FiO2 11/04/17 08:20 95.8 77 12 178/92 (120) 95 11/04/17 04:15 97.8 70 16 134/79 (97) 97 11/04/17 00:05 98.1 70 16 146/79 (101) 93 11/03/17 20:03 97.7 78 16 134/78 (96) 98 11/03/17 15:55 96.4 91 12 142/83 (102) 95 11/03/17 11:37 97.5 77 18 152/73 (99) 95 I/O 11/03/17 11/03/17 11/03/17 11/04/17 11/04/17 11/04/17 07:00 15:00 23:00 07:00 15:00 23:00 Intake Total 240 ml Balance 240 ml Intake Oral 240 ml Result Diagram: 11/03/17 1002 11/03/17 1002 Objective Remarks GENERAL: obese male, lying in bed, NAD CARDIOVASCULAR: RRR RESPIRATORY: CTAB, no wheezes, rales GASTROINTESTINAL: Abdomen soft, non-tender, nondistended. + BS MUSCULOSKELETAL: Moderate tenderness to palpation in left thigh and knee. 1+ pitting edema in lower extremities, able to move all toes, Pain with active and passive ROM bilaterally. sensation intact only to left knee, no sensation in left toes, sensation intact to R ankle. NEUROLOGICAL: Awake and alert. Oriented x 3. A/P Assessment and Plan 72 year old man w/ PMH of HTN, HLD, T2DM, and chronic left lower extremity pain with lumbar radiculopathy with known left L5-S1 foraminal herniated nucleus pulposus on chronic narcotics. Admitted to observation for further evaluation and treatment due to inability to ambulate secondary to severe sciatic pain. Discharge Planning Pending acceptance to rehab facility. Problem List: (1) Lumbar radiculopathy ICD Codes: M54.16 - Lumbar radiculopathy Status: Acute Plan: Hx of chronic left lower extremity pain. s/p laminectomy with spinal fusion. On chronic narcotics followed by [facility] neurology and Dr. Pritchard. MRI spine 09/24/17 showed mild to moderate spinal canal stenosis at L3-4 and L4- 5. Mild spinal canal stenosis at L2-3. S/p lumbar spinal fusion at L5-S1. b/l facet arthritis at multiple levels. 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 ICD Codes: R26.2 - Difficulty in walking, not elsewhere classified Status: Chronic Plan: PT consulted to reevaluate and treat Hip and femur xray negative for acute fracture -Plan as above (3) DM II (diabetes mellitus, type II), controlled ICD Codes: E11.9 - Type 2 diabetes mellitus without complications Status: Chronic Plan: Continue home medications - Metformin 850 mg po tid - Nateglinide 120 mg po daily - Pioglitazone 30 mg po daily - Low-dose sliding scale insulin (4) Hypertension ICD Codes: I10 - Essential (primary) hypertension Status: Chronic Plan: Continue home antihypertensives: - Amlodipine 5 mg PO daily - Furosemide 40 mg PO daily - Held home Irbesartan (not available), substitute Losartan 50mg PO daily (5) Hypothyroid ICD Codes: E03.9 - Hypothyroidism, unspecified Status: Chronic Plan: - Resume home levothyroxine at 100 g daily (6) Hyperlipemia ICD Codes: E78.5 - Hyperlipidemia, unspecified Status: Chronic Plan: -Atorvastatin 10mg daily HS (7) GERD (gastroesophageal reflux disease) ICD Codes: K21.9 - Gastro-esophageal reflux disease without esophagitis Status: Chronic Plan: Protonix 40 mg PO daily (8) Gout ICD Codes: M10.9 - Gout, unspecified Status: Chronic Plan: Continue Allopurinol 100mg PO daily (9) Nutrition, metabolism, and development symptoms ICD Codes: R63.8 - Other symptoms and signs concerning food and fluid intake Plan: Diet: Diabetic diet Fluids: PO Electrolytes: monitor and replace as needed DVT ppx: Heparin 5000 units sq q12h Problem Qualifiers (1) DM II (diabetes mellitus, type II), controlled: Qualified Codes: E11.42 - Type 2 diabetes mellitus with diabetic polyneuropathy (2) Hypertension: Qualified Codes: I10 - Essential (primary) hypertension (3) Hypothyroid: Qualified Codes: E03.9 - Hypothyroidism, unspecified (4) Hyperlipemia: Qualified Codes: E78.00 - Pure hypercholesterolemia, unspecified (5) GERD (gastroesophageal reflux disease): Qualified Codes: K21.9 - Gastro-esophageal reflux disease without esophagitis (6) Gout: Henrry Kimbrough MD, R2 Nov 04, 2017 09:28
[2017-11-04] MEDS: MAGNESIUM OXIDE 400 MG TAB PO SCH (11:32)
[2017-11-04 13:16] VITALS: BP 135/65; PULSE 77; RESP 15; TEMP 96.5; O2SAT 92
--- NOTE | 2017-11-04 13:41 | HHI.DCPOC ---
Discharge Care Plan Diagnosis: (1) Inability to ambulate due to left hip (2) Lumbar radiculopathy Goals to Promote Your Health * To prevent worsening of your condition and complications * To maintain your health at the optimal level Directions to Meet Your Goals Take your medications as prescribed Follow your dietary instruction Follow activity as directed Keep your appointments as scheduled Take your immunizations and boosters as scheduled If your symptoms worsen call your PCP, if no PCP go to Urgent Care Center or Emergency Room Smoking is Dangerous to Your Health. Avoid second hand smoke Call the 24-hour hour crisis hotline for domestic abuse at Karthikeyan Rodriguez MD R1 Nov 04, 2017 13:41
--- NOTE | 2017-11-04 13:41 | HHI.FF ---
Face to Face Verification Diagnosis: (1) Lumbar radiculopathy (2) Inability to ambulate due to left hip Physical Therapy Order: Evaluate and Treat, Improve ambulation, Strength and gait training I have seen patient Soy Acevedo on 11/04/17. My clinical findings support the need for the requested home health care services because: Ltd mobility - disease progression Deconditioned w/ increased weakness High risk of falls I certify that my clinical findings support that this patient is homebound because: Unsteady gait/balance Karthikeyan Rodriguez MD R1 Nov 04, 2017 13:41
--- NOTE | 2017-11-04 13:42 | HHI.DS ---
Discharge Summary Admission Date Nov 01, 2017 at 22:18 Admitting Diagnosis Inability to Ambulate (1) Lumbar radiculopathy Diagnosis: Principal Plan: Hx of chronic left lower extremity pain. s/p laminectomy with spinal fusion. On chronic narcotics followed by [facility] neurology and Dr. Pritchard. MRI spine 09/24/17 showed mild to moderate spinal canal stenosis at L3-4 and L4- 5. Mild spinal canal stenosis at L2-3. S/p lumbar spinal fusion at L5-S1. b/l facet arthritis at multiple levels. -Physical therapy to treat, will need inpatient rehab on d/c at this time -CM consult, unable to qualify for inpatient rehabilitation at this time, continue to work with case management Continue medications below: Prednisone 50 mg daily (Started 10/26) Soma 350mg PO q6h Diclofenac 50mg PO daily Gabapentin 800mg PO TID Lyrica 50mg PO daily Morphine 15mg PO BID Narco 10 mg 1 tab PO q4h scheduled Pain management not available to consult ICD Codes: M54.16 - Lumbar radiculopathy Status: Acute (2) Inability to ambulate due to left hip Diagnosis: Principal Plan: PT consulted to reevaluate and treat Hip and femur xray negative for acute fracture -Plan as above ICD Codes: R26.2 - Difficulty in walking, not elsewhere classified Status: Chronic (3) DM II (diabetes mellitus, type II), controlled Diagnosis: Secondary Plan: Continue home medications - Metformin 850 mg po tid - Nateglinide 120 mg po daily - Pioglitazone 30 mg po daily - Low-dose sliding scale insulin ICD Codes: E11.9 - Type 2 diabetes mellitus without complications Status: Chronic (4) Hypertension Diagnosis: Secondary Plan: Continue home antihypertensives: - Amlodipine 5 mg PO daily - Furosemide 40 mg PO daily - Held home Irbesartan (not available), substitute Losartan 50mg PO daily ICD Codes: I10 - Essential (primary) hypertension Status: Chronic (5) Hypothyroid Diagnosis: Secondary Plan: - Resume home levothyroxine at 100 g daily ICD Codes: E03.9 - Hypothyroidism, unspecified Status: Chronic (6) Hyperlipemia Diagnosis: Secondary Plan: -Atorvastatin 10mg daily HS ICD Codes: E78.5 - Hyperlipidemia, unspecified Status: Chronic (7) GERD (gastroesophageal reflux disease) Diagnosis: Secondary Plan: Protonix 40 mg PO daily ICD Codes: K21.9 - Gastro-esophageal reflux disease without esophagitis Status: Chronic (8) Gout Diagnosis: Secondary Plan: Continue Allopurinol 100mg PO daily ICD Codes: M10.9 - Gout, unspecified Status: Chronic (9) Nutrition, metabolism, and development symptoms Plan: Diet: Diabetic diet Fluids: PO Electrolytes: monitor and replace as needed DVT ppx: Heparin 5000 units sq q12h ICD Codes: R63.8 - Other symptoms and signs concerning food and fluid intake Brief History 72 yr old M w/ PMH of HTN, HLD, T2DM, and chronic left lower extremity pain with lumbar radiculopathy with known left L5-S1 foraminal herniated nucleus pulposis s/p lumbar spinal fusion at L5-S1, on chronic narcotics followed by [facility] neurology and Dr. Pritchard. Patient recently discharged today and readmitted due to fall. Patient was getting out of his brother's car when he fell onto the ground. He did not hit his head or have LOC. His brother was unable to pick him up by himself. They proceeded to call the police for assistance. Brought to the [facility]. X-rays of hip and femur demonstrated no fractures. He reports that his pain is 5/10, unchanged, radiating from left hip to left knee. He reports that he is getting muscle spasms as well. Denies CP , SOB, abdominal pain, and N/V. CBC/BMP: 11/03/17 1002 11/03/17 1002 Significant Findings Laboratory Tests Test 11/03/17 10:02 White Blood Count 11.7 TH/MM3 (4.0-11.0) Red Blood Count 4.35 MIL/MM3 (4.50-5.90) Hemoglobin 12.2 GM/DL (13.0-17.0) Hematocrit 37.2 % (39.0-51.0) Blood Urea Nitrogen 41 MG/DL (7-18) Creatinine 1.52 MG/DL (0.60-1.30) Random Glucose 158 MG/DL (74-106) Albumin 3.3 GM/DL (3.4-5.0) Estimat Glomerular Filtration Rate 45 ML/MIN (>89) PE at Discharge GENERAL: obese male, lying in bed, NAD CARDIOVASCULAR: RRR RESPIRATORY: CTAB, no wheezes, rales GASTROINTESTINAL: Abdomen soft, non-tender, nondistended. + BS MUSCULOSKELETAL: Moderate tenderness to palpation in left thigh and knee. 1+ pitting edema in lower extremities, able to move all toes, Pain with active and passive ROM bilaterally. sensation intact only to left knee, no sensation in left toes, sensation intact to R ankle. NEUROLOGICAL: Awake and alert. Oriented x 3. Hospital Course Patient was readmitted on 11/02 for Inability to ambulate. He had been discharged the day prior to home with home health for the same problem. He had fallen on his left side prior to entering his home. He was seen at [facility], demonstrated no acute processes/sammie injury on x-ray, and transferred to [facility]. He remained stable while in the hospital. Physical therapy recommended PT at a rehab facility. Patient was discharged to an assisted living facility. Pt Condition on Discharge: Stable Discharge Disposition: ACLF/RETIREMENT Discharge Instructions DIET: Follow Instructions for: As Tolerated, No Restrictions Activities you can perform: Regular-No Restrictions (Ambulate with assistance) Follow up Referrals: PCP Follow-up - 1 Week Continued Medications: Allopurinol (Allopurinol) 100 Mg Tab 100 MG PO DAILY, #30 Amlodipine (Amlodipine) 5 Mg Tab 5 MG PO DAILY, #30 Ascorbic Acid ER (Vitamin C ER) 500 Mg Sandra 500 MG PO BID for Nutritional Supplement, TAB [address] (Aspirin EC) 81 Mg Tabdr 81 MG PO DAILY, TAB 0 Refills Atorvastatin (Atorvastatin) 10 Mg Tab 10 MG PO HS for Cholesterol Management, #30 TAB 0 Refills Carisoprodol (Carisoprodol) 350 Mg Tablet 350 MG PO Q6HR, #60 Cholecalciferol (Vitamin D3) 5,000 Unit Cap 5000 UNITS PO DAILY for Nutritional Supplement, #30 CAP 0 Refills Cholecalciferol (Vitamin D3) 1,000 Unit Cap 1000 UNITS PO DAILY for Nutritional Supplement, #1 BOTTLE 0 Refills Cyanocobalamin ER (Vitamin B-12 ER) 1,000 Mcg Tab 1000 MCG PO DAILY for Nutritional Supplement, #1 BOTTLE [address] (Diclofenac Sodium DR) 50 Mg Tabdr 50 MG PO DAILY, #30 TAB Docusate Sodium (Stool Softener) [address] (Duloxetine [address]) 30 Mg Capdr 30 MG PO DAILY, #60 Fenofibrate (Fenofibrate) 54 Mg Tab 54 MG PO DAILY, #30 TAB 0 Refills Furosemide (Furosemide) 40 Mg Tab 40 MG PO DAILY, #30 Gabapentin (Neurontin) 400 Mg Cap 800 MG PO TID, #90 CAP Hydrocodone-Acetaminophen (Hydrocodone-Acetaminophen) 10-325 mg Tab 1 TAB PO Q4H PRN for PAIN, #30 TAB 0 Refills (This prescription has been renewed ) Irbesartan (Irbesartan) 150 Mg Tab Levothyroxine (Levothyroxine) 100 Mcg Tab 100 MCG PO DAILY, #90 Magnesium (Magnesium) 400 Mg Tab 400 MG PO DAILY for Nutritional Supplement, TAB 0 Refills Metformin (Metformin) 850 Mg Tab 850 MG PO AC BREAKFAST, #270 Metformin (Metformin) 850 Mg Tab 1700 MG PO HS for Blood Sugar Management, TAB 0 Refills With a meal Methylprednisolone Dosepak (Medrol Dosepak) 4 Mg Dspk 4 MG PO DIRECTED, #1 DSPK 0 Refills Per Pharmacist direction Morphine ER (Morphine ER) 15 Mg Tab 15 MG PO BID for Pain Management, #30 TAB 0 Refills (This prescription has been renewed) Nateglinide (Nateglinide) 120 Mg Tab 120 MG PO DAILY, #270 Pioglitazone (Pioglitazone) 30 Mg Tab 30 MG PO DAILY for Blood Sugar Management, #30 TAB 0 Refills Pregabalin (Lyrica) 50 Mg Cap Ranitidine (Ranitidine) 150 Mg Tab 150 MG PO DAILY, #180 Additional Information Will not be reaccepting to [facility]. Discussed with Dr. Harrell. Karthikeyan Rodriguez MD R1 Nov 04, 2017 13:42
[2017-11-04] MEDS ORDERED: WHEEMIS3 ×2 (14:28→14:34)
[2017-11-04] MEDS ORDERED: HOSP BED1 (14:32)
[2017-11-04] MEDS ORDERED: HYDR-3583 PO (14:35)
[2017-11-04 16:13] VITALS: BP 157/76; PULSE 87; RESP 12; TEMP 96.2; O2SAT 96
[2017-11-04 20:19] VITALS: BP 138/71; PULSE 83; RESP 16; TEMP 98.2; O2SAT 95
[2017-11-04] MEDS: ATORVASTATIN 10 MG TAB PO SCH (20:50)
[2017-11-05 00:07] VITALS: BP 139/84; PULSE 80; RESP 16; TEMP 98.1; O2SAT 98
[2017-11-05] MEDS: HEPARIN SODIUM - SQ 10,000 UNITS/ML VIAL SQ SCH ×2 (02:08→17:32)
[2017-11-05] MEDS: CARISOPRODOL 350 MG TAB PO SCH ×4 (02:08→17:32)
[2017-11-05 05:09] VITALS: BP 141/75; PULSE 75; RESP 16; TEMP 97.9; O2SAT 97
[2017-11-05] MEDS: LEVOTHYROXINE SODIUM 100 MCG TAB PO SCH (06:05)
[2017-11-05 07:46] VITALS: BP 157/90; PULSE 72; RESP 20; TEMP 98.1; O2SAT 96
[2017-11-05] MEDS: DOCUSATE SODIUM 50 MG/SENNA 8.6 MG TAB PO SCH ×2 (08:30→23:18)
[2017-11-05] MEDS: ASPIRIN EC 81 MG TABEC PO SCH (08:30)
[2017-11-05] MEDS: FUROSEMIDE 40 MG TAB PO SCH (08:30)
[2017-11-05] MEDS: GABAPENTIN 400 MG CAP PO SCH ×3 (08:30→17:32)
[2017-11-05] MEDS: PREGABALIN 25 MG CAP PO SCH (08:30)
[2017-11-05] MEDS: predniSONE 50 MG TAB PO SCH (08:31)
[2017-11-05] MEDS: FENOFIBRATE 48 MG TAB PO SCH (08:31)
[2017-11-05] MEDS: amLODIPine BESYLATE 5 MG TAB PO SCH (08:31)
[2017-11-05] MEDS: PIOGLITAZONE HCL 30 MG TAB PO SCH (08:31)
[2017-11-05] MEDS: MORPHINE SULFATE 15 MG CONTROLLED RELEASE TAB PO SCH ×2 (08:31→23:18)
[2017-11-05] MEDS: LOSARTAN 50 MG TAB PO SCH (08:31)
[2017-11-05] MEDS: DULoxetine HCl DR 30 MG CAP PO SCH (08:31)
[2017-11-05] MEDS: metFORMIN HCL 850 MG TAB PO SCH (08:31)
[2017-11-05] MEDS: ALLOPURINOL 100 MG TAB PO SCH (08:32)
[2017-11-05] MEDS: DICLOFENAC SODIUM 50 MG DELAYED RELEASE TAB PO SCH (08:32)
[2017-11-05] MEDS: PANTOPRAZOLE SOD 40 MG DELAYED RELEASE TAB PO SCH (08:32)
[2017-11-05] MEDS: SODIUM CHLORIDE 0.9% FLUSH 10 ML FLUSH IV FLUSH SCH ×2 (08:40→21:00)
[2017-11-05] MEDS: INSULIN ASPART SUPPLEMENTAL SCALE SQ SCH ×4 (08:40→23:18)
--- NOTE | 2017-11-05 09:59 | HHI.FPPN ---
Subjective Remarks Patient seen and examined this more. States he continues to have pain in his left leg, however it is slightly improved today. Continues to work with physical therapy. No nausea, vomiting, fever, chills, abdominal pain, chest pain , change in bowel or bladder habits. No other complaints today. Eager to go home. Objective Vitals Vital Signs Date Time Temp Pulse Resp B/P (MAP) Pulse Ox O2 Delivery O2 Flow Rate FiO2 11/05/17 07:46 98.1 72 20 157/90 (112) 96 11/05/17 05:09 97.9 75 16 141/75 (97) 97 11/05/17 00:07 98.1 80 16 139/84 (102) 98 11/04/17 20:19 98.2 83 16 138/71 (93) 95 11/04/17 16:13 96.2 87 12 157/76 (103) 96 11/04/17 13:16 96.5 77 15 135/65 (88) 92 11/04/17 10:06 18 11/04/17 10:06 18 I/O 11/04/17 11/04/17 11/04/17 11/05/17 11/05/17 11/05/17 07:00 15:00 23:00 07:00 15:00 23:00 # Voids 2 # Bowel Movements 0 Result Diagram: 11/03/17 1002 11/03/17 1002 Objective Remarks GENERAL: obese male, lying in bed, NAD CARDIOVASCULAR: RRR RESPIRATORY: CTAB, no wheezes, rales GASTROINTESTINAL: Abdomen soft, non-tender, nondistended. + BS MUSCULOSKELETAL: Moderate tenderness to palpation in left thigh and knee. 1+ pitting edema in lower extremities, able to move all toes, Pain with active and passive ROM bilaterally. sensation intact only to left knee, no sensation in left toes, sensation intact to R ankle. NEUROLOGICAL: Awake and alert. Oriented x 3. A/P Assessment and Plan 72 year old man w/ PMH of HTN, HLD, T2DM, and chronic left lower extremity pain with lumbar radiculopathy with known left L5-S1 foraminal herniated nucleus pulposus on chronic narcotics. Admitted to observation for further evaluation and treatment due to inability to ambulate secondary to severe sciatic pain. Discharge Planning Pending acceptance to rehab facility. Problem List: (1) Lumbar radiculopathy ICD Codes: M54.16 - Lumbar radiculopathy Status: Acute Plan: Hx of chronic left lower extremity pain. s/p laminectomy with spinal fusion. On chronic narcotics followed by [facility] neurology and Dr. Pritchard. MRI spine 09/24/17 showed mild to moderate spinal canal stenosis at L3-4 and L4- 5. Mild spinal canal stenosis at L2-3. S/p lumbar spinal fusion at L5-S1. b/l facet arthritis at multiple levels. 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 ICD Codes: R26.2 - Difficulty in walking, not elsewhere classified Status: Chronic Plan: PT consulted to reevaluate and treat Hip and femur xray negative for acute fracture -Plan as above (3) DM II (diabetes mellitus, type II), controlled ICD Codes: E11.9 - Type 2 diabetes mellitus without complications Status: Chronic Plan: Continue home medications - Metformin 850 mg po tid - Nateglinide 120 mg po daily - Pioglitazone 30 mg po daily - Low-dose sliding scale insulin (4) Hypertension ICD Codes: I10 - Essential (primary) hypertension Status: Chronic Plan: Continue home antihypertensives: - Amlodipine 5 mg PO daily - Furosemide 40 mg PO daily - Held home Irbesartan (not available), substitute Losartan 50mg PO daily (5) Hypothyroid ICD Codes: E03.9 - Hypothyroidism, unspecified Status: Chronic Plan: - Resume home levothyroxine at 100 g daily (6) Hyperlipemia ICD Codes: E78.5 - Hyperlipidemia, unspecified Status: Chronic Plan: -Atorvastatin 10mg daily HS (7) GERD (gastroesophageal reflux disease) ICD Codes: K21.9 - Gastro-esophageal reflux disease without esophagitis Status: Chronic Plan: Protonix 40 mg PO daily (8) Gout ICD Codes: M10.9 - Gout, unspecified Status: Chronic Plan: Continue Allopurinol 100mg PO daily (9) Nutrition, metabolism, and development symptoms ICD Codes: R63.8 - Other symptoms and signs concerning food and fluid intake Plan: Diet: Diabetic diet Fluids: PO Electrolytes: monitor and replace as needed DVT ppx: Heparin 5000 units sq q12h Problem Qualifiers (1) DM II (diabetes mellitus, type II), controlled: Qualified Codes: E11.42 - Type 2 diabetes mellitus with diabetic polyneuropathy (2) Hypertension: Qualified Codes: I10 - Essential (primary) hypertension (3) Hypothyroid: Qualified Codes: E03.9 - Hypothyroidism, unspecified (4) Hyperlipemia: Qualified Codes: E78.00 - Pure hypercholesterolemia, unspecified (5) GERD (gastroesophageal reflux disease): Qualified Codes: K21.9 - Gastro-esophageal reflux disease without esophagitis (6) Gout: Karthikeyan Rodriguez MD R1 Nov 05, 2017 09:59
[2017-11-05 16:41] VITALS: BP 136/97; PULSE 100; RESP 20; TEMP 98.4; O2SAT 98
[2017-11-05] MEDS: MAGNESIUM OXIDE 400 MG TAB PO SCH (17:35)
[2017-11-05 19:34] VITALS: BP 132/65; PULSE 81; RESP 18; TEMP 98; O2SAT 98
[2017-11-05 23:05] VITALS: BP 139/77; PULSE 75; RESP 18; TEMP 98.4; O2SAT 98
[2017-11-05] MEDS: ATORVASTATIN 10 MG TAB PO SCH (23:19)
[2017-11-06] MEDS: CARISOPRODOL 350 MG TAB PO SCH ×4 (01:17→17:52)
[2017-11-06] MEDS: HEPARIN SODIUM - SQ 10,000 UNITS/ML VIAL SQ SCH ×2 (04:00→15:03)
[2017-11-06 04:17] VITALS: BP 137/85; PULSE 79; RESP 18; TEMP 97.9; O2SAT 97
[2017-11-06] MEDS: LEVOTHYROXINE SODIUM 100 MCG TAB PO SCH (06:37)
[2017-11-06 07:39] VITALS: BP 137/82; PULSE 82; RESP 20; TEMP 97.4; O2SAT 94
[2017-11-06] MEDS: PIOGLITAZONE HCL 30 MG TAB PO SCH (08:25)
[2017-11-06] MEDS: DICLOFENAC SODIUM 50 MG DELAYED RELEASE TAB PO SCH (08:25)
[2017-11-06] MEDS: PREGABALIN 25 MG CAP PO SCH (08:25)
[2017-11-06] MEDS: DOCUSATE SODIUM 50 MG/SENNA 8.6 MG TAB PO SCH ×2 (08:25→20:45)
[2017-11-06] MEDS: FUROSEMIDE 40 MG TAB PO SCH (08:26)
[2017-11-06] MEDS: MAGNESIUM OXIDE 400 MG TAB PO SCH (08:26)
[2017-11-06] MEDS: amLODIPine BESYLATE 5 MG TAB PO SCH (08:26)
[2017-11-06] MEDS: ASPIRIN EC 81 MG TABEC PO SCH (08:26)
[2017-11-06] MEDS: PANTOPRAZOLE SOD 40 MG DELAYED RELEASE TAB PO SCH (08:26)
[2017-11-06] MEDS: LOSARTAN 50 MG TAB PO SCH (08:26)
[2017-11-06] MEDS: DULoxetine HCl DR 30 MG CAP PO SCH (08:26)
[2017-11-06] MEDS: FENOFIBRATE 48 MG TAB PO SCH (08:27)
[2017-11-06] MEDS: ALLOPURINOL 100 MG TAB PO SCH (08:27)
[2017-11-06] MEDS: metFORMIN HCL 850 MG TAB PO SCH (08:27)
[2017-11-06] MEDS: MORPHINE SULFATE 15 MG CONTROLLED RELEASE TAB PO SCH ×2 (08:27→20:47)
[2017-11-06] MEDS: predniSONE 50 MG TAB PO SCH (08:27)
[2017-11-06] MEDS: GABAPENTIN 400 MG CAP PO SCH ×3 (08:27→17:52)
[2017-11-06] MEDS: INSULIN ASPART SUPPLEMENTAL SCALE SQ SCH ×4 (08:28→20:45)
[2017-11-06] MEDS: SODIUM CHLORIDE 0.9% FLUSH 10 ML FLUSH IV FLUSH SCH ×2 (08:28→20:43)
--- NOTE | 2017-11-06 11:26 | HHI.FPPN ---
Subjective Remarks Patient seen and examined this more. States he continues to have pain in his left leg, similar to how it was yesterday. Has not been able to work with physical therapy for the past day. No nausea, vomiting, fever, chills, abdominal pain, chest pain, change in bowel or bladder habits. No other complaints today. Eager to go home. Objective Vitals Vital Signs Date Time Temp Pulse Resp B/P (MAP) Pulse Ox O2 Delivery O2 Flow Rate FiO2 11/06/17 07:39 97.4 82 20 137/82 (100) 94 11/06/17 04:17 97.9 79 18 137/85 (102) 97 11/05/17 23:05 98.4 75 18 139/77 (97) 98 11/05/17 19:34 98.0 81 18 132/65 (87) 98 11/05/17 16:41 98.4 100 20 136/97 (110) 98 I/O 11/05/17 11/05/17 11/05/17 11/06/17 11/06/17 11/06/17 07:00 15:00 23:00 07:00 15:00 23:00 # Voids 1 Result Diagram: 11/03/17 1002 11/03/17 1002 Objective Remarks GENERAL: obese male, lying in bed, NAD CARDIOVASCULAR: RRR RESPIRATORY: CTAB, no wheezes, rales GASTROINTESTINAL: Abdomen soft, non-tender, nondistended. + BS MUSCULOSKELETAL: Moderate tenderness to palpation in left thigh and knee. 1+ pitting edema in lower extremities, able to move all toes, Pain with active and passive ROM bilaterally. sensation intact only to left knee, no sensation in left toes, sensation intact to R ankle. NEUROLOGICAL: Awake and alert. Oriented x 3. A/P Assessment and Plan 72 year old man w/ PMH of HTN, HLD, T2DM, and chronic left lower extremity pain with lumbar radiculopathy with known left L5-S1 foraminal herniated nucleus pulposus on chronic narcotics. Admitted to observation for further evaluation and treatment due to inability to ambulate secondary to severe sciatic pain. Discharge Planning Was accepted to rehabilitation facility which recently rescinded its offer. Case management currently working on new placement. Problem List: (1) Lumbar radiculopathy ICD Codes: M54.16 - Lumbar radiculopathy Status: Acute Plan: Hx of chronic left lower extremity pain. s/p laminectomy with spinal fusion. On chronic narcotics followed by [facility] neurology and Dr. Pritchard. MRI spine 09/24/17 showed mild to moderate spinal canal stenosis at L3-4 and L4- 5. Mild spinal canal stenosis at L2-3. S/p lumbar spinal fusion at L5-S1. b/l facet arthritis at multiple levels. 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 ICD Codes: R26.2 - Difficulty in walking, not elsewhere classified Status: Chronic Plan: PT consulted to reevaluate and treat Hip and femur xray negative for acute fracture -Plan as above (3) DM II (diabetes mellitus, type II), controlled ICD Codes: E11.9 - Type 2 diabetes mellitus without complications Status: Chronic Plan: Continue home medications - Metformin 850 mg po tid - Nateglinide 120 mg po daily - Pioglitazone 30 mg po daily - Low-dose sliding scale insulin (4) Hypertension ICD Codes: I10 - Essential (primary) hypertension Status: Chronic Plan: Continue home antihypertensives: - Amlodipine 5 mg PO daily - Furosemide 40 mg PO daily - Held home Irbesartan (not available), substitute Losartan 50mg PO daily (5) Hypothyroid ICD Codes: E03.9 - Hypothyroidism, unspecified Status: Chronic Plan: - Resume home levothyroxine at 100 g daily (6) Hyperlipemia ICD Codes: E78.5 - Hyperlipidemia, unspecified Status: Chronic Plan: -Atorvastatin 10mg daily HS (7) GERD (gastroesophageal reflux disease) ICD Codes: K21.9 - Gastro-esophageal reflux disease without esophagitis Status: Chronic Plan: Protonix 40 mg PO daily (8) Gout ICD Codes: M10.9 - Gout, unspecified Status: Chronic Plan: Continue Allopurinol 100mg PO daily (9) Nutrition, metabolism, and development symptoms ICD Codes: R63.8 - Other symptoms and signs concerning food and fluid intake Plan: Diet: Diabetic diet Fluids: PO Electrolytes: monitor and replace as needed DVT ppx: Heparin 5000 units sq q12h Problem Qualifiers (1) DM II (diabetes mellitus, type II), controlled: Qualified Codes: E11.42 - Type 2 diabetes mellitus with diabetic polyneuropathy (2) Hypertension: Qualified Codes: I10 - Essential (primary) hypertension (3) Hypothyroid: Qualified Codes: E03.9 - Hypothyroidism, unspecified (4) Hyperlipemia: Qualified Codes: E78.00 - Pure hypercholesterolemia, unspecified (5) GERD (gastroesophageal reflux disease): Qualified Codes: K21.9 - Gastro-esophageal reflux disease without esophagitis (6) Gout: Karthikeyan Rodriguez MD R1 Nov 06, 2017 11:26
[2017-11-06 11:32] VITALS: BP 121/70; PULSE 72; RESP 20; TEMP 97.4; O2SAT 94
[2017-11-06] MEDS: LACTULOSE SYRUP 20 GM/30 ML CUP PO PRN (13:06)
[2017-11-06 15:52] VITALS: BP 105/62; PULSE 83; RESP 18; TEMP 97.8; O2SAT 95
[2017-11-06 20:12] VITALS: BP 113/64; PULSE 82; RESP 18; TEMP 97.6; O2SAT 97
[2017-11-06] MEDS: ATORVASTATIN 10 MG TAB PO SCH (20:44)
[2017-11-06 23:15] VITALS: BP 147/69; PULSE 62; RESP 16; TEMP 97.5; O2SAT 100
[2017-11-07] MEDS: CARISOPRODOL 350 MG TAB PO SCH ×4 (01:33→17:04)
[2017-11-07] MEDS: HEPARIN SODIUM - SQ 10,000 UNITS/ML VIAL SQ SCH ×2 (01:33→14:24)
[2017-11-07 04:08] VITALS: BP 154/67; PULSE 70; RESP 16; TEMP 97.8; O2SAT 98
[2017-11-07] MEDS: LEVOTHYROXINE SODIUM 100 MCG TAB PO SCH (06:22)
[2017-11-07] MEDS: DICLOFENAC SODIUM 50 MG DELAYED RELEASE TAB PO SCH (08:55)
[2017-11-07] MEDS: predniSONE 50 MG TAB PO SCH (08:55)
[2017-11-07] MEDS: LOSARTAN 50 MG TAB PO SCH (08:55)
[2017-11-07] MEDS: PANTOPRAZOLE SOD 40 MG DELAYED RELEASE TAB PO SCH (08:55)
[2017-11-07] MEDS: ASPIRIN EC 81 MG TABEC PO SCH (08:55)
[2017-11-07] MEDS: INSULIN ASPART SUPPLEMENTAL SCALE SQ SCH ×4 (08:55→22:32)
[2017-11-07] MEDS: metFORMIN HCL 850 MG TAB PO SCH (08:55)
[2017-11-07 08:56] VITALS: BP 141/78; PULSE 78; RESP 20; TEMP 98.2; O2SAT 96
[2017-11-07] MEDS: PREGABALIN 25 MG CAP PO SCH (08:56)
[2017-11-07] MEDS: GABAPENTIN 400 MG CAP PO SCH ×3 (08:56→17:04)
[2017-11-07] MEDS: DOCUSATE SODIUM 50 MG/SENNA 8.6 MG TAB PO SCH ×2 (08:56→20:40)
[2017-11-07] MEDS: FENOFIBRATE 48 MG TAB PO SCH (08:57)
[2017-11-07] MEDS: amLODIPine BESYLATE 5 MG TAB PO SCH (08:57)
[2017-11-07] MEDS: DULoxetine HCl DR 30 MG CAP PO SCH (08:57)
[2017-11-07] MEDS: MAGNESIUM OXIDE 400 MG TAB PO SCH (08:57)
[2017-11-07] MEDS: ALLOPURINOL 100 MG TAB PO SCH (08:57)
[2017-11-07] MEDS: PIOGLITAZONE HCL 30 MG TAB PO SCH (08:58)
[2017-11-07] MEDS: SODIUM CHLORIDE 0.9% FLUSH 10 ML FLUSH IV FLUSH SCH ×2 (08:58→20:41)
[2017-11-07] MEDS: FUROSEMIDE 40 MG TAB PO SCH (08:58)
[2017-11-07] MEDS: MORPHINE SULFATE 15 MG CONTROLLED RELEASE TAB PO SCH ×2 (08:59→20:41)
--- NOTE | 2017-11-07 10:31 | HHI.FPPN ---
Subjective Remarks Patient seen and examined this morning. No acute events overnight. He reports they're unable to set up transportation and the bed yesterday. Reports that he was told he probably won't be able to go until 11/09. Objective Vitals Vital Signs Date Time Temp Pulse Resp B/P (MAP) Pulse Ox O2 Delivery O2 Flow Rate FiO2 11/07/17 08:56 98.2 78 20 141/78 (99) 96 11/07/17 04:08 97.8 70 16 154/67 (96) 98 11/06/17 23:15 97.5 62 16 147/69 (95) 100 11/06/17 20:12 97.6 82 18 113/64 (80) 97 11/06/17 15:52 97.8 83 18 105/62 (76) 95 11/06/17 11:32 97.4 72 20 121/70 (87) 94 I/O 11/06/17 11/06/17 11/06/17 11/07/17 11/07/17 11/07/17 07:00 15:00 23:00 07:00 15:00 23:00 Intake Total 750 ml Balance 750 ml Intake Oral 750 ml # Voids 1 Result Diagram: 11/03/17 1002 11/03/17 1002 Objective Remarks GENERAL: obese male, lying in bed, NAD CARDIOVASCULAR: RRR RESPIRATORY: CTAB, no wheezes, rales GASTROINTESTINAL: Abdomen soft, non-tender, nondistended. + BS MUSCULOSKELETAL: Moderate tenderness to palpation in left thigh and knee. 1+ pitting edema in lower extremities, able to move all toes, Pain with active and passive ROM bilaterally. sensation intact only to left knee, no sensation in left toes, sensation intact to R ankle. NEUROLOGICAL: Awake and alert. Oriented x 3. A/P Assessment and Plan 72 year old man w/ PMH of HTN, HLD, T2DM, and chronic left lower extremity pain with lumbar radiculopathy with known left L5-S1 foraminal herniated nucleus pulposus on chronic narcotics. Admitted to observation for further evaluation and treatment due to inability to ambulate secondary to severe sciatic pain. Discharge Planning Accepted to facility. Working on setting up hospital bed/large wheelchair Problem List: (1) Lumbar radiculopathy ICD Codes: M54.16 - Lumbar radiculopathy Status: Acute Plan: Hx of chronic left lower extremity pain. s/p laminectomy with spinal fusion. On chronic narcotics followed by [facility] neurology and Dr. Pricthard. MRI spine 09/24/17 showed mild to moderate spinal canal stenosis at L3-4 and L4- 5. Mild spinal canal stenosis at L2-3. S/p lumbar spinal fusion at L5-S1. b/l facet arthritis at multiple levels. 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 ICD Codes: R26.2 - Difficulty in walking, not elsewhere classified Status: Chronic Plan: PT consulted to reevaluate and treat Hip and femur xray negative for acute fracture -Plan as above (3) DM II (diabetes mellitus, type II), controlled ICD Codes: E11.9 - Type 2 diabetes mellitus without complications Status: Chronic Plan: Continue home medications - Metformin 850 mg po tid - Nateglinide 120 mg po daily - Pioglitazone 30 mg po daily - Low-dose sliding scale insulin (4) Hypertension ICD Codes: I10 - Essential (primary) hypertension Status: Chronic Plan: Continue home antihypertensives: - Amlodipine 5 mg PO daily - Furosemide 40 mg PO daily - Held home Irbesartan (not available), substitute Losartan 50mg PO daily (5) Hypothyroid ICD Codes: E03.9 - Hypothyroidism, unspecified Status: Chronic Plan: - Resume home levothyroxine at 100 g daily (6) Hyperlipemia ICD Codes: E78.5 - Hyperlipidemia, unspecified Status: Chronic Plan: -Atorvastatin 10mg daily HS (7) GERD (gastroesophageal reflux disease) ICD Codes: K21.9 - Gastro-esophageal reflux disease without esophagitis Status: Chronic Plan: Protonix 40 mg PO daily (8) Gout ICD Codes: M10.9 - Gout, unspecified Status: Chronic Plan: Continue Allopurinol 100mg PO daily (9) Nutrition, metabolism, and development symptoms ICD Codes: R63.8 - Other symptoms and signs concerning food and fluid intake Plan: Diet: Diabetic diet Fluids: PO Electrolytes: monitor and replace as needed DVT ppx: Heparin 5000 units sq q12h Problem Qualifiers (1) DM II (diabetes mellitus, type II), controlled: Qualified Codes: E11.42 - Type 2 diabetes mellitus with diabetic polyneuropathy (2) Hypertension: Qualified Codes: I10 - Essential (primary) hypertension (3) Hypothyroid: Qualified Codes: E03.9 - Hypothyroidism, unspecified (4) Hyperlipemia: Qualified Codes: E78.00 - Pure hypercholesterolemia, unspecified (5) GERD (gastroesophageal reflux disease): Qualified Codes: K21.9 - Gastro-esophageal reflux disease without esophagitis (6) Gout: Henrry Kimbrough MD, R2 Nov 07, 2017 10:31
[2017-11-07 14:32] VITALS: BP 121/67; PULSE 80; RESP 18; TEMP 97.9; O2SAT 96
[2017-11-07 17:42] VITALS: BP 122/68; PULSE 68; RESP 20; TEMP 97.9; O2SAT 96
[2017-11-07 19:59] VITALS: BP 139/88; PULSE 73; RESP 16; TEMP 97.6; O2SAT 98
[2017-11-07] MEDS: ATORVASTATIN 10 MG TAB PO SCH (20:41)
[2017-11-07 23:59] VITALS: BP 103/56; PULSE 90; RESP 16; TEMP 98; O2SAT 99
[2017-11-08] MEDS: LACTULOSE SYRUP 20 GM/30 ML CUP PO PRN (00:17)
[2017-11-08] MEDS: CARISOPRODOL 350 MG TAB PO SCH ×4 (00:17→18:16)
[2017-11-08] MEDS: HEPARIN SODIUM - SQ 10,000 UNITS/ML VIAL SQ SCH ×2 (02:52→15:47)
[2017-11-08 04:10] VITALS: BP 146/104; PULSE 97; RESP 18; TEMP 97.8; O2SAT 96
[2017-11-08] MEDS: LEVOTHYROXINE SODIUM 100 MCG TAB PO SCH (05:48)
[2017-11-08] MEDS: INSULIN ASPART SUPPLEMENTAL SCALE SQ SCH ×4 (08:00→20:59)
[2017-11-08 08:55] VITALS: BP 145/71; PULSE 78; RESP 22; TEMP 98.2; O2SAT 95
[2017-11-08] MEDS: ALLOPURINOL 100 MG TAB PO SCH (09:00)
[2017-11-08] MEDS: SODIUM CHLORIDE 0.9% FLUSH 10 ML FLUSH IV FLUSH SCH ×2 (09:00→21:00)
[2017-11-08] MEDS: PREGABALIN 25 MG CAP PO SCH (10:23)
[2017-11-08] MEDS: FENOFIBRATE 48 MG TAB PO SCH (10:24)
[2017-11-08] MEDS: DICLOFENAC SODIUM 50 MG DELAYED RELEASE TAB PO SCH (10:24)
[2017-11-08] MEDS: ASPIRIN EC 81 MG TABEC PO SCH (10:25)
[2017-11-08] MEDS: MAGNESIUM OXIDE 400 MG TAB PO SCH (10:25)
[2017-11-08] MEDS: PANTOPRAZOLE SOD 40 MG DELAYED RELEASE TAB PO SCH (10:25)
[2017-11-08] MEDS: DULoxetine HCl DR 30 MG CAP PO SCH (10:25)
[2017-11-08] MEDS: GABAPENTIN 400 MG CAP PO SCH ×3 (10:26→18:16)
[2017-11-08] MEDS: amLODIPine BESYLATE 5 MG TAB PO SCH (10:26)
[2017-11-08] MEDS: DOCUSATE SODIUM 50 MG/SENNA 8.6 MG TAB PO SCH ×2 (10:26→20:59)
[2017-11-08] MEDS: LOSARTAN 50 MG TAB PO SCH (10:26)
[2017-11-08] MEDS: FUROSEMIDE 40 MG TAB PO SCH (10:28)
[2017-11-08] MEDS: predniSONE 50 MG TAB PO SCH (10:29)
[2017-11-08] MEDS: PIOGLITAZONE HCL 30 MG TAB PO SCH (10:29)
[2017-11-08] MEDS: metFORMIN HCL 850 MG TAB PO SCH (10:29)
[2017-11-08] MEDS: MORPHINE SULFATE 15 MG CONTROLLED RELEASE TAB PO SCH ×2 (10:30→21:00)
--- NOTE | 2017-11-08 10:35 | HHI.FPPN ---
Subjective Remarks Patient seen and examined this more. States he continues to have pain in his left leg, similar to how it was yesterday. Dates he has not been able to work with physical therapy for the past few days. No nausea, vomiting, fever, chills , abdominal pain, chest pain, change in bowel or bladder habits. Patient states he's been feeling a low bit down over the past few months because his passed in July. He notes that Zheng is especially hard because Christ[place] was her favorite holiday and this is his first Zheng without her. No homicidal or suicidal ideation. Otherwise is trying to use his 's recent passing as motivation to go home. No other complaints today. Eager to go home. Objective Vitals Vital Signs Date Time Temp Pulse Resp B/P (MAP) Pulse Ox O2 Delivery O2 Flow Rate FiO2 11/08/17 08:55 98.2 78 22 145/71 (95) 95 11/08/17 04:10 97.8 97 18 146/104 (118) 96 11/07/17 23:59 98.0 90 16 103/56 (72) 99 11/07/17 19:59 97.6 73 16 139/88 (105) 98 11/07/17 17:42 97.9 68 20 122/68 (86) 96 11/07/17 14:32 97.9 80 18 121/67 (85) 96 I/O 11/07/17 11/07/17 11/07/17 11/08/17 11/08/17 11/08/17 07:00 15:00 23:00 07:00 15:00 23:00 Intake Total 750 ml 500 ml Balance 750 ml 500 ml Intake Oral 750 ml 500 ml # Voids 1 Objective Remarks GENERAL: obese male, lying in bed, NAD CARDIOVASCULAR: RRR RESPIRATORY: CTAB, no wheezes, rales GASTROINTESTINAL: Abdomen soft, non-tender, nondistended. + BS MUSCULOSKELETAL: Moderate tenderness to palpation in left thigh and knee. 1+ pitting edema in lower extremities, able to move all toes, Pain with active and passive ROM bilaterally. sensation intact only to left knee, no sensation in left toes, sensation intact to R ankle. NEUROLOGICAL: Awake and alert. Oriented x 3. A/P Assessment and Plan 72 year old man w/ PMH of HTN, HLD, T2DM, and chronic left lower extremity pain with lumbar radiculopathy with known left L5-S1 foraminal herniated nucleus pulposus on chronic narcotics. Admitted to observation for further evaluation and treatment due to inability to ambulate secondary to severe sciatic pain. Discharge Planning Accepted to facility. Working on setting up hospital bed/large wheelchair Problem List: (1) Lumbar radiculopathy ICD Codes: M54.16 - Lumbar radiculopathy Status: Acute Plan: Hx of chronic left lower extremity pain. s/p laminectomy with spinal fusion. On chronic narcotics followed by [facility] neurology and Dr. Pritchard. MRI spine 09/24/17 showed mild to moderate spinal canal stenosis at L3-4 and L4- 5. Mild spinal canal stenosis at L2-3. S/p lumbar spinal fusion at L5-S1. b/l facet arthritis at multiple levels. 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 ICD Codes: R26.2 - Difficulty in walking, not elsewhere classified Status: Chronic Plan: PT consulted to reevaluate and treat Hip and femur xray negative for acute fracture -Plan as above (3) DM II (diabetes mellitus, type II), controlled ICD Codes: E11.9 - Type 2 diabetes mellitus without complications Status: Chronic Plan: Continue home medications - Metformin 850 mg po tid - Nateglinide 120 mg po daily - Pioglitazone 30 mg po daily - Low-dose sliding scale insulin (4) Hypertension ICD Codes: I10 - Essential (primary) hypertension Status: Chronic Plan: Continue home antihypertensives: - Amlodipine 5 mg PO daily - Furosemide 40 mg PO daily - Held home Irbesartan (not available), substitute Losartan 50mg PO daily (5) Hypothyroid ICD Codes: E03.9 - Hypothyroidism, unspecified Status: Chronic Plan: - Resume home levothyroxine at 100 g daily (6) Hyperlipemia ICD Codes: E78.5 - Hyperlipidemia, unspecified Status: Chronic Plan: -Atorvastatin 10mg daily HS (7) GERD (gastroesophageal reflux disease) ICD Codes: K21.9 - Gastro-esophageal reflux disease without esophagitis Status: Chronic Plan: Protonix 40 mg PO daily (8) Gout ICD Codes: M10.9 - Gout, unspecified Status: Chronic Plan: Continue Allopurinol 100mg PO daily (9) Nutrition, metabolism, and development symptoms ICD Codes: R63.8 - Other symptoms and signs concerning food and fluid intake Plan: Diet: Diabetic diet Fluids: PO Electrolytes: monitor and replace as needed DVT ppx: Heparin 5000 units sq q12h Problem Qualifiers (1) DM II (diabetes mellitus, type II), controlled: Qualified Codes: E11.42 - Type 2 diabetes mellitus with diabetic polyneuropathy (2) Hypertension: Qualified Codes: I10 - Essential (primary) hypertension (3) Hypothyroid: Qualified Codes: E03.9 - Hypothyroidism, unspecified (4) Hyperlipemia: Qualified Codes: E78.00 - Pure hypercholesterolemia, unspecified (5) GERD (gastroesophageal reflux disease): Qualified Codes: K21.9 - Gastro-esophageal reflux disease without esophagitis (6) Gout: Karthikeyan Rodriguez MD R1 Nov 08, 2017 10:35
[2017-11-08 12:25] VITALS: BP 135/87; PULSE 86; RESP 26; TEMP 99; O2SAT 97
[2017-11-08] MEDS: ACETAMINOPHEN/HYDROcodone 325 MG/10 MG TAB PO PRN (13:46)
[2017-11-08 16:08] VITALS: BP 160/100; PULSE 79; RESP 24; TEMP 98.3; O2SAT 95
[2017-11-08 19:53] VITALS: BP 144/68; PULSE 88; RESP 19; TEMP 97.6; O2SAT 95
[2017-11-08] MEDS: ATORVASTATIN 10 MG TAB PO SCH (20:59)
[2017-11-09] VITALS (8 sets, daily range): BP systolic 95–161; BP diastolic 53–84; PULSE 73–96; RESP 12–20; TEMP 95.8–98.6; O2SAT 95–98
[2017-11-09] MEDS: CARISOPRODOL 350 MG TAB PO SCH ×4 (00:09→19:28)
[2017-11-09] MEDS: HEPARIN SODIUM - SQ 10,000 UNITS/ML VIAL SQ SCH ×2 (03:00→14:54)
[2017-11-09] MEDS: LEVOTHYROXINE SODIUM 100 MCG TAB PO SCH (06:14)
[2017-11-09] MEDS: DICLOFENAC SODIUM 50 MG DELAYED RELEASE TAB PO SCH (08:53)
[2017-11-09] MEDS: PANTOPRAZOLE SOD 40 MG DELAYED RELEASE TAB PO SCH (08:53)
[2017-11-09] MEDS: ALLOPURINOL 100 MG TAB PO SCH (08:54)
[2017-11-09] MEDS: PREGABALIN 25 MG CAP PO SCH (08:54)
[2017-11-09] MEDS: FUROSEMIDE 40 MG TAB PO SCH (08:54)
[2017-11-09] MEDS: DULoxetine HCl DR 30 MG CAP PO SCH (08:55)
[2017-11-09] MEDS: predniSONE 50 MG TAB PO SCH (08:55)
[2017-11-09] MEDS: GABAPENTIN 400 MG CAP PO SCH ×3 (08:55→19:28)
[2017-11-09] MEDS: amLODIPine BESYLATE 5 MG TAB PO SCH (08:56)
[2017-11-09] MEDS: DOCUSATE SODIUM 50 MG/SENNA 8.6 MG TAB PO SCH ×2 (08:56→22:29)
[2017-11-09] MEDS: MORPHINE SULFATE 15 MG CONTROLLED RELEASE TAB PO SCH ×2 (08:56→22:29)
[2017-11-09] MEDS: MAGNESIUM OXIDE 400 MG TAB PO SCH (08:56)
[2017-11-09] MEDS: LOSARTAN 50 MG TAB PO SCH (08:57)
[2017-11-09] MEDS: metFORMIN HCL 850 MG TAB PO SCH (08:57)
[2017-11-09] MEDS: ASPIRIN EC 81 MG TABEC PO SCH (08:59)
[2017-11-09] MEDS: SODIUM CHLORIDE 0.9% FLUSH 10 ML FLUSH IV FLUSH SCH ×2 (09:00→21:00)
[2017-11-09] MEDS: INSULIN ASPART SUPPLEMENTAL SCALE SQ SCH ×4 (09:00→22:30)
[2017-11-09] MEDS: PIOGLITAZONE HCL 30 MG TAB PO SCH (09:00)
[2017-11-09] MEDS: FENOFIBRATE 48 MG TAB PO SCH (09:01)
--- NOTE | 2017-11-09 09:50 | HHI.FPPN ---
Subjective Remarks Patient seen and examined this more. States he continues to have pain in his left leg, similar to how it was yesterday. States he has not been able to work with physical therapy for the past few days. No nausea, vomiting, fever, chills , abdominal pain, chest pain, change in bowel or bladder habits. No other complaints today. Eager to go home. Objective Vitals Vital Signs Date Time Temp Pulse Resp B/P (MAP) Pulse Ox O2 Delivery O2 Flow Rate FiO2 11/09/17 07:23 95.8 73 12 146/66 (92) 96 11/09/17 06:07 89 138/84 (102) 11/09/17 05:57 86 16 127/84 (98) 98 11/09/17 04:15 98.1 87 18 95/53 (67) 95 11/09/17 01:09 18 11/09/17 00:49 98.2 83 20 136/69 (91) 97 11/08/17 22:00 18 11/08/17 19:53 97.6 88 19 144/68 (93) 95 11/08/17 16:08 98.3 79 24 160/100 (120) 95 11/08/17 12:25 99.0 86 26 135/87 (103) 97 I/O 11/08/17 11/08/17 11/08/17 11/09/17 11/09/17 11/09/17 07:00 15:00 23:00 07:00 15:00 23:00 Intake Total 500 ml 320 ml Balance 500 ml 320 ml Intake Oral 500 ml 320 ml # Voids 1 3 # Bowel Movements 0 Objective Remarks GENERAL: obese male, lying in bed, NAD CARDIOVASCULAR: RRR RESPIRATORY: CTAB, no wheezes, rales GASTROINTESTINAL: Abdomen soft, non-tender, nondistended. + BS MUSCULOSKELETAL: Moderate tenderness to palpation in left thigh and knee. 1+ pitting edema in lower extremities, able to move all toes, Pain with active and passive ROM bilaterally. sensation intact only to left knee, no sensation in left toes, sensation intact to R ankle. NEUROLOGICAL: Awake and alert. Oriented x 3. A/P Assessment and Plan 72 year old man w/ PMH of HTN, HLD, T2DM, and chronic left lower extremity pain with lumbar radiculopathy with known left L5-S1 foraminal herniated nucleus pulposus on chronic narcotics. Admitted to observation for further evaluation and treatment due to inability to ambulate secondary to severe sciatic pain. Discharge Planning Accepted to facility. Working on setting up hospital bed/large wheelchair Problem List: (1) Lumbar radiculopathy ICD Codes: M54.16 - Lumbar radiculopathy Status: Acute Plan: Hx of chronic left lower extremity pain. s/p laminectomy with spinal fusion. On chronic narcotics followed by [facility] neurology and Dr. Pritchard. MRI spine 09/24/17 showed mild to moderate spinal canal stenosis at L3-4 and L4- 5. Mild spinal canal stenosis at L2-3. S/p lumbar spinal fusion at L5-S1. b/l facet arthritis at multiple levels. 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 ICD Codes: R26.2 - Difficulty in walking, not elsewhere classified Status: Chronic Plan: PT consulted to reevaluate and treat Hip and femur xray negative for acute fracture -Plan as above (3) DM II (diabetes mellitus, type II), controlled ICD Codes: E11.9 - Type 2 diabetes mellitus without complications Status: Chronic Plan: Continue home medications - Metformin 850 mg po tid - Nateglinide 120 mg po daily - Pioglitazone 30 mg po daily - Low-dose sliding scale insulin (4) Hypertension ICD Codes: I10 - Essential (primary) hypertension Status: Chronic Plan: Continue home antihypertensives: - Amlodipine 5 mg PO daily - Furosemide 40 mg PO daily - Held home Irbesartan (not available), substitute Losartan 50mg PO daily (5) Hypothyroid ICD Codes: E03.9 - Hypothyroidism, unspecified Status: Chronic Plan: - Resume home levothyroxine at 100 g daily (6) Hyperlipemia ICD Codes: E78.5 - Hyperlipidemia, unspecified Status: Chronic Plan: -Atorvastatin 10mg daily HS (7) GERD (gastroesophageal reflux disease) ICD Codes: K21.9 - Gastro-esophageal reflux disease without esophagitis Status: Chronic Plan: Protonix 40 mg PO daily Due to likely GERD exacerbation secondary to limited mobility, patient will require a semi-electric bed when at rehab to keep his head elevated (8) Gout ICD Codes: M10.9 - Gout, unspecified Status: Chronic Plan: Continue Allopurinol 100mg PO daily (9) Nutrition, metabolism, and development symptoms ICD Codes: R63.8 - Other symptoms and signs concerning food and fluid intake Plan: Diet: Diabetic diet Fluids: PO Electrolytes: monitor and replace as needed DVT ppx: Heparin 5000 units sq q12h Problem Qualifiers (1) DM II (diabetes mellitus, type II), controlled: Qualified Codes: E11.42 - Type 2 diabetes mellitus with diabetic polyneuropathy (2) Hypertension: Qualified Codes: I10 - Essential (primary) hypertension (3) Hypothyroid: Qualified Codes: E03.9 - Hypothyroidism, unspecified (4) Hyperlipemia: Qualified Codes: E78.00 - Pure hypercholesterolemia, unspecified (5) GERD (gastroesophageal reflux disease): Qualified Codes: K21.9 - Gastro-esophageal reflux disease without esophagitis (6) Gout: Karthikeyan Rodriguez MD R1 Nov 09, 2017 09:50
[2017-11-09] MEDS: ATORVASTATIN 10 MG TAB PO SCH (22:29)
[2017-11-10 00:43] VITALS: BP 151/87; PULSE 84; RESP 18; TEMP 97.8; O2SAT 97
[2017-11-10] MEDS: CARISOPRODOL 350 MG TAB PO SCH ×3 (00:51→08:20)
[2017-11-10] MEDS: HEPARIN SODIUM - SQ 10,000 UNITS/ML VIAL SQ SCH (03:56)
[2017-11-10 03:58] VITALS: BP 120/61; PULSE 86; RESP 18; O2SAT 96
[2017-11-10] MEDS: LEVOTHYROXINE SODIUM 100 MCG TAB PO SCH (06:13)
[2017-11-10 07:22] VITALS: BP 153/78; PULSE 77; RESP 18; TEMP 97.3; O2SAT 96
[2017-11-10] MEDS: INSULIN ASPART SUPPLEMENTAL SCALE SQ SCH (08:00)
[2017-11-10] MEDS: LOSARTAN 50 MG TAB PO SCH (08:19)
[2017-11-10] MEDS: GABAPENTIN 400 MG CAP PO SCH (08:19)
[2017-11-10] MEDS: PANTOPRAZOLE SOD 40 MG DELAYED RELEASE TAB PO SCH (08:19)
[2017-11-10] MEDS: PIOGLITAZONE HCL 30 MG TAB PO SCH (08:19)
[2017-11-10] MEDS: metFORMIN HCL 850 MG TAB PO SCH (08:20)
[2017-11-10] MEDS: ASPIRIN EC 81 MG TABEC PO SCH (08:20)
[2017-11-10] MEDS: predniSONE 50 MG TAB PO SCH (08:20)
[2017-11-10] MEDS: ALLOPURINOL 100 MG TAB PO SCH (08:20)
[2017-11-10] MEDS: amLODIPine BESYLATE 5 MG TAB PO SCH (08:20)
[2017-11-10] MEDS: DULoxetine HCl DR 30 MG CAP PO SCH (08:20)
[2017-11-10] MEDS: PREGABALIN 25 MG CAP PO SCH (08:20)
[2017-11-10] MEDS: MAGNESIUM OXIDE 400 MG TAB PO SCH (08:21)
[2017-11-10] MEDS: DOCUSATE SODIUM 50 MG/SENNA 8.6 MG TAB PO SCH (08:21)
[2017-11-10] MEDS: FUROSEMIDE 40 MG TAB PO SCH (08:21)
[2017-11-10] MEDS: FENOFIBRATE 48 MG TAB PO SCH (08:21)
[2017-11-10] MEDS: MORPHINE SULFATE 15 MG CONTROLLED RELEASE TAB PO SCH (08:21)
[2017-11-10] MEDS: DICLOFENAC SODIUM 50 MG DELAYED RELEASE TAB PO SCH (08:21)
[2017-11-10] MEDS: SODIUM CHLORIDE 0.9% FLUSH 10 ML FLUSH IV FLUSH SCH (08:22)
[2017-11-10 08:54] VITALS: RESP 20
--- NOTE | 2017-11-10 12:04 | HHI.FPPN ---
Subjective Remarks Patient seen and examined this more. States he continues to have pain in his left leg, similar to how it was yesterday. States he has not been able to work with physical therapy for the past few days. No nausea, vomiting, fever, chills , abdominal pain, chest pain, change in bowel or bladder habits. No other complaints today. Continues to be eager to go home. Objective Vitals Vital Signs Date Time Temp Pulse Resp B/P (MAP) Pulse Ox O2 Delivery O2 Flow Rate FiO2 11/10/17 08:54 20 11/10/17 08:54 20 11/10/17 08:54 20 11/10/17 07:22 97.3 77 18 153/78 (103) 96 11/10/17 03:58 86 18 120/61 (80) 96 11/10/17 00:43 97.8 84 18 151/87 (108) 97 11/09/17 22:24 98.6 80 18 139/77 (97) 96 11/09/17 15:25 96.0 96 15 139/61 (87) 95 I/O 11/09/17 11/09/17 11/09/17 11/10/17 11/10/17 11/10/17 07:00 15:00 23:00 07:00 15:00 23:00 Intake Total 240 ml Balance 240 ml Intake Oral 240 ml # Voids 2 # Bowel Movements 1 Objective Remarks GENERAL: obese male, lying in bed, NAD CARDIOVASCULAR: RRR RESPIRATORY: CTAB, no wheezes, rales GASTROINTESTINAL: Abdomen soft, non-tender, nondistended. + BS MUSCULOSKELETAL: Moderate tenderness to palpation in left thigh and knee. 1+ pitting edema in lower extremities, able to move all toes, Pain with active and passive ROM bilaterally. sensation intact only to left knee, no sensation in left toes, sensation intact to R ankle. NEUROLOGICAL: Awake and alert. Oriented x 3. A/P Assessment and Plan 72 year old man w/ PMH of HTN, HLD, T2DM, and chronic left lower extremity pain with lumbar radiculopathy with known left L5-S1 foraminal herniated nucleus pulposus on chronic narcotics. Admitted to observation for further evaluation and treatment due to inability to ambulate secondary to severe sciatic pain. Discharge Planning Accepted to facility. Working on setting up hospital bed/large wheelchair Problem List: (1) Lumbar radiculopathy ICD Codes: M54.16 - Lumbar radiculopathy Status: Acute Plan: Hx of chronic left lower extremity pain. s/p laminectomy with spinal fusion. On chronic narcotics followed by [facility] neurology and Dr. Pritchard. MRI spine 09/24/17 showed mild to moderate spinal canal stenosis at L3-4 and L4- 5. Mild spinal canal stenosis at L2-3. S/p lumbar spinal fusion at L5-S1. b/l facet arthritis at multiple levels. 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 ICD Codes: R26.2 - Difficulty in walking, not elsewhere classified Status: Chronic Plan: PT consulted to reevaluate and treat Hip and femur xray negative for acute fracture -Plan as above (3) DM II (diabetes mellitus, type II), controlled ICD Codes: E11.9 - Type 2 diabetes mellitus without complications Status: Chronic Plan: Continue home medications - Metformin 850 mg po tid - Nateglinide 120 mg po daily - Pioglitazone 30 mg po daily - Low-dose sliding scale insulin (4) Hypertension ICD Codes: I10 - Essential (primary) hypertension Status: Chronic Plan: Continue home antihypertensives: - Amlodipine 5 mg PO daily - Furosemide 40 mg PO daily - Held home Irbesartan (not available), substitute Losartan 50mg PO daily (5) Hypothyroid ICD Codes: E03.9 - Hypothyroidism, unspecified Status: Chronic Plan: - Resume home levothyroxine at 100 g daily (6) Hyperlipemia ICD Codes: E78.5 - Hyperlipidemia, unspecified Status: Chronic Plan: -Atorvastatin 10mg daily HS (7) GERD (gastroesophageal reflux disease) ICD Codes: K21.9 - Gastro-esophageal reflux disease without esophagitis Status: Chronic Plan: Protonix 40 mg PO daily Due to likely GERD exacerbation secondary to limited mobility, patient will require a semi-electric bed when at rehab to keep his head elevated (8) Gout ICD Codes: M10.9 - Gout, unspecified Status: Chronic Plan: Continue Allopurinol 100mg PO daily (9) Nutrition, metabolism, and development symptoms ICD Codes: R63.8 - Other symptoms and signs concerning food and fluid intake Plan: Diet: Diabetic diet Fluids: PO Electrolytes: monitor and replace as needed DVT ppx: Heparin 5000 units sq q12h Problem Qualifiers (1) DM II (diabetes mellitus, type II), controlled: Qualified Codes: E11.42 - Type 2 diabetes mellitus with diabetic polyneuropathy (2) Hypertension: Qualified Codes: I10 - Essential (primary) hypertension (3) Hypothyroid: Qualified Codes: E03.9 - Hypothyroidism, unspecified (4) Hyperlipemia: Qualified Codes: E78.00 - Pure hypercholesterolemia, unspecified (5) GERD (gastroesophageal reflux disease): Qualified Codes: K21.9 - Gastro-esophageal reflux disease without esophagitis (6) Gout: Karthikeyan Rodriguez MD R1 Nov 10, 2017 12:04
[2017-11-11] MEDS ORDERED: MORP1TAB24 PO (12:17)
[2017-11-11] MEDS ORDERED: HYDR-3583 PO (12:17)
== END 2017-11-10 12:02 | disposition home or self-care (01) ==
LOC: PHEFT 17:04 → PHEDA 22:18 → NEPHCDU 11-02 00:45 → NEPFCDU 11-08 18:26
PROVIDERS: ADMIT Family Medicine; ATTEND Family Medicine
DX: M54.16 Radiculopathy, lumbar region (principal); M79.662 Pain in left lower leg; M25.552 Pain in left hip; E78.00 Pure hypercholesterolemia, unspecified; K21.9 Gastro-esophageal reflux disease without esophagitis; K59.00 Constipation, unspecified; G62.9 Polyneuropathy, unspecified; R91.1 Solitary pulmonary nodule; I10 Essential (primary) hypertension; E07.9 Disorder of thyroid, unspecified; W18.39XA Other fall on same level, initial encounter
CPT/HCPCS: 73502; 73552; 80053; 82948; 85027; 96372; 97110; 97112; 97163; 97530; 99285; G0378; G8987; G8988; J1644; J1815; J1885; J7512

== ENCOUNTER 2017-12-10 10:56 | Inpatient (IN) | payer MEDICARE ==
[2017-12-10] VITALS (11 sets, daily range): BP systolic 96–157; BP diastolic 55–90; PULSE 75–103; RESP 15–24; TEMP 97.7–98.3; O2SAT 86–99
[~2017-12-10] VITALS: Ht 180.3 cm; Wt 135.6 kg
[~2017-12-10 10:56] MED LIST changes: -CYCL10TA; -CYCL10TA PO; -DOCU1CAP66; +DOCU1CAP66 PO; -GABA600T PO; -IRBE150T15; +IRBE150T15 PO; -LOVA20TA PO; -LYRI50CA; +LYRI50CA PO
[2017-12-10] MEDS ORDERED: methylPREDNISolone SOD SUCC 125 MG/2 ML VIAL IV PUSH ONE (11:15)
[2017-12-10] MEDS ORDERED: SODIUM CHLORIDE 0.9% FLUSH 10 ML FLUSH IVF PRN (11:15)
[2017-12-10] MEDS: RESP: ALBUTEROL 2.5 MG/IPRATROPIUM 0.5 MG NEB (SCH) INH ×2 (11:16→11:17)
[2017-12-10 11:30] LABS: AUTOMATED NEUTROPHIL # 11.2 TH/MM3 (1.8-7.7); BASOPHIL # 0.1 TH/MM3 (0-0.2); BASOPHIL % 0.4 % (0.0-2.0); EOSINOPHIL # 0.2 TH/MM3 (0-0.4); EOSINOPHIL % 1.1 % (0.0-4.0); HEMOGLOBIN 12.7 GM/DL (13.0-17.0); LYMPH % 17.5 % (9.0-44.0); LYMPHOCYTE # 2.7 TH/MM3 (1.0-4.8); MEAN CELL VOLUME 85.4 FL (80.0-100.0); MEAN CORPUSCULAR HEMOGLOBIN 27.1 PG (27.0-34.0); MEAN CORPUSCULAR HGB CONC 31.7 % (32.0-36.0); MEAN PLATELET VOLUME 7.6 FL (7.0-11.0); MONO % 9.5 % (0.0-8.0); MONOCYTE # 1.5 TH/MM3 (0-0.9); NEUT % 71.5 % (16.0-70.0); PLATELET COUNT 491 TH/MM3 (150-450); RED BLOOD COUNT 4.68 MIL/MM3 (4.50-5.90); RED CELL DISTRIBUTION WIDTH 16.4 % (11.6-17.2); WHITE BLOOD COUNT 15.7 TH/MM3 (4.0-11.0)
--- NOTE | 2017-12-10 11:35 | RADRPT ---
EXAM DATE/TIME: 12/10/2017 11:21 [facility] COMPARISON: CHEST PA & LAT, June 11, 2016, 11:01. INDICATIONS : Short of breath MEDICAL HISTORY : Cardiovascular disease. Hypertension. GERD, diabetes SURGICAL HISTORY : Fusion, thoracic. ENCOUNTER: Initial ACUITY: 1 day PAIN SCORE: 0/10 LOCATION: Bilateral chest FINDINGS: Cardiomegaly is present mild interstitial edema. Minimal parenchymal changes right mid lung. No ple ural effusion no pneumothorax. Lateral spine fixation or thoracic spine. CONCLUSION: Mild cardiomegaly. Minimal peripheral changes laterally right lung new from comparison study nonspec ific. Arben Hirsch MD FACR on December 10, 2017 at 11:31 Board Certified Radiologist. This report was verified electronically.
[2017-12-10 11:37] LABS: CHLORIDE 99 MEQ/L (98-107); SODIUM (NA) 133 MEQ/L (136-145)
[2017-12-10 11:40] LABS: BICARBONATE 23.9 MEQ/L (21.0-32.0); BLOOD UREA NITROGEN 28 MG/DL (7-18); CALCIUM 9.2 MG/DL (8.5-10.1); GLUCOSE,RANDOM 120 MG/DL (74-106)
[2017-12-10 11:43] LABS: ALT (GPT) 21 U/L (12-78); AST (GOT) 34 U/L (15-37)
[2017-12-10 11:44] LABS: GLOMERULAR FILTRATION RATE 37 ML/MIN (>89)
[2017-12-10 11:45] LABS: TOTAL BILIRUBIN ADULT 0.8 MG/DL (0.2-1.0); TOTAL PROTEIN 7.2 GM/DL (6.4-8.2)
[2017-12-10 11:46] LABS: ALKALINE PHOSPHATASE 115 U/L (45-117)
[2017-12-10 11:55] LABS: TROPONIN I 0.25 NG/ML (0.02-0.05)
[2017-12-10] MEDS ORDERED: SOMA350T PO (12:09)
[2017-12-10] MEDS ORDERED: GABA600T PO (12:09)
[2017-12-10] MEDS ORDERED: VITA3000 PO (12:09)
[2017-12-10] MEDS ORDERED: METH8TAB3 PO (12:09)
[2017-12-10 12:13] LABS: INTERNATIONAL NORMALIZED RATIO 1.1 RATIO; PROTHROMBIN TIME - PATIENT 11.4 SEC (9.8-11.6)
[2017-12-10] MEDS ORDERED: ASPIRIN 81 MG CHEW TAB CHEW ONE (12:15)
[2017-12-10 12:16] LABS: D-DIMER 4.65 MG/L FEU (0.00-0.50)
[2017-12-10] MEDS ORDERED: HEPARIN - 10,000 UNITS/ML IV ADDITIVE IV PUSH STA (12:25)
[2017-12-10] MEDS ORDERED: HEPARIN SODIUM - IV 10,000 UNITS/10 ML VIAL IV PUSH STA (12:38)
[2017-12-10] MEDS: HEPARIN-D5W 25,000 U/250 ML 250 ML IV PRN (12:46)
[2017-12-10] MEDS ORDERED: LEVOFLOXACIN 750 MG PREMIX INJ 150 ML IV ONE (13:00)
[2017-12-10] MEDS ORDERED: SODIUM CHLORID 0.9% 500 ML INJ 500 ML IV ONE ×2 (13:00)
--- NOTE | 2017-12-10 13:34 | PD ---
HPI Chief Complaint: Respiratory Symptoms Time Seen by Provider: 11:11 Travel History International Travel<30 days: No Contact w/Intl Traveler<30days: No Traveled to known affect area: No History of Present Illness HPI This is a 72-year-old male who presents to the emergency department having been increasingly short of breath and weak for the past week, constant, severe, worse with laying flat and worse with exertion, improved with rest. He has noticed some increasing swelling in his left leg compared to his right. He has no history of COPD or congestive heart failure. He denies any fevers or chills. He has a dry cough. PFSH Past Medical History Hx Anticoagulant Therapy: Yes Arthritis: No Asthma: No Autoimmune Disease: No Anxiety: No Depression: Yes Heart Rhythm Problems: No Cancer: No Cardiovascular Problems: Yes High Cholesterol: Yes Chemotherapy: No Chest Pain: No Congestive Heart Failure: No COPD: No Cerebrovascular Accident: No Diabetes: Yes Patient Takes Glucophage: Yes Diminished Hearing: No Endocrine: Yes Gastrointestinal Disorders: Yes (ACID REFLUX, OCCAS & CONSTIPATION ) GERD: Yes Genitourinary: No Hepatitis: No Hiatal Hernia: No Hypertension: Yes Immune Disorder: No Kidney Stones: No Medical other: Yes (RECENT FALL ON R KNEE WITH PAIN) Musculoskeletal: Yes (LOSS OF STRENGTH OF LEFT LEG, OA, TORN ROTATOR CUFF RIGHT ) Neurologic: Yes (NEUROPATHY LEFT FOOT) Psychiatric: Yes (DEPRESSION) Reproductive: No Respiratory: Yes (lung nodule ) Migraines: No Radiation Therapy: No Renal Failure: No Seizures: No Sickle Cell Disease: No Sleep Apnea: No Thyroid Disease: Yes Ulcer: No Tetanus Vaccination: Unknown Past Surgical History Abdominal Surgery: Yes (APPENDECTOMY) AICD: No Appendectomy: Yes Arteriovenous Shunt: No Body Medical Devices: PT DENIES ANY IMPLANTS Cardiac Surgery: No Ear Surgery: No Endocrine Surgery: No Eye Surgery: No Genitourinary Surgery: No Gynecologic Surgery: No Insulin Pump: No Joint Replacement: No Neurologic Surgery: Yes (CERVICAL SPINE STIMULATOR AND REMOVAL 1 YR AGO; PLATE THORACIC SPINE 2006?) Oral Surgery: Yes (TONSILLECTOMY ) Pacemaker: No Thoracic Surgery: No Tonsillectomy: Yes Other Surgery: Yes Social History Alcohol Use: No Tobacco Use: No Substance Use: No Allergies-Medications (Allergen,Severity, Reaction): Coded Allergies: coconut (Unverified Allergy, Severe, Hives, 10/24/17) Reported Meds & Prescriptions Reported Meds & Active Scripts Active Hydrocodone-Acetaminophen 10-325 mg Tab 1 Tab PO Q4H PRN Morphine ER (Morphine Sulfate) 15 Mg Tab 15 Mg PO BID Diclofenac Sodium DR (Diclofenac Sodium) 50 Mg Tabdr 50 Mg PO DAILY Neurontin (Gabapentin) 400 Mg Cap 800 Mg PO TID Reported Methylprednisolone 8 Mg Tab 4 Mg PO DAILY Gabapentin 600 Mg Tab 600 Mg PO TID Vitamin D3 (Cholecalciferol) 3,000 Unit Tab 6,000 Units PO DAILY Soma (Carisoprodol) 350 Mg Tab 350 Mg PO Q6HR Fenofibrate 54 Mg Tab 54 Mg PO DAILY Stool Softener (Docusate Sodium) 100 Mg Cap 1 Cap PO DAILY PRN Vitamin B-12 ER (Cyanocobalamin) 1,000 Mcg Tab 1,000 Mcg PO DAILY Aspirin EC (Aspirin) 81 Mg Tabdr 81 Mg PO DAILY Atorvastatin (Atorvastatin Calcium) 10 Mg Tab 10 Mg PO HS Lyrica (Pregabalin) 50 Mg Cap 1 Cap PO TID Irbesartan 150 Mg Tab 1 Tab PO DAILY Vitamin C ER (Ascorbic Acid) 500 Mg Sandra 500 Mg PO DAILY Vitamin D3 (Cholecalciferol) 5,000 Unit Cap 5,000 Units PO DAILY Metformin (Metformin HCl) 850 Mg Tab 1,700 Mg PO HS With a meal Metformin (Metformin HCl) 850 Mg Tab 850 Mg PO BID Nateglinide 120 Mg Tab 120 Mg PO DAILY Levothyroxine (Levothyroxine Sodium) 100 Mcg Tab 100 Mcg PO DAILY Amlodipine (Amlodipine Besylate) 5 Mg Tab 5 Mg PO DAILY Furosemide 40 Mg Tab 40 Mg PO DAILY Duloxetine DR (Duloxetine HCl) 30 Mg Capdr 30 Mg PO DAILY Allopurinol 100 Mg Tab 100 Mg PO DAILY Pioglitazone (Pioglitazone HCl) 30 Mg Tab 30 Mg PO DAILY Magnesium 400 Mg Tab 400 Mg PO DAILY Review of Systems Except as stated in HPI: all other systems reviewed are Neg Physical Exam Narrative GENERAL: Morbidly obese, no acute distress SKIN: Focused skin assessment warm and dry. HEAD: Atraumatic. Normocephalic. EYES: Pupils equal and round. No injection or drainage. ENT: Moist mucous membranes NECK: Trachea midline. CARDIOVASCULAR: Regular rate and rhythm. No murmur appreciated. RESPIRATORY: Rales appreciated in the left lower lung base. Mild expiratory wheeze. Tachypnea. GASTROINTESTINAL: Abdomen soft, non-tender, nondistended. MUSCULOSKELETAL: No obvious deformities. No Homans sign. No peripheral edema. NEUROLOGICAL: Awake and alert. No obvious cranial nerve deficits. Moving all extremities. PSYCHIATRIC: Appropriate mood and affect; insight and judgment normal. Data Data Last Documented VS Vital Signs Date Time Temp Pulse Resp B/P (MAP) Pulse Ox O2 Delivery O2 Flow Rate FiO2 12/10/17 15:20 88 20 96/67 (77) 94 Venturi Mask 35 12/10/17 12:10 4.00 12/10/17 11:05 98.2 Orders Orders Complete Blood Count With Diff (12/10/17 11:11) Comprehensive Metabolic Panel (12/10/17 11:11) B-Type Natriuretic Peptide (12/10/17 11:11) D-Dimer (12/10/17 11:11) Act Partial Throm Time (Ptt) (12/10/17 11:11) Prothrombin Time / Inr (Pt) (12/10/17 11:11) Troponin I (12/10/17 11:11) Influenzae A/B Antigen (12/10/17 11:11) Iv Access Insert/Monitor (12/10/17 11:11) Ecg Monitoring (12/10/17 11:11) Oximetry (12/10/17 11:11) Oxygen Administration (12/10/17 11:11) Chest, Single Ap (12/10/17 11:11) Sodium Chloride 0.9% Flush (Ns Flush) (12/10/17 11:15) Methylprednisolone So Succ Inj (Solumedr (12/10/17 11:15) Albuterol-Ipratropium Neb (Duoneb Neb) (12/10/17 11:15) Lactic Acid (12/10/17 11:46) Blood Culture (12/10/17 11:46) Aspirin Chew (Aspirin Chew) (12/10/17 12:15) Ventilation & Perfusion Scan (12/10/17 ) Heparin Inj (Heparin Inj) (12/10/17 18:30) Heparin Inj (Heparin Inj) (12/10/17 18:30) Heparin-D5w 25,000 U/250 Ml (Heparin-D5w (12/10/17 13:00) Cbc No Diff, Includes Plts (12/13/17 06:00) Act Partial Throm Time (Ptt) (12/10/17 19:25) Occult Blood (Hemoccult) Stool (12/10/17 12:25) Heparin Inj (Heparin Inj) (12/10/17 12:38) Levofloxacin 750 Mg Premix Inj (Levaquin (12/10/17 13:00) Sodium Chlorid 0.9% 500 Ml Inj (Ns 500 M (12/10/17 13:00) Sodium Chlorid 0.9% 500 Ml Inj (Ns 500 M (12/10/17 13:00) Act Partial Throm Time (Ptt) (12/10/17 19:00) Admit Order (Ed Use Only) (12/10/17 15:36) Labs Laboratory Tests Test 12/10/17 11:15 12/10/17 12:00 White Blood Count 15.7 TH/MM3 Red Blood Count 4.68 MIL/MM3 Hemoglobin 12.7 GM/DL Hematocrit 40.0 % Mean Corpuscular Volume 85.4 FL Mean Corpuscular Hemoglobin 27.1 PG Mean Corpuscular Hemoglobin Concent 31.7 % Red Cell Distribution Width 16.4 % Platelet Count 491 TH/MM3 Mean Platelet Volume 7.6 FL Neutrophils (%) (Auto) 71.5 % Lymphocytes (%) (Auto) 17.5 % Monocytes (%) (Auto) 9.5 % Eosinophils (%) (Auto) 1.1 % Basophils (%) (Auto) 0.4 % Neutrophils # (Auto) 11.2 TH/MM3 Lymphocytes # (Auto) 2.7 TH/MM3 Monocytes # (Auto) 1.5 TH/MM3 Eosinophils # (Auto) 0.2 TH/MM3 Basophils # (Auto) 0.1 TH/MM3 CBC Comment DIFF FINAL Differential Comment Prothrombin Time 11.4 SEC Prothromb Time International Ratio 1.1 RATIO Activated Partial Thromboplast Time 30.9 SEC D-Dimer Quantitative (PE/DVT) 4.65 MG/L FEU Blood Urea Nitrogen 28 MG/DL Creatinine 1.80 MG/DL Random Glucose 120 MG/DL Total Protein 7.2 GM/DL Albumin 3.0 GM/DL Calcium Level 9.2 MG/DL Alkaline Phosphatase 115 U/L Aspartate Amino Transf (AST/SGOT) 34 U/L Alanine Aminotransferase (ALT/SGPT) 21 U/L Total Bilirubin 0.8 MG/DL Sodium Level 133 MEQ/L Potassium Level 4.3 MEQ/L Chloride Level 99 MEQ/L Carbon Dioxide Level 23.9 MEQ/L Anion Gap 10 MEQ/L Estimat Glomerular Filtration Rate 37 ML/MIN Troponin I 0.25 NG/ML B-Type Natriuretic Peptide 295 PG/ML Lactic Acid Level 2.6 mmol/L MDM Medical Decision Making Medical Screen Exam Complete: Yes Emergency Medical Condition: Yes Interpretation(s) Afebrile, mild tachycardia, hypoxia Afebrile, hypoxic on room air Leukocytosis of 15.7 Renal insufficiency Troponin is 0.25 BNP is 295 Lactic acid is 2.6 Chest x-ray demonstrates cardiomegaly and some interstitial lung changes in the right VQ scan demonstrates prominent mismatch defect involving the right upper lung suggestive of pulmonary embolism Differential Diagnosis Myocardial infarction, congestive heart failure, pneumonia, pulmonary embolism Narrative Course This is a 72-year-old male who presents to the emergency department with increasing shortness of breath it's been going on for 1 week. At baseline he is quite sedentary. He has minimal lung findings on exam but is hypoxic on room air and requires 5 L injury mass to maintain his oxygen saturation. Initially given history of smoking he was given salumedrol and serial duonebs. EKG is fairly ischemic with new T-wave inversions in the lateral leads and old Q waves in the inferior leads. Labs demonstrate an elevated troponin and renal insufficiency. Patient was started empirically on heparin. VQ scan was obtained as patient has renal insufficiency and CT pulmonary angiogram likely would be inadequate in the setting of reduced IV contrast. VQ scan demonstrates high probability for right sided pulmonary embolism. I think this is consistent with the patient's clinical symptoms. Given the patient's hypoxia and low trending blood pressure plan for admission and transfer to the main intensive care unit for close monitoring and consideration of TPA if patient worsens. Critical Care Narrative Aggregate critical care time was 60 minutes. Time to perform other separately billable procedures was not included in the critical care time. My time did not include minutes spent treating any other patients simultaneously or on activities that did not directly contribute to the patient's treatment. The services I provided to this patient were to treat and/or prevent clinically significant deterioration that could result in: Disability, I provided critical care services requiring my management, as noted below: Chart data review, documentation time, medication orders and management, vital sign assessments/reviewing monitor data, ordering and reviewing lab tests, ordering and interpreting/reviewing x-rays and diagnostic studies, care of the patient and discussion of the patient with the admitting physicians. Physician Communication Physician Communication Discussed with Dr. thornton Diagnosis Primary Impression: Pulmonary embolism Qualified Codes: I26.09 - Other pulmonary embolism with acute cor pulmonale Admitting Information Admitting Physician Requests: Admit Lizeth Dawn MD Dec 10, 2017 13:34
--- NOTE | 2017-12-10 15:09 | RADRPT ---
EXAM DATE/TIME: 12/10/2017 14:30 [facility] COMPARISON: CHEST SINGLE AP, December 10, 2017, 11:21. INDICATIONS : Dyspnea and chest pain for three days. DOSE: 0.72 mCi Tc99m DTPA 8.5 mCi Tc99m MAA MEDICAL HISTORY : Diabetes mellitus type 2. Hypertension. Gastroesophageal reflux disease. SURGICAL HISTORY : Tonsillectomy. Appendectomy. Total knee replacement, left. T-spine. ENCOUNTER: Initial ACUITY: 2 days PAIN SCALE: 0/10 LOCATION: Bilateral chest TECHNIQUE: Following five minutes of tidal breathing of DTPA aerosol, planar images of the lungs were performed in eight projections. The patient was then injected with MAA, and eight-view perfusion scan was perf ormed. FINDINGS: There is a homogeneous pattern of aerosol delivery to the periphery of both lungs. No focal ventilat ory defects are seen. The perfusion lung scan demonstrates a significant perfusion defect involving the right upper lung. T his is a mismatch defect. There appears to be good perfusion of the left lung.. CONCLUSION: Prominent mismatch defect involving the right upper lung characteristic for pulmonary embolism. This is a high probability for PE. Ric Dolan MD on December 10, 2017 at 15:05 Board Certified Radiologist. This report was verified electronically.
[2017-12-10] MEDS ORDERED: CHLORHEXIDINE GLUCONATE 2 % 1 PACK (2 CLOTHS) TOP PRN (17:45)
[2017-12-10] MEDS ORDERED: MISCELLANEOUS NURSING INFORMATION XX SCH (17:45)
[2017-12-10] MEDS ORDERED: LACTULOSE SYRUP 20 GM/30 ML CUP PO PRN (17:45)
[2017-12-10] MEDS ORDERED: MAGNESIUM HYDROXIDE SUSP 30 ML CUP PO PRN (17:45)
[2017-12-10] MEDS ORDERED: BISACODYL 10 MG SUPP RECTAL PRN (17:45)
[2017-12-10] MEDS ORDERED: SODIUM CHLOR 0.9% 1000 ML INJ 1,000 ML IV ONE (17:45)
[2017-12-10] MEDS ORDERED: SENNOSIDES 8.6 MG TAB PO PRN (17:45)
[2017-12-10] MEDS ORDERED: GLUCAGON 1 MG/ML VIAL OTHER PRN (18:00)
[2017-12-10] MEDS ORDERED: DEXTROSE 50% IN WATER 50 ML VIAL(D50) IV PUSH PRN (18:00)
[2017-12-10] MEDS ORDERED: RESP: ALBUTEROL 2.5 MG/IPRATROPIUM 0.5 MG NEB (PRN) NEB (18:00)
[2017-12-10] MEDS: SODIUM CHLOR 0.9% 1000 ML INJ 1,000 ML IV SCH (18:20)
[2017-12-10] MEDS ORDERED: HEPARIN SODIUM - IV 10,000 UNITS/10 ML VIAL IV PRN (18:30)
[2017-12-10] MEDS ORDERED: HEPARIN - 10,000 UNITS/ML IV ADDITIVE IV PRN (18:30)
[2017-12-10] MEDS: INSULIN NovoLIN REGULAR SUPPLEMENTAL SCALE SQ SCH ×2 (18:31→22:43)
--- NOTE | 2017-12-10 19:07 | MH ---
cc: NANDA MONTES DE OCA DATE OF ADMISSION 12/10/2017 1944 HISTORY OF PRESENT ILLNESS The patient is a 72-year-old male with multiple comorbidities which include hypertension, diabetes mellitus, hyperlipidemia, hypothyroidism, gastroesophageal reflux disease, chronic edema of left lower extremity who presented to [facility] ED with one week history of progressive worsening shortness of breath. The patient states that his dyspnea is worse with exertion and improved with rest. He also noticed increased swelling in his left leg compared to the right lower extremity. He denies any history of COPD or CHF. On arrival to the ED, the patient was tachycardiac and hypoxic. He was placed on 35% ventilatory mask with improvements of his saturation. His laboratory data significant for elevated D-dimer 4.65, mild elevation troponin 0.25 and lactic acid of 2.6. In addition, he had some acute kidney injury with creatinine level of 1.80. Chest x-ray showed mild cardiomegaly with minimal peripheral changes right lung new compared to prior study. VQ scan was obtained which showed high probability for PE. In the ED, the patient was hypotensive with blood pressure 96/67 and he was given two liter boluses of normal saline and transferred to [facility] room 521. When seen, the patient remains on 35% ventilatory mask with sats of 96%. His blood pressure improved to 115/61 with a pulse of 80. He denies any nausea, vomiting or abdominal pain. In addition, no history of cough or constitutional symptoms. PAST MEDICAL HISTORY 1. Hypertension, 2. Diabetes mellitus, 3. Hyperlipidemia, 4. Hypothyroidism, 5. Gastroesophageal reflux disease PAST SURGICAL HISTORY 1. Previous tonsillectomy 2. Appendectomy. 3. Previous decompressive laminectomy foraminotomy for decompression and fusion of L5-S1 in June 2016 [employer] [employer]. FAMILY HISTORY Diabetes mellitus, coronary artery disease runs in the family. SOCIAL HISTORY The patient lives alone, ex-smoker with extensive tobacco use. Occasional drinker. MEDICATIONS Reported include 1. Soma 2. Atorvastatin. 3. Amlodipine. 4. Aspirin 5. Gabapentin 6. Neurontin 7. Metformin. 8. Ascorbic acid 9. Vitamin D3. 10. Allopurinol. REVIEW OF SYSTEMS As per HPI, the rest of review of system unremarkable. PHYSICAL EXAMINATION GENERAL: A 72-year-old male lying in bed in mild respiratory distress. VITAL SIGNS: Afebrile, pulse of 80, blood pressure 115/61, sats 92% on 35% Ventimask. HEENT: Atraumatic, normocephalic. Pupils equal, round and reactive to light and accommodation. Extraocular muscles intact. Conjunctivae pink. Nonicteric sclerae. Oral mucosa dry mucous membranes noted. NECK: Supple. No JVD, adenopathy or thyromegaly. Trachea in the midline CARDIOVASCULAR: Regular rate and rhythm. Normal S1, S2. No murmurs, rubs or gallops noted. PULMONARY: Bilateral equal entry. No crackles or wheezing. ABDOMEN: Soft, obese, nontender, no distension. Positive bowel sounds. EXTREMITIES: No cyanosis, clubbing. edema left lower extremity noted. NEUROLOGIC: No focal sensory deficit. LABORATORY DATA Sodium was 133, potassium 4.3, chloride 99, CO2 23, BUN 28, creatinine 1.80, glucose 120, lactic acid 2.6, troponin 0.25, BNP 295, albumin 3.0. WBC 15.7, hemoglobin 12.7, hematocrit 40, platelet count 491, INR 1.1, PT 11.4, PTT 30, D-dimer 4.65. IMAGING STUDIES VQ scan showed high probability for PE. Chest x-ray showed mild cardiomegaly. IMPRESSION 1. Acute hypoxemic respiratory insufficiency. 2. Pulmonary embolism. 3. Acute kidney injury. 4. Mild lactic acidemia 5. Mild elevation in troponin secondary to PE 6. Leukocytosis 7. Edema of left lower extremity. 8. Hypertension 9. Diabetes mellitus. 10. Hyperlipidemia. 11. Hypothyroidism. 12. Gastroesophageal reflux disease RECOMMENDATIONS 1. Monitor neuro status and avoid any sedatives. 2. Continue with oxygen and maintain sats above 92%. 3. Bronchodilators in the form of DuoNeb q. 4+ q. 2 p.r.n. for shortness of breath. 4. Monitor heart rate and blood pressure closely and maintain MAP greater than 65 mmHg. He was given one liter of normal saline in the ED. We will give an additional one liter bolus and continue with maintenance fluids NS at 84 mL an hour. Repeat lactic acid level. 5. Monitor troponins and we will obtain a 2-D echo to evaluate LV function and to rule out RV strain. 6. Continue with heparin drip per PE protocol. Monitor PTT. The patient responded to IV hydration. 7. Monitor renal function Is and Os and electrolyte replacement as needed. Avoid any nephrotoxins. 8. IV fluids as stated above. 9. Place on Pepcid 10 mg IV q. 12 for GI prophylaxis. Start p.o. heart healthy diet once respiratory status improves. 10. Monitor for signs of infections which include fever and WBC. Chest x-ray in the ED showed mild cardiomegaly with minimal peripheral changes laterally right lung. We will obtain a sputum culture with a gram stain. Urinalysis with culture if indicated. I will hold off on antibiotics at this time as there is no evidence of any infectious process. 11. Monitor CBC and coags as the patient is on heparin drip for PE. 12. Place on sliding scale insulin with Accu-Chek q. 4-hour for glycemic control. 13. Check a baseline TSH level. 14. We will obtain a Doppler ultrasound of lower extremity to rule out DVT. 15. GI prophylaxis with Pepcid and DVT prophylaxis with SCDs to the right lower extremity. In addition, the patient is on heparin drip. Further recommendations will be based on hospital course. MD KALEB Murray/ /5:46 PM /6:29 PM
[2017-12-10] MEDS: DOCUSATE SODIUM 50 MG/SENNA 8.6 MG TAB PO SCH (19:36)
[2017-12-10] MEDS: FAMOTIDINE 20 MG/2 ML VIAL IV PUSH SCH (19:36)
[2017-12-10 19:40] LABS: AUTOMATED NEUTROPHIL # 12.9 TH/MM3 (1.8-7.7); BASOPHIL % 0.2 % (0.0-2.0); HEMATOCRIT 33.4 % (39.0-51.0); LYMPH % 5.9 % (9.0-44.0); LYMPHOCYTE # 0.8 TH/MM3 (1.0-4.8); MEAN CELL VOLUME 84.7 FL (80.0-100.0); MEAN CORPUSCULAR HEMOGLOBIN 27.8 PG (27.0-34.0); MEAN CORPUSCULAR HGB CONC 32.8 % (32.0-36.0); MEAN PLATELET VOLUME 7.2 FL (7.0-11.0); MONO % 2.4 % (0.0-8.0); MONOCYTE # 0.3 TH/MM3 (0-0.9); NEUT % 91.5 % (16.0-70.0); PLATELET COUNT 348 TH/MM3 (150-450); RED BLOOD COUNT 3.94 MIL/MM3 (4.50-5.90); RED CELL DISTRIBUTION WIDTH 16.6 % (11.6-17.2); WHITE BLOOD COUNT 14.1 TH/MM3 (4.0-11.0)
[2017-12-10] MEDS: RESP: ALBUTEROL 2.5 MG/IPRATROPIUM 0.5 MG NEB (SCH) NEB (19:59)
[2017-12-10 20:07] LABS: BICARBONATE 20.9 MEQ/L (21.0-32.0); CALCIUM 8.2 MG/DL (8.5-10.1); CREATININE 1.69 MG/DL (0.60-1.30)
[2017-12-10 20:10] LABS: TROPONIN I 0.21 NG/ML (0.02-0.05)
--- NOTE | 2017-12-10 21:36 | RADRPT ---
EXAM DATE/TIME: 12/10/2017 18:52 [facility] COMPARISON: No previous studies available for comparison. INDICATIONS : Bilateral leg swelling. MEDICAL HISTORY : Hypercholesterolemia. Hypertension. Gastroesophageal reflux disease. Thyroid disease. Floaters. Diffi culty hearing. Neuropathy left foot. Anticoagulant therapy. Dyspnea. Loung nodule. GOUT. Arthritis. D iabetes. SURGICAL HISTORY : Tonsillectomy.Appendectomy. Arthroscopy.Cervical spine stimulator. ENCOUNTER: Subsequent ACUITY: >1 year PAIN SCORE: 3/10 LOCATION: Bilateral legs. TECHNIQUE: Venous ultrasound of the left and right leg was performed from the inguinal ligament to the proximal calf. Real-time, color Doppler and spectral tracing, compression and augmentation techniques were us ed. FINDINGS: There is occlusive thrombus in the right peroneal vein and nonocclusive thrombus in the right poplite al vein. On the left side is occlusive thrombus starting at the bifurcation of the superficial and deep femora l vein and extending into the distal superficial femoral vein. Nonocclusive thrombus seen in the post erior tibial vein. Remainder of the lower extremity veins are patent. CONCLUSION: 1. Occlusive and nonocclusive deep venous thrombus in the lower extremities bilaterally. Pawan Harrington MD on December 10, 2017 at 21:31 Board Certified Radiologist. This report was verified electronically.
[2017-12-11] VITALS (23 sets, daily range): BP systolic 106–144; BP diastolic 57–81; PULSE 75–97; RESP 14–25; TEMP 97.7–98.3; O2SAT 93–99
[2017-12-11] MEDS: RESP: ALBUTEROL 2.5 MG/IPRATROPIUM 0.5 MG NEB (SCH) NEB ×7 (00:05→23:50)
[2017-12-11] MEDS: INSULIN NovoLIN REGULAR SUPPLEMENTAL SCALE SQ SCH ×6 (00:34→21:35)
[2017-12-11] MEDS: CHLORHEXIDINE GLUCONATE 2 % 1 PACK (2 CLOTHS) TOP SCH (03:09)
[2017-12-11] MEDS: SODIUM CHLOR 0.9% 1000 ML INJ 1,000 ML IV SCH ×2 (05:35→18:17)
[2017-12-11 05:42] LABS: AUTOMATED NEUTROPHIL # 15.5 TH/MM3 (1.8-7.7); BASOPHIL % 0.1 % (0.0-2.0); HEMATOCRIT 34.8 % (39.0-51.0); HEMOGLOBIN 11.6 GM/DL (13.0-17.0); LYMPH % 8.6 % (9.0-44.0); LYMPHOCYTE # 1.6 TH/MM3 (1.0-4.8); MEAN CELL VOLUME 83.4 FL (80.0-100.0); MEAN CORPUSCULAR HEMOGLOBIN 27.8 PG (27.0-34.0); MEAN CORPUSCULAR HGB CONC 33.3 % (32.0-36.0); MEAN PLATELET VOLUME 7.4 FL (7.0-11.0); MONO % 5.9 % (0.0-8.0); MONOCYTE # 1.1 TH/MM3 (0-0.9); NEUT % 85.4 % (16.0-70.0); PLATELET COUNT 443 TH/MM3 (150-450); RED BLOOD COUNT 4.17 MIL/MM3 (4.50-5.90); RED CELL DISTRIBUTION WIDTH 16.4 % (11.6-17.2); WHITE BLOOD COUNT 18.1 TH/MM3 (4.0-11.0)
[2017-12-11 06:01] LABS: CREATININE 1.69 MG/DL (0.60-1.30); MAGNESIUM 1.9 MG/DL (1.5-2.5); PHOSPHORUS 2.3 MG/DL (2.5-4.9)
--- NOTE | 2017-12-11 08:15 | HHI.CCPN ---
Subjective Remarks/Hospital Course Patient is a 72-year-old male with multiple comorbidities which include hypertension, diabetes mellitus, hyperlipidemia, hypothyroidism, gastroesophageal reflux disease, chronic edema of left lower extremity who presented to [place] ED with one week history of progressive worsening shortness of breath. The patient states that his dyspnea is worse with exertion and improved with rest. He also noticed increased swelling in his left leg compared to the right lower extremity. He denies any history of COPD or CHF. On arrival to the ED, the patient was tachycardiac and hypoxic. He was placed on 35% ventilatory mask with improvements of his saturation. His laboratory data significant for elevated D-dimer 4.65, mild elevation troponin 0.25 and lactic acid of 2.6. In addition, he had some acute kidney injury with creatinine level of 1.80. Chest x-ray showed mild cardiomegaly with minimal peripheral changes right lung new compared to prior study. VQ scan was obtained which showed high probability for PE. In the ED, the patient was hypotensive with blood pressure 96/67 and he was given two liter boluses of normal saline and transferred to [facility] room 521. When seen, the patient remains on 35% ventilatory mask with sats of 96%. His blood pressure improved to 115/61 with a pulse of 80. He denies any nausea, vomiting or abdominal pain. In addition, no history of cough or constitutional symptoms. 12/11 No events overnight. On 5L oxygen with good sats, on heparin drip. Objective Vital Signs Date Time Temp Pulse Resp B/P (MAP) Pulse Ox O2 Delivery O2 Flow Rate FiO2 12/11/17 07:36 95 Nasal Cannula 5.00 12/11/17 06:00 79 12/11/17 04:00 98.1 14 113/60 (77) 12/10/17 17:20 35 Intake and Output 12/11/17 12/11/17 12/12/17 08:00 16:00 00:00 Intake Total 1100 ml Output Total 650 ml Balance 450 ml Result Diagram: 12/11/17 0500 12/11/17 0500 Other Results Laboratory Tests Test 12/10/17 11:15 12/10/17 12:00 12/10/17 17:18 12/10/17 19:26 White Blood Count 15.7 TH/MM3 14.1 TH/MM3 Red Blood Count 4.68 MIL/MM3 3.94 MIL/MM3 Hemoglobin 12.7 GM/DL 11.0 GM/DL Hematocrit 40.0 % 33.4 % Mean Corpuscular Volume 85.4 FL 84.7 FL Mean Corpuscular Hemoglobin 27.1 PG 27.8 PG Mean Corpuscular Hemoglobin Concent 31.7 % 32.8 % Red Cell Distribution Width 16.4 % 16.6 % Platelet Count 491 TH/MM3 348 TH/MM3 Mean Platelet Volume 7.6 FL 7.2 FL Neutrophils (%) (Auto) 71.5 % 91.5 % Lymphocytes (%) (Auto) 17.5 % 5.9 % Monocytes (%) (Auto) 9.5 % 2.4 % Eosinophils (%) (Auto) 1.1 % 0.0 % Basophils (%) (Auto) 0.4 % 0.2 % Neutrophils # (Auto) 11.2 TH/MM3 12.9 TH/MM3 Lymphocytes # (Auto) 2.7 TH/MM3 0.8 TH/MM3 Monocytes # (Auto) 1.5 TH/MM3 0.3 TH/MM3 Eosinophils # (Auto) 0.2 TH/MM3 0.0 TH/MM3 Basophils # (Auto) 0.1 TH/MM3 0.0 TH/MM3 CBC Comment DIFF FINAL DIFF FINAL Differential Comment Prothrombin Time 11.4 SEC Prothromb Time International Ratio 1.1 RATIO Activated Partial Thromboplast Time 30.9 SEC D-Dimer Quantitative (PE/DVT) 4.65 MG/L FEU Blood Urea Nitrogen 28 MG/DL 27 MG/DL Creatinine 1.80 MG/DL 1.69 MG/DL Random Glucose 120 MG/DL 259 MG/DL Total Protein 7.2 GM/DL Albumin 3.0 GM/DL Calcium Level 9.2 MG/DL 8.2 MG/DL Alkaline Phosphatase 115 U/L Aspartate Amino Transf (AST/SGOT) 34 U/L Alanine Aminotransferase (ALT/SGPT) 21 U/L Total Bilirubin 0.8 MG/DL Sodium Level 133 MEQ/L 132 MEQ/L Potassium Level 4.3 MEQ/L 4.8 MEQ/L Chloride Level 99 MEQ/L 101 MEQ/L Carbon Dioxide Level 23.9 MEQ/L 20.9 MEQ/L Anion Gap 10 MEQ/L 10 MEQ/L Estimat Glomerular Filtration Rate 37 ML/MIN 40 ML/MIN Troponin I 0.25 NG/ML 0.21 NG/ML B-Type Natriuretic Peptide 295 PG/ML Lactic Acid Level 2.6 mmol/L 2.1 mmol/L Nasal Screen MRSA (PCR) MRSA NOT DETECTED Test 12/10/17 20:11 12/11/17 01:10 12/11/17 05:00 Activated Partial Thromboplast Time 172.5 SEC 37.8 SEC White Blood Count 18.1 TH/MM3 Red Blood Count 4.17 MIL/MM3 Hemoglobin 11.6 GM/DL Hematocrit 34.8 % Mean Corpuscular Volume 83.4 FL Mean Corpuscular Hemoglobin 27.8 PG Mean Corpuscular Hemoglobin Concent 33.3 % Red Cell Distribution Width 16.4 % Platelet Count 443 TH/MM3 Mean Platelet Volume 7.4 FL Neutrophils (%) (Auto) 85.4 % Lymphocytes (%) (Auto) 8.6 % Monocytes (%) (Auto) 5.9 % Eosinophils (%) (Auto) 0.0 % Basophils (%) (Auto) 0.1 % Neutrophils # (Auto) 15.5 TH/MM3 Lymphocytes # (Auto) 1.6 TH/MM3 Monocytes # (Auto) 1.1 TH/MM3 Eosinophils # (Auto) 0.0 TH/MM3 Basophils # (Auto) 0.0 TH/MM3 CBC Comment DIFF FINAL Differential Comment Blood Urea Nitrogen 27 MG/DL Creatinine 1.69 MG/DL Random Glucose 129 MG/DL Calcium Level 9.0 MG/DL Phosphorus Level 2.3 MG/DL Magnesium Level 1.9 MG/DL Sodium Level 135 MEQ/L Potassium Level 4.3 MEQ/L Chloride Level 103 MEQ/L Carbon Dioxide Level 22.0 MEQ/L Anion Gap 10 MEQ/L Estimat Glomerular Filtration Rate 40 ML/MIN Thyroid Stimulating Hormone 3rd Gen 1.810 uIU/ML Imaging Last Impressions Chest X-Ray 12/10/17 1111 Signed Impressions: Service Date/Time: Sunday, December 10, 2017 11:21 - CONCLUSION: Mild cardiomegaly. Minimal peripheral changes laterally right lung new from comparison study nonspecific. Arben Hirsch MD FACR Lung Scan-VQ Nuclear Medicine 12/10/17 0000 Signed Impressions: Service Date/Time: Sunday, December 10, 2017 14:30 - CONCLUSION: Prominent mismatch defect involving the right upper lung characteristic for pulmonary embolism. This is a high probability for PE. Ric Dolan MD Lower Extremity Ultrasound 12/10/17 0000 Signed Impressions: Service Date/Time: Sunday, December 10, 2017 18:52 - CONCLUSION: 1. Occlusive and nonocclusive deep venous thrombus in the lower extremities bilaterally. Pawan Harrington MD Objective Remarks GENERAL: Patient is 72 yo lying in bed in NAD SKIN: Warm and dry. HEAD: Normocephalic. EYES: No scleral icterus. No injection or drainage. NECK: Supple, trachea midline. No JVD or lymphadenopathy. CARDIOVASCULAR: Regular rate and rhythm without murmurs, gallops, or rubs. RESPIRATORY: Breath sounds equal bilaterally. No accessory muscle use. GASTROINTESTINAL: Abdomen soft, non-tender, nondistended. MUSCULOSKELETAL: No cyanosis, + edema. Neuro: Awake and alert. A/P Assessment and Plan 1. Acute hypoxemic respiratory insufficiency. 2. Pulmonary embolism. 3. Acute kidney injury...improving 4. Mild lactic acidemia..resolving 5. Mild elevation in troponin secondary to PE 6. Leukocytosis 7. Hypertension 8. Diabetes mellitus. 9. Hyperlipidemia. 10. Hypothyroidism. 11. GERD Plan Neuro: Awake and alert. Monitor neuro status and avoid any sedatives. Pulm: Continue with oxygen and maintain sats above 92%. Bronchodilators CV: Monitor HR and BP and maintain MAP>65 mmHg. On ASA 81mg daily Lactic acid 2.1 from 2.6 Monitor troponins, for 2-D echo . Continue with heparin drip per PE protocol. Monitor PTT. : Monitor renal function Is and Os and electrolyte replacement as needed. Avoid any nephrotoxins. Cr: 1.69 from 1.80, on NS@84ml/hr. Will need Phos replacement today GI: On Pepcid 10 mg IV q. 12 for GI prophylaxis. p.o. heart healthy diet ID: Monitor for signs of infections( fever and WBC). Chest x-ray in the ED showed mild cardiomegaly with minimal peripheral changes laterally right lung. Check sputum cx, UA with cx if indicated Heme: Monitor CBC and coags - on heparin drip Endo: SSI with Accu-Chek q. 4-hour for glycemic control. TSH level:1.80 Doppler US LE: Occlusive and nonocclusive DVT in the lower extremities bilaterally. GI prophylaxis with Pepcid and DVT prophylaxis- on Heparin drip l Level 3 David,Alaa MD Dec 11, 2017 08:15
[2017-12-11] MEDS ORDERED: POTASSIUM PHOSPHATE MONOBASIC 500 MG TAB PO PRN (08:30)
[2017-12-11] MEDS ORDERED: POTASSIUM CHLOR 40 MEQ PREMIX 100 ML IV PRN ×2 (08:30)
[2017-12-11] MEDS ORDERED: POTASSIUM PHOSPHATE INJ 30 MMOL in SODIUM CHLOR 0.9% 250 ML INJ 250 ML IV PRN (08:30)
[2017-12-11] MEDS ORDERED: SODIUM PHOSPHATE INJ 30 MMOL in SODIUM CHLOR 0.9% 250 ML INJ 240 ML IV PRN (08:30)
[2017-12-11] MEDS ORDERED: POTASSIUM CHLORIDE 25 MEQ EFFERVESCENT TAB PO PRN (08:30)
[2017-12-11] MEDS ORDERED: MAGNESIUM OXIDE 400 MG TAB PO PRN (08:30)
[2017-12-11] MEDS ORDERED: POTASSIUM CHLOR 20 MEQ PREMIX 100 ML IV PRN ×2 (08:30)
[2017-12-11] MEDS ORDERED: MAGNESIUM SULFATE INJ 4 GM in SODIUM CHLORIDE 0.9% INJ 92 ML IV PRN (08:30)
[2017-12-11] MEDS ORDERED: POTASSIUM PHOSPHATE MONOBASIC 500 MG TAB PO/TUBE PRN (08:30)
[2017-12-11] MEDS ORDERED: MAGNESIUM SULFATE INJ 2 GM in SODIUM CHLORIDE 0.9% INJ 96 ML IV PRN (08:30)
[2017-12-11] MEDS: ASPIRIN EC 81 MG TABEC PO SCH (08:59)
[2017-12-11] MEDS: DOCUSATE SODIUM 50 MG/SENNA 8.6 MG TAB PO SCH ×2 (08:59→20:37)
[2017-12-11] MEDS: FAMOTIDINE 20 MG/2 ML VIAL IV PUSH SCH ×2 (08:59→21:26)
[2017-12-11] MEDS: HEPARIN-D5W 25,000 U/250 ML 250 ML IV PRN (09:05)
[2017-12-11 12:23] LABS: PHOSPHORUS 2.5 MG/DL (2.5-4.9)
[2017-12-11 12:26] LABS: TROPONIN I 0.18 NG/ML (0.02-0.05)
--- NOTE | 2017-12-11 14:36 | EKG ---
Date Performed: 12/10/2017 Time Performed: 11:09:42 PTAGE: 72 years EKG: Undetermined rhythm INDETERMINATE AXIS LOW QRS VOLTAGE IN PRECORDIAL LEADS POSSIBLE RIGHT V ENTRICULAR CONDUCTION DELAY INFERIOR MYOCARDIAL INFARCTION MODERATE T-WAVE ABNORMALITY, CONSIDER ANTE ROLATERAL ISCHEMIA ABNORMAL ECG PREVIOUS TRACING : 04/07/2017 08.15 Largely unchanged from prior tracing. DOCTOR: Carrillo Calvillo Interpretating Date/Time 12/11/2017 14:35:36
[2017-12-12] VITALS (21 sets, daily range): BP systolic 113–152; BP diastolic 58–86; PULSE 74–98; RESP 15–24; TEMP 97.8–98.7; O2SAT 90–100
[2017-12-12] MEDS: INSULIN NovoLIN REGULAR SUPPLEMENTAL SCALE SQ SCH ×6 (01:44→21:53)
[2017-12-12] MEDS: HEPARIN-D5W 25,000 U/250 ML 250 ML IV PRN ×2 (01:48→20:02)
[2017-12-12] MEDS: ACETAMINOPHEN/HYDROcodone 325 MG/10 MG TAB PO PRN ×4 (03:10→21:48)
[2017-12-12] MEDS: CHLORHEXIDINE GLUCONATE 2 % 1 PACK (2 CLOTHS) TOP SCH (04:00)
[2017-12-12] MEDS: RESP: ALBUTEROL 2.5 MG/IPRATROPIUM 0.5 MG NEB (SCH) NEB ×6 (04:00→22:53)
[2017-12-12] MEDS: SODIUM CHLOR 0.9% 1000 ML INJ 1,000 ML IV SCH ×2 (04:15→21:28)
[2017-12-12] MEDS: FAMOTIDINE 20 MG/2 ML VIAL IV PUSH SCH ×2 (08:34→21:27)
[2017-12-12] MEDS: ASPIRIN EC 81 MG TABEC PO SCH (08:34)
[2017-12-12] MEDS: DOCUSATE SODIUM 50 MG/SENNA 8.6 MG TAB PO SCH ×2 (08:35→21:00)
[2017-12-12 12:13] LABS: AUTOMATED NEUTROPHIL # 8.9 TH/MM3 (1.8-7.7); BASOPHIL % 0.3 % (0.0-2.0); EOSINOPHIL # 0.1 TH/MM3 (0-0.4); EOSINOPHIL % 0.6 % (0.0-4.0); HEMATOCRIT 29.5 % (39.0-51.0); LYMPH % 16.7 % (9.0-44.0); MEAN CELL VOLUME 82.8 FL (80.0-100.0); MEAN CORPUSCULAR HEMOGLOBIN 28.2 PG (27.0-34.0); MEAN PLATELET VOLUME 7.2 FL (7.0-11.0); MONO % 6.7 % (0.0-8.0); MONOCYTE # 0.8 TH/MM3 (0-0.9); NEUT % 75.7 % (16.0-70.0); PLATELET COUNT 372 TH/MM3 (150-450); RED BLOOD COUNT 3.56 MIL/MM3 (4.50-5.90); RED CELL DISTRIBUTION WIDTH 16.7 % (11.6-17.2); WHITE BLOOD COUNT 11.7 TH/MM3 (4.0-11.0)
[2017-12-12 12:19] LABS: BICARBONATE 21.5 MEQ/L (21.0-32.0); CALCIUM 8.6 MG/DL (8.5-10.1); CREATININE 1.21 MG/DL (0.60-1.30); PHOSPHORUS 2.1 MG/DL (2.5-4.9)
--- NOTE | 2017-12-12 14:06 | ECHRPT ---
Indication: PE, + TROP CONCLUSIONS Technically difficult study. The left ventricular systolic function is normal with an estimated ejection fraction in the range of 55-60%. Doppler parameters are consistent with impaired left ventricular relaxtion (grade 1 diastolic dysfun ction). The right ventriclar size is upper limits of normal. The right ventricular systoilc function is mildly decreased. There is mild tricuspid valve regurgitation. Trivial pulmonary valve regurgitation. There is estimated moderate pulmonary hypertension present (range 50-60 mmHg). BP: 113 / 60 HR: 75 Rhythm: MEASUREMENTS (Male / Female) Normal Values Technical Quality:Technically difficult study 2D ECHO LV Diastolic Diameter PLAX 5.0 cm 4.2 - 5.9 / 3.9 - 5.3 cm LV Systolic Diameter PLAX 3.5 cm IVS Diastolic Thickness 1.1 cm 0.6 - 1.0 / 0.6 - 0.9 cm LVPW Diastolic Thickness 0.9 cm 0.6 - 1.0 / 0.6 - 0.9 cm LV Relative Wall Thickness 0.4 M-MODE Aortic Root Diameter MM 3.7 cm AV Cusp Separation MM 2.3 cm DOPPLER Mitral E Point Velocity 62.7 cm/s Mitral A Point Velocity 97.2 cm/s Mitral E to A Ratio 0.6 TR Peak Velocity 317.0 cm/s TR Peak Gradient 40.2 mmHg FINDINGS LEFT VENTRICLE Normal left ventricular size. Wall thickness is normal. The left ventricular systolic function is normal with an estimated ejection fraction in the range of 55-60%. There was limited left ventricular wall motion assessment due to poor endocardial visualization. Doppler parameters are consistent with impaired left ventricular relaxtion (grade 1 diastolic dysfun ction). RIGHT VENTRICLE The right ventriclar size is upper limits of normal. The right ventricular systoilc function is mildly decreased. LEFT ATRIUM The left atrial size is normal. RIGHT ATRIUM The right atrial size is normal. ATRIAL SEPTUM Normal atrial septal thickness. AORTA The aortic root and proximal ascending aorta are normal in size on limited imaging. MITRAL VALVE Structurally normal mitral valve. No mitral valve stenosis or regurgitation. AORTIC VALVE Trileaflet aortic valve. No aortic valve stenosis or regurgitation. TRICUSPID VALVE Structurally normal tricuspid valve. No tricuspid valve stenosis. There is mild tricuspid valve regurgitation. There is estimated moderate pulmonary hypertension present (range 50-60 mmHg). PULMONARY VALVE The pulmonary valve is not well visualized. Trivial pulmonary valve regurgitation. VESSELS The inferior vena cava is normal in size. PERICARDIUM No pericardial effusion. Deonte Weaver DO (Electronically Signed) Final Date:12 December 2017 14:06
[2017-12-12] MEDS ORDERED: DOCUSATE SODIUM 100 MG CAP PO PRN (23:15)
[2017-12-12] MEDS ORDERED: ACETAMINOPHEN/HYDROcodone 325 MG/10 MG TAB PO PRN (23:15)
--- NOTE | 2017-12-12 23:34 | RADRPT ---
EXAM DATE/TIME: 12/12/2017 23:09 [facility] COMPARISON: CHEST SINGLE AP, December 10, 2017, 11:21. INDICATIONS : Short of breath. MEDICAL HISTORY : Cardiovascular disease. Hypertension. GERD, diabetes SURGICAL HISTORY : Fusion, thoracic. ENCOUNTER: Subsequent ACUITY: 2 days PAIN SCORE: 0/10 LOCATION: Bilateral chest FINDINGS: A single view of the chest demonstrates improvement in bilateral airspace disease since December 10. H eart size normal. Tortuous aorta. Previous fusion thoracic spine. CONCLUSION: 1. No acute findings. Improving bilateral airspace disease. No new infiltrate. Pawan Harrington MD on December 12, 2017 at 23:30 Board Certified Radiologist. This report was verified electronically.
--- NOTE | 2017-12-12 23:48 | HHI.CCPN ---
Subjective Remarks/Hospital Course Patient is a 72-year-old male with multiple comorbidities which include hypertension, diabetes mellitus, hyperlipidemia, hypothyroidism, gastroesophageal reflux disease, chronic edema of left lower extremity who presented to [place] ED with one week history of progressive worsening shortness of breath. The patient states that his dyspnea is worse with exertion and improved with rest. He also noticed increased swelling in his left leg compared to the right lower extremity. He denies any history of COPD or CHF. On arrival to the ED, the patient was tachycardiac and hypoxic. He was placed on 35% ventilatory mask with improvements of his saturation. His laboratory data significant for elevated D-dimer 4.65, mild elevation troponin 0.25 and lactic acid of 2.6. In addition, he had some acute kidney injury with creatinine level of 1.80. Chest x-ray showed mild cardiomegaly with minimal peripheral changes right lung new compared to prior study. VQ scan was obtained which showed high probability for PE. In the ED, the patient was hypotensive with blood pressure 96/67 and he was given two liter boluses of normal saline and transferred to [facility] room 521. When seen, the patient remains on 35% ventilatory mask with sats of 96%. His blood pressure improved to 115/61 with a pulse of 80. He denies any nausea, vomiting or abdominal pain. In addition, no history of cough or constitutional symptoms. 12/11 No events overnight. On 5L oxygen with good sats, on heparin drip. Subjective 12/12: Desaturated earlier this evening currently on 5 L nasal cannula. Denies shortness of breath. Positive for nonproductive cough. Denies chest pain. Has chronic pain so resuming home pain regimen. Objective Vital Signs Date Time Temp Pulse Resp B/P (MAP) Pulse Ox O2 Delivery O2 Flow Rate FiO2 12/12/17 22:00 94 12/12/17 20:33 97 Nasal Cannula 3.00 12/12/17 20:00 98.7 17 150/82 (104) 12/10/17 17:20 35 Intake and Output 12/12/17 12/12/17 12/13/17 08:00 16:00 00:00 Intake Total 1490 ml 700 ml Output Total 675 ml 500 ml Balance 815 ml 200 ml Result Diagram: 12/12/17 1155 12/12/17 1155 Other Results Microbiology Date/Time Source Procedure Growth Status 12/10/17 12:00 Blood Peripheral Aerobic Blood Culture - Preliminary NO GROWTH IN 2 DAYS Resulted 12/10/17 12:00 Blood Peripheral Anaerobic Blood Culture - Preliminary NO GROWTH IN 2 DAYS Resulted 12/10/17 11:15 Nasal Washing Influenza Types A,B Antigen (CANDICE) - Final NEGATIVE FOR FLU A AND B ANTIGEN.... Complete Imaging Last Impressions Chest X-Ray 12/10/17 1111 Signed Impressions: Service Date/Time: Sunday, December 10, 2017 11:21 - CONCLUSION: Mild cardiomegaly. Minimal peripheral changes laterally right lung new from comparison study nonspecific. Arben Hirsch MD FACR Lung Scan-VQ Nuclear Medicine 12/10/17 0000 Signed Impressions: Service Date/Time: Sunday, December 10, 2017 14:30 - CONCLUSION: Prominent mismatch defect involving the right upper lung characteristic for pulmonary embolism. This is a high probability for PE. Ric Dolan MD Lower Extremity Ultrasound 12/10/17 0000 Signed Impressions: Service Date/Time: Sunday, December 10, 2017 18:52 - CONCLUSION: 1. Occlusive and nonocclusive deep venous thrombus in the lower extremities bilaterally. Pawan Harrington MD Objective Remarks GENERAL: 72-year-old male resting in bed in no acute distress SKIN: Warm and dry. HEAD: Normocephalic. EYES: No scleral icterus. No injection or drainage. NECK: Supple, trachea midline. No JVD or lymphadenopathy. CARDIOVASCULAR: Regular rate and rhythm without murmurs, gallops, or rubs. RESPIRATORY: Breath sounds equal bilaterally. No accessory muscle use. GASTROINTESTINAL: Abdomen soft, non-tender, nondistended. MUSCULOSKELETAL: No cyanosis, + edema. Neuro: Awake and alert. A/P Assessment and Plan Plan Neuro/Psych: Chronic opiate use Peripheral neuropathy slept left foot Depression Awake and alert. Monitor neuro status and avoid any sedatives. Resume duloxetine 30 mill grams daily Resume pregabalin acute mill grams twice a day Resume Neurontin 67 mg 3 times a day Diclofenac 50 mill grams daily Resume morphine sulfate extended release 50 mill grams twice a day with hydrocodone/acetaminophen 10/325 one tab every 4 hours. Pain Pulm: Likely right upper lobe pulmonary embolism Continue with oxygen and maintain sats above 92%. Bronchodilators VQ scan revealed high probability right upper lobe pulmonary embolism CV: Hypertension Dyslipidemia Moderate pulmonary hypertension Elevated troponin Monitor HR and BP and maintain MAP>65 mmHg. On ASA 81mg daily Lactic acid 2.1 from 2.6 2-D echo ejection fraction 55-60%. Grade 1 diastolic dysfunction. RV systolic function mildly decreased. Size upper limits normal. Mild TR. Moderate pulmonary hypertension Continue with heparin drip per PE protocol. Monitor PTT. Continue fenofibrate 54 mill grams daily atorvastatin 10 mg at night for dyslipidemia Holding irbesartan 150 mg daily resume clinically indicated : Monitor renal function Is and Os and electrolyte replacement as needed. Avoid any nephrotoxins. Cr: 1.69 from 1.80, on NS@84ml/hr. Will need Phos replacement today GI: Gastroesophageal reflux disease On famotidine 10 mg IV q. 12 for GI prophylaxis. p.o. heart healthy diet ID: Monitor for signs of infections( fever and WBC). Chest x-ray in the ED showed mild cardiomegaly with minimal peripheral changes laterally right lung. Check sputum cx, UA with cx if indicated Heme: Leukocytosis Normocytic anemia Lower extremity DVT Doppler US LE: Right peroneal occlusive thrombus, right popliteal nonocclusive thrombus. Left occlusive thrombus starting at the bifurcation the superficial and deep femoral vein and examined to the distal superficial femoral vein. Nonocclusive thrombus the posterior tibial vein. Monitor CBC and coags - on heparin drip Endo: Diabetes mellitus Hypothyroidism Gout T allopurinol 100 mg daily SSI with Accu-Chek q. before meals/at bedtime for glycemic control. TSH level:1.80 date continue levothyroxine 100 g daily Holding metformin 850 mg twice a day with 1700 milligrams at night Holding pioglitazone 30 mg daily and nateglinide 120 milligrams daily MSK: Osteoarthritis PT evaluate and treat GI prophylaxis with famotidine and DVT prophylaxis- on Heparin drip l Level 2 follow-up Juan Alegria MD Dec 12, 2017 23:48
[2017-12-13] VITALS (21 sets, daily range): BP systolic 113–168; BP diastolic 62–104; PULSE 74–99; RESP 14–31; TEMP 97.7–99.1; O2SAT 89–100
[2017-12-13] MEDS: CARISOPRODOL 350 MG TAB PO SCH ×4 (00:28→17:29)
[2017-12-13] MEDS: RESP: ALBUTEROL 2.5 MG/IPRATROPIUM 0.5 MG NEB (SCH) NEB ×6 (03:49→23:39)
[2017-12-13] MEDS: CHLORHEXIDINE GLUCONATE 2 % 1 PACK (2 CLOTHS) TOP SCH (04:00)
[2017-12-13 05:05] LABS: AUTOMATED NEUTROPHIL # 7.3 TH/MM3 (1.8-7.7); BASOPHIL # 0.1 TH/MM3 (0-0.2); BASOPHIL % 0.6 % (0.0-2.0); EOSINOPHIL # 0.3 TH/MM3 (0-0.4); EOSINOPHIL % 3.1 % (0.0-4.0); HEMATOCRIT 30.7 % (39.0-51.0); HEMOGLOBIN 10.6 GM/DL (13.0-17.0); LYMPH % 20.6 % (9.0-44.0); LYMPHOCYTE # 2.2 TH/MM3 (1.0-4.8); MEAN CORPUSCULAR HEMOGLOBIN 28.3 PG (27.0-34.0); MEAN CORPUSCULAR HGB CONC 34.5 % (32.0-36.0); MEAN PLATELET VOLUME 7.5 FL (7.0-11.0); MONO % 5.9 % (0.0-8.0); MONOCYTE # 0.6 TH/MM3 (0-0.9); NEUT % 69.8 % (16.0-70.0); PLATELET COUNT 421 TH/MM3 (150-450); RED BLOOD COUNT 3.75 MIL/MM3 (4.50-5.90); RED CELL DISTRIBUTION WIDTH 16.5 % (11.6-17.2); WHITE BLOOD COUNT 10.5 TH/MM3 (4.0-11.0)
[2017-12-13 05:17] LABS: ALBUMIN 2.8 GM/DL (3.4-5.0); AST (GOT) 33 U/L (15-37); BICARBONATE 21.2 MEQ/L (21.0-32.0); BLOOD UREA NITROGEN 10 MG/DL (7-18); CALCIUM 9.2 MG/DL (8.5-10.1); CHLORIDE 106 MEQ/L (98-107); CREATININE 1.19 MG/DL (0.60-1.30); GLOMERULAR FILTRATION RATE 60 ML/MIN (>89); GLUCOSE,RANDOM 121 MG/DL (74-106); MAGNESIUM 1.6 MG/DL (1.5-2.5); SODIUM (NA) 138 MEQ/L (136-145)
[2017-12-13 05:22] LABS: ALKALINE PHOSPHATASE 104 U/L (45-117); ALT (GPT) 28 U/L (12-78); PHOSPHORUS 2.1 MG/DL (2.5-4.9); TOTAL BILIRUBIN ADULT 0.6 MG/DL (0.2-1.0); TOTAL PROTEIN 6.5 GM/DL (6.4-8.2)
[2017-12-13] MEDS: LEVOTHYROXINE SODIUM 100 MCG TAB PO SCH (05:51)
[2017-12-13] MEDS: INSULIN NovoLIN REGULAR SUPPLEMENTAL SCALE SQ SCH ×4 (08:00→21:38)
[2017-12-13] MEDS: ASPIRIN EC 81 MG TABEC PO SCH (08:26)
[2017-12-13] MEDS: FUROSEMIDE 40 MG TAB PO SCH (08:26)
[2017-12-13] MEDS: CYANOCOBALAMIN 1,000 MCG TAB PO SCH (08:27)
[2017-12-13] MEDS: MORPHINE SULFATE 15 MG CONTROLLED RELEASE TAB PO SCH ×2 (08:27→21:06)
[2017-12-13] MEDS: GABAPENTIN 300 MG CAP PO SCH ×3 (08:27→17:29)
[2017-12-13] MEDS: DOCUSATE SODIUM 50 MG/SENNA 8.6 MG TAB PO SCH ×2 (08:27→21:07)
[2017-12-13] MEDS: MAGNESIUM OXIDE 400 MG TAB PO SCH (08:27)
[2017-12-13] MEDS: CHOLECALCIFEROL (VIT D3) 5000 UNIT CAP PO SCH ×2 (08:28→09:00)
[2017-12-13] MEDS: ASCORBIC ACID 500 MG TAB PO SCH (08:28)
[2017-12-13] MEDS: ALLOPURINOL 100 MG TAB PO SCH (08:28)
[2017-12-13] MEDS: CHOLECALCIFEROL (VIT D3) 1000 UNIT TAB PO SCH (08:28)
[2017-12-13] MEDS: DULoxetine HCl DR 30 MG CAP PO SCH (08:28)
[2017-12-13] MEDS ORDERED: CHOLECALCIFEROL (VIT D3) 5000 UNIT CAP PO SCH (09:00)
[2017-12-13] MEDS: PREGABALIN 25 MG CAP PO SCH ×3 (09:54→17:29)
[2017-12-13] MEDS: FENOFIBRATE 48 MG TAB PO SCH (09:54)
[2017-12-13] MEDS: methylPREDNISolone 4 MG TAB PO SCH (09:54)
--- NOTE | 2017-12-13 14:16 | HHI.CCPN ---
Subjective Remarks/Hospital Course Patient is a 72-year-old male with multiple comorbidities which include hypertension, diabetes mellitus, hyperlipidemia, hypothyroidism, gastroesophageal reflux disease, chronic edema of left lower extremity who presented to [place] ED with one week history of progressive worsening shortness of breath. The patient states that his dyspnea is worse with exertion and improved with rest. He also noticed increased swelling in his left leg compared to the right lower extremity. He denies any history of COPD or CHF. On arrival to the ED, the patient was tachycardiac and hypoxic. He was placed on 35% ventilatory mask with improvements of his saturation. His laboratory data significant for elevated D-dimer 4.65, mild elevation troponin 0.25 and lactic acid of 2.6. In addition, he had some acute kidney injury with creatinine level of 1.80. Chest x-ray showed mild cardiomegaly with minimal peripheral changes right lung new compared to prior study. VQ scan was obtained which showed high probability for PE. In the ED, the patient was hypotensive with blood pressure 96/67 and he was given two liter boluses of normal saline and transferred to [facility] room 521. When seen, the patient remains on 35% ventilatory mask with sats of 96%. His blood pressure improved to 115/61 with a pulse of 80. He denies any nausea, vomiting or abdominal pain. In addition, no history of cough or constitutional symptoms. 12/11 No events overnight. On 5L oxygen with good sats, on heparin drip. 12/12: Desaturated earlier this evening currently on 5 L nasal cannula. Denies shortness of breath. Positive for nonproductive cough. Denies chest pain. Has chronic pain so resuming home pain regimen. Subjective 12/13: Resting comfortably in bed in no acute distress. On 6 L nasal cannula. Positive for nonproductive cough. Denies chest pain. Home medications resumed overnight/early this morning Objective Vital Signs Date Time Temp Pulse Resp B/P (MAP) Pulse Ox O2 Delivery O2 Flow Rate FiO2 12/13/17 11:15 80 Simple Mask 8.00 12/13/17 10:00 93 12/13/17 09:00 24 168/79 (108) 12/13/17 08:00 99.1 12/10/17 17:20 35 Intake and Output 12/13/17 12/13/17 12/14/17 08:00 16:00 00:00 Intake Total 240 ml 250 ml Output Total 900 ml Balance -660 ml 250 ml Result Diagram: 12/13/17 0412 12/13/17 0412 Other Results Microbiology Date/Time Source Procedure Growth Status 12/10/17 12:00 Blood Peripheral Aerobic Blood Culture - Preliminary NO GROWTH IN 3 DAYS Resulted 12/10/17 12:00 Blood Peripheral Anaerobic Blood Culture - Preliminary NO GROWTH IN 3 DAYS Resulted 12/10/17 11:15 Nasal Washing Influenza Types A,B Antigen (CANDICE) - Final NEGATIVE FOR FLU A AND B ANTIGEN.... Complete Imaging Last Impressions Chest X-Ray 12/12/17 0000 Signed Impressions: Service Date/Time: Tuesday, December 12, 2017 23:09 - CONCLUSION: 1. No acute findings. Improving bilateral airspace disease. No new infiltrate. Pawan Harrington MD Lung Scan-V Nuclear Medicine 12/10/17 0000 Signed Impressions: Service Date/Time: Sunday, December 10, 2017 14:30 - CONCLUSION: Prominent mismatch defect involving the right upper lung characteristic for pulmonary embolism. This is a high probability for PE. Ric Dolan MD Lower Extremity Ultrasound 12/10/17 0000 Signed Impressions: Service Date/Time: Sunday, December 10, 2017 18:52 - CONCLUSION: 1. Occlusive and nonocclusive deep venous thrombus in the lower extremities bilaterally. Pawan Harrington MD Objective Remarks GENERAL: 72-year-old male resting in bed in no acute distress SKIN: Warm and dry. HEAD: Normocephalic. EYES: No scleral icterus. No injection or drainage. NECK: Supple, trachea midline. No JVD or lymphadenopathy. CARDIOVASCULAR: Regular rate and rhythm without murmurs, gallops, or rubs. RESPIRATORY: Breath sounds equal bilaterally. No accessory muscle use. GASTROINTESTINAL: Abdomen soft, non-tender, nondistended. MUSCULOSKELETAL: No cyanosis, + edema. Neuro: Awake and alert. A/P Assessment and Plan Neuro/Psych: Chronic opiate use Peripheral neuropathy slept left foot Depression Awake and alert. Monitor neuro status and avoid any sedatives. Resume duloxetine 30 mill grams daily Resume pregabalin 50 mill grams twice a day Resume Neurontin 600 mg 3 times a day Diclofenac 50 mill grams daily currently on hold Resume morphine sulfate extended release 15 mill grams twice a day with hydrocodone/acetaminophen 10/325 one tab every 4 hours as needed Pain Pulm: Likely right upper lobe pulmonary embolism on VQ scan Continue with oxygen and maintain sats above 92%. Currently on 6 L Bronchodilators with albuterol/ipratropium aerosols every 4 hours with albuterol aerosols every 2 hours. Dyspnea VQ scan revealed high probability right upper lobe pulmonary embolism Chest X-ray ordered for am 12/14 CV: Hypertension Dyslipidemia Moderate pulmonary hypertension Elevated troponin Monitor HR and BP and maintain MAP>65 mmHg. On ASA 81mg daily Lactic acid likely is cleared 2-D echo ejection fraction 55-60%. Grade 1 diastolic dysfunction. RV systolic function mildly decreased. Size upper limits normal. Mild TR. Moderate pulmonary hypertension Continue with heparin drip per PE protocol. Monitor PTT. Continue fenofibrate 54 mill grams daily atorvastatin 10 mg at night for dyslipidemia Holding irbesartan 150 mg daily resume clinically indicated Renal/: Monitor renal function Is and Os and electrolyte replacement as needed. Avoid any nephrotoxins. Creatinine improving. Will need Phos replacement today with Neutra-Phos 1 g 1 now GI: Gastroesophageal reflux disease On famotidine 10 mg q. 12 for GI prophylaxis. p.o. heart healthy diet ID: Monitor for signs of infections( fever and WBC). Chest x-ray in the ED showed mild cardiomegaly with minimal peripheral changes laterally right lung. Check sputum cx, UA with cx if indicated Heme: Normocytic anemia Lower extremity DVT Doppler US LE: Right peroneal occlusive thrombus, right popliteal nonocclusive thrombus. Left occlusive thrombus starting at the bifurcation the superficial and deep femoral vein and examined to the distal superficial femoral vein. Nonocclusive thrombus the posterior tibial vein. Monitor CBC and coags - on heparin drip Endo: Diabetes mellitus Hypothyroidism Gout Allopurinol 100 mg daily SSI with Accu-Chek q. before meals/at bedtime for glycemic control. TSH level:1.80 date continue levothyroxine 100 g daily Holding metformin 850 mg twice a day with 1700 milligrams at night Holding pioglitazone 30 mg daily and nateglinide 120 milligrams daily MSK: Osteoarthritis PT evaluate and treat GI prophylaxis with famotidine and DVT prophylaxis- on Heparin drip l Level 2 follow-up Juan Alegria MD Dec 13, 2017 14:16
[2017-12-13] MEDS ORDERED: RESP: ALBUTEROL 2.5 MG/3 ML NEB (PRN) NEB (14:30)
[2017-12-13] MEDS ORDERED: POTASSIUM PHOSPHATE/SODIUM PHOSPHATE 250 MG TAB PO ONE (14:30)
[2017-12-13] MEDS: HEPARIN-D5W 25,000 U/250 ML 250 ML IV PRN (15:31)
[2017-12-13] MEDS: ATORVASTATIN 10 MG TAB PO SCH (21:05)
[2017-12-14] VITALS (18 sets, daily range): BP systolic 105–141; BP diastolic 59–83; PULSE 75–117; RESP 11–22; TEMP 97.7–98.4; O2SAT 90–98
[2017-12-14] MEDS: CARISOPRODOL 350 MG TAB PO SCH ×5 (00:27→22:03)
[2017-12-14] MEDS: CHLORHEXIDINE GLUCONATE 2 % 1 PACK (2 CLOTHS) TOP SCH ×2 (01:31→22:03)
--- NOTE | 2017-12-14 03:51 | RADRPT ---
EXAM DATE/TIME: 12/14/2017 01:47 [facility] COMPARISON: No previous studies available for comparison. INDICATIONS : Short of breath. MEDICAL HISTORY : Cardiovascular disease. Hypertension. GERD, diabetes SURGICAL HISTORY : Fusion, thoracic. ENCOUNTER: Subsequent ACUITY: 3 days PAIN SCORE: 0/10 LOCATION: Bilateral chest FINDINGS: A single view of the chest demonstrates previous fixation thoracic spine. Cardiomegaly with tortuous aorta. Basal atelectasis. No effusion. No pneumothorax. CONCLUSION: 1. Minimal basal atelectasis. Previous fusion mid thoracic spine. Pawan Harrington MD on December 14, 2017 at 3:48 Board Certified Radiologist. This report was verified electronically.
[2017-12-14] MEDS: RESP: ALBUTEROL 2.5 MG/IPRATROPIUM 0.5 MG NEB (SCH) NEB ×5 (04:34→19:34)
[2017-12-14] MEDS: LEVOTHYROXINE SODIUM 100 MCG TAB PO SCH (05:27)
[2017-12-14 05:37] LABS: HEMATOCRIT 31.8 % (39.0-51.0); HEMOGLOBIN 10.5 GM/DL (13.0-17.0); MEAN CELL VOLUME 82.8 FL (80.0-100.0); MEAN CORPUSCULAR HEMOGLOBIN 27.5 PG (27.0-34.0); MEAN CORPUSCULAR HGB CONC 33.2 % (32.0-36.0); MEAN PLATELET VOLUME 7.2 FL (7.0-11.0); PLATELET COUNT 383 TH/MM3 (150-450); RED BLOOD COUNT 3.84 MIL/MM3 (4.50-5.90); RED CELL DISTRIBUTION WIDTH 16.7 % (11.6-17.2); WHITE BLOOD COUNT 9.4 TH/MM3 (4.0-11.0)
[2017-12-14 06:10] LABS: BICARBONATE 24.7 MEQ/L (21.0-32.0); CALCIUM 8.8 MG/DL (8.5-10.1); CREATININE 1.06 MG/DL (0.60-1.30)
[2017-12-14 06:16] LABS: PHOSPHORUS 4.1 MG/DL (2.5-4.9)
--- NOTE | 2017-12-14 06:52 | HHI.CCPN ---
Subjective Remarks/Hospital Course Patient is a 72-year-old male with multiple comorbidities which include hypertension, diabetes mellitus, hyperlipidemia, hypothyroidism, gastroesophageal reflux disease, chronic edema of left lower extremity who presented to [place] ED with one week history of progressive worsening shortness of breath. The patient states that his dyspnea is worse with exertion and improved with rest. He also noticed increased swelling in his left leg compared to the right lower extremity. He denies any history of COPD or CHF. On arrival to the ED, the patient was tachycardiac and hypoxic. He was placed on 35% ventilatory mask with improvements of his saturation. His laboratory data significant for elevated D-dimer 4.65, mild elevation troponin 0.25 and lactic acid of 2.6. In addition, he had some acute kidney injury with creatinine level of 1.80. Chest x-ray showed mild cardiomegaly with minimal peripheral changes right lung new compared to prior study. VQ scan was obtained which showed high probability for PE. In the ED, the patient was hypotensive with blood pressure 96/67 and he was given two liter boluses of normal saline and transferred to [facility] room 521. When seen, the patient remains on 35% ventilatory mask with sats of 96%. His blood pressure improved to 115/61 with a pulse of 80. He denies any nausea, vomiting or abdominal pain. In addition, no history of cough or constitutional symptoms. 12/11 No events overnight. On 5L oxygen with good sats, on heparin drip. 12/12: Desaturated earlier this evening currently on 5 L nasal cannula. Denies shortness of breath. Positive for nonproductive cough. Denies chest pain. Has chronic pain so resuming home pain regimen. Subjective 12/13: Resting comfortably in bed in no acute distress. On 6 L nasal cannula. Positive for nonproductive cough. Denies chest pain. Home medications resumed overnight/early this morning 12/14 Patient is lying in bed in NAD. On Heparin drip. Afebrile. On 4L oxygen. Objective Vital Signs Date Time Temp Pulse Resp B/P (MAP) Pulse Ox O2 Delivery O2 Flow Rate FiO2 12/14/17 06:00 85 12/14/17 04:00 98.2 15 134/79 (97) 94 12/13/17 23:39 Nasal Cannula 4.00 12/10/17 17:20 35 Intake and Output 12/14/17 12/14/17 12/15/17 08:00 16:00 00:00 Intake Total 100 ml Output Total 400 ml Balance -300 ml Result Diagram: 12/14/17 0450 12/14/17 0450 Other Results Laboratory Tests Test 12/13/17 15:02 12/13/17 20:58 12/14/17 04:50 Activated Partial Thromboplast Time 43.0 SEC 46.4 SEC 49.4 SEC White Blood Count 9.4 TH/MM3 Red Blood Count 3.84 MIL/MM3 Hemoglobin 10.5 GM/DL Hematocrit 31.8 % Mean Corpuscular Volume 82.8 FL Mean Corpuscular Hemoglobin 27.5 PG Mean Corpuscular Hemoglobin Concent 33.2 % Red Cell Distribution Width 16.7 % Platelet Count 383 TH/MM3 Mean Platelet Volume 7.2 FL Blood Urea Nitrogen 9 MG/DL Creatinine 1.06 MG/DL Random Glucose 82 MG/DL Calcium Level 8.8 MG/DL Phosphorus Level 4.1 MG/DL Sodium Level 139 MEQ/L Potassium Level 3.8 MEQ/L Chloride Level 106 MEQ/L Carbon Dioxide Level 24.7 MEQ/L Anion Gap 8 MEQ/L Estimat Glomerular Filtration Rate 68 ML/MIN Imaging Last Impressions Chest X-Ray 12/14/17 0600 Signed Impressions: Service Date/Time: Thursday, December 14, 2017 01:47 - CONCLUSION: 1. Minimal basal atelectasis. Previous fusion mid thoracic spine. Pawan Harrington MD Lung Scan- Nuclear Medicine 12/10/17 0000 Signed Impressions: Service Date/Time: Sunday, December 10, 2017 14:30 - CONCLUSION: Prominent mismatch defect involving the right upper lung characteristic for pulmonary embolism. This is a high probability for PE. Ric Dolan MD Lower Extremity Ultrasound 12/10/17 0000 Signed Impressions: Service Date/Time: Sunday, December 10, 2017 18:52 - CONCLUSION: 1. Occlusive and nonocclusive deep venous thrombus in the lower extremities bilaterally. Pawan Harrington MD Objective Remarks GENERAL: 72-year-old male resting in bed in no acute distress SKIN: Warm and dry. HEAD: Normocephalic. EYES: No scleral icterus. No injection or drainage. NECK: Supple, trachea midline. No JVD or lymphadenopathy. CARDIOVASCULAR: Regular rate and rhythm without murmurs, gallops, or rubs. RESPIRATORY: Breath sounds equal bilaterally. No accessory muscle use. GASTROINTESTINAL: Abdomen soft, non-tender, nondistended. MUSCULOSKELETAL: No cyanosis, + edema. Neuro: Awake and alert. A/P Assessment and Plan Neuro/Psych: Chronic opiate use Peripheral neuropathy slept left foot Depression Awake and alert. Monitor neuro status and avoid any sedatives. On duloxetine 30 mill grams daily, pregabalin 50 mill grams twice a day Neurontin 600 mg 3 times a day Diclofenac 50 mill grams daily currently on hold On morphine sulfate extended release 15 mill grams twice a day with hydrocodone/ acetaminophen 10/325 one tab every 4 hours as needed Pain Pulm: Likely right upper lobe pulmonary embolism on VQ scan Continue with oxygen and maintain sats above 92%. Currently on 6 L Bronchodilators with albuterol/ipratropium aerosols every 4 hours with albuterol aerosols every 2 hours. Dyspnea VQ scan revealed high probability right upper lobe pulmonary embolism CXR today minimal basilar atelectasis CV: Hypertension Dyslipidemia Moderate pulmonary hypertension Elevated troponin Monitor HR and BP and maintain MAP>65 mmHg. On ASA 81mg daily Lactic acid likely is cleared 2-D echo ejection fraction 55-60%. Grade 1 diastolic dysfunction. RV systolic function mildly decreased. Size upper limits normal. Mild TR. Moderate pulmonary hypertension Continue with heparin drip per PE protocol. Monitor PTT. Continue fenofibrate 54 mill grams daily atorvastatin 10 mg at night for dyslipidemia Renal/: Monitor renal function Is and Os and electrolyte replacement as needed. Avoid any nephrotoxins. GI: Gastroesophageal reflux disease On famotidine 10 mg q. 12 for GI prophylaxis. p.o. heart healthy diet ID: Monitor for signs of infections( fever and WBC). Nasal washing 12/10 negative for Influenza Heme: Normocytic anemia Lower extremity DVT Doppler US LE: Right peroneal occlusive thrombus, right popliteal nonocclusive thrombus. Left occlusive thrombus starting at the bifurcation the superficial and deep femoral vein and examined to the distal superficial femoral vein. Nonocclusive thrombus the posterior tibial vein. Monitor CBC and coags - on heparin drip Endo: Diabetes mellitus Hypothyroidism Gout Allopurinol 100 mg daily SSI with Accu-Chek q. before meals/at bedtime for glycemic control. TSH level:1.80 date continue levothyroxine 100 g daily MSK: Osteoarthritis PT evaluate and treat GI prophylaxis with famotidine and DVT prophylaxis- on Heparin drip l Level 2 follow-up Clementine Hernandez MD Dec 14, 2017 06:52
[2017-12-14] MEDS: INSULIN NovoLIN REGULAR SUPPLEMENTAL SCALE SQ SCH ×4 (08:00→20:47)
[2017-12-14] MEDS: PREGABALIN 25 MG CAP PO SCH ×3 (08:21→17:15)
[2017-12-14] MEDS: DULoxetine HCl DR 30 MG CAP PO SCH (08:21)
[2017-12-14] MEDS: ASPIRIN EC 81 MG TABEC PO SCH (08:21)
[2017-12-14] MEDS: FUROSEMIDE 40 MG TAB PO SCH (08:21)
[2017-12-14] MEDS: DOCUSATE SODIUM 50 MG/SENNA 8.6 MG TAB PO SCH ×2 (08:22→20:46)
[2017-12-14] MEDS: methylPREDNISolone 4 MG TAB PO SCH (08:22)
[2017-12-14] MEDS: GABAPENTIN 300 MG CAP PO SCH ×3 (08:22→17:15)
[2017-12-14] MEDS: MAGNESIUM OXIDE 400 MG TAB PO SCH (08:22)
[2017-12-14] MEDS: MORPHINE SULFATE 15 MG CONTROLLED RELEASE TAB PO SCH ×2 (08:22→20:45)
[2017-12-14] MEDS: FENOFIBRATE 48 MG TAB PO SCH (08:22)
[2017-12-14] MEDS: CHOLECALCIFEROL (VIT D3) 1000 UNIT TAB PO SCH (08:23)
[2017-12-14] MEDS: ASCORBIC ACID 500 MG TAB PO SCH (08:23)
[2017-12-14] MEDS: ALLOPURINOL 100 MG TAB PO SCH (08:23)
[2017-12-14] MEDS: CYANOCOBALAMIN 1,000 MCG TAB PO SCH (08:23)
[2017-12-14] MEDS: HEPARIN-D5W 25,000 U/250 ML 250 ML IV PRN ×2 (08:25→23:42)
[2017-12-14] MEDS: ATORVASTATIN 10 MG TAB PO SCH (20:46)
[2017-12-15] VITALS (14 sets, daily range): BP systolic 129–159; BP diastolic 75–87; PULSE 73–108; RESP 12–16; TEMP 97.7–98.4; O2SAT 94–99
[2017-12-15] MEDS: CARISOPRODOL 350 MG TAB PO SCH ×3 (04:48→16:49)
[2017-12-15] MEDS: LEVOTHYROXINE SODIUM 100 MCG TAB PO SCH (04:48)
[2017-12-15 06:08] LABS: AUTOMATED NEUTROPHIL # 6.5 TH/MM3 (1.8-7.7); BASOPHIL # 0.1 TH/MM3 (0-0.2); BASOPHIL % 1.4 % (0.0-2.0); EOSINOPHIL # 0.8 TH/MM3 (0-0.4); EOSINOPHIL % 7.7 % (0.0-4.0); HEMATOCRIT 30.9 % (39.0-51.0); HEMOGLOBIN 10.3 GM/DL (13.0-17.0); MEAN CELL VOLUME 84.6 FL (80.0-100.0); MEAN CORPUSCULAR HEMOGLOBIN 28.1 PG (27.0-34.0); MEAN CORPUSCULAR HGB CONC 33.3 % (32.0-36.0); MEAN PLATELET VOLUME 7.3 FL (7.0-11.0); MONO % 6.3 % (0.0-8.0); MONOCYTE # 0.6 TH/MM3 (0-0.9); NEUT % 64.6 % (16.0-70.0); PLATELET COUNT 368 TH/MM3 (150-450); RED BLOOD COUNT 3.66 MIL/MM3 (4.50-5.90); RED CELL DISTRIBUTION WIDTH 16.8 % (11.6-17.2); WHITE BLOOD COUNT 10.1 TH/MM3 (4.0-11.0)
[2017-12-15 06:21] LABS: BICARBONATE 27.1 MEQ/L (21.0-32.0); CALCIUM 8.8 MG/DL (8.5-10.1); CREATININE 1.18 MG/DL (0.60-1.30)
[2017-12-15 06:48] LABS: BANDS 6 % (0-6); BASOPHILS 1 % (0-2); LYMPHOCYTES 25 % (9-44); METAMYELOCYTES 1 % (0-1); MONOCYTES 2 % (0-8); NEUTROPHIL # MANUAL DIFF 6.6 TH/MM3 (1.8-7.7); POLYS (SEG NEUTROPHILS) 58 % (16-70)
[2017-12-15] MEDS: DULoxetine HCl DR 30 MG CAP PO SCH (07:56)
[2017-12-15] MEDS: FUROSEMIDE 40 MG TAB PO SCH (07:56)
[2017-12-15] MEDS: GABAPENTIN 300 MG CAP PO SCH ×3 (07:56→16:49)
[2017-12-15] MEDS: ASCORBIC ACID 500 MG TAB PO SCH (07:56)
[2017-12-15] MEDS: methylPREDNISolone 4 MG TAB PO SCH (07:56)
[2017-12-15] MEDS: ALLOPURINOL 100 MG TAB PO SCH (07:56)
[2017-12-15] MEDS: PREGABALIN 25 MG CAP PO SCH ×3 (07:57→16:49)
[2017-12-15] MEDS: CHOLECALCIFEROL (VIT D3) 1000 UNIT TAB PO SCH (07:57)
[2017-12-15] MEDS: ASPIRIN EC 81 MG TABEC PO SCH (07:57)
[2017-12-15] MEDS: DOCUSATE SODIUM 50 MG/SENNA 8.6 MG TAB PO SCH ×2 (07:57→21:20)
[2017-12-15] MEDS: FENOFIBRATE 48 MG TAB PO SCH (07:57)
[2017-12-15] MEDS: MAGNESIUM OXIDE 400 MG TAB PO SCH (07:58)
[2017-12-15] MEDS: MORPHINE SULFATE 15 MG CONTROLLED RELEASE TAB PO SCH ×2 (07:58→21:20)
[2017-12-15] MEDS: INSULIN NovoLIN REGULAR SUPPLEMENTAL SCALE SQ SCH ×4 (07:58→21:00)
[2017-12-15] MEDS: CYANOCOBALAMIN 1,000 MCG TAB PO SCH (07:58)
--- NOTE | 2017-12-15 09:31 | HHI.CCPN ---
Subjective Remarks/Hospital Course Patient is a 72-year-old male with multiple comorbidities which include hypertension, diabetes mellitus, hyperlipidemia, hypothyroidism, gastroesophageal reflux disease, chronic edema of left lower extremity who presented to [place] ED with one week history of progressive worsening shortness of breath. The patient states that his dyspnea is worse with exertion and improved with rest. He also noticed increased swelling in his left leg compared to the right lower extremity. He denies any history of COPD or CHF. On arrival to the ED, the patient was tachycardiac and hypoxic. He was placed on 35% ventilatory mask with improvements of his saturation. His laboratory data significant for elevated D-dimer 4.65, mild elevation troponin 0.25 and lactic acid of 2.6. In addition, he had some acute kidney injury with creatinine level of 1.80. Chest x-ray showed mild cardiomegaly with minimal peripheral changes right lung new compared to prior study. VQ scan was obtained which showed high probability for PE. In the ED, the patient was hypotensive with blood pressure 96/67 and he was given two liter boluses of normal saline and transferred to [facility] room 521. When seen, the patient remains on 35% ventilatory mask with sats of 96%. His blood pressure improved to 115/61 with a pulse of 80. He denies any nausea, vomiting or abdominal pain. In addition, no history of cough or constitutional symptoms. 12/11 No events overnight. On 5L oxygen with good sats, on heparin drip. 12/12: Desaturated earlier this evening currently on 5 L nasal cannula. Denies shortness of breath. Positive for nonproductive cough. Denies chest pain. Has chronic pain so resuming home pain regimen. 12/13: Resting comfortably in bed in no acute distress. On 6 L nasal cannula. Positive for nonproductive cough. Denies chest pain. Home medications resumed overnight/early this morning 12/14 Patient is lying in bed in NAD. On Heparin drip. Afebrile. On 4L oxygen. Subjective 12/15: February. On 6 L nasal cannula. Lying in bed in no acute distress. Pain better control. Tolerating diet. No bowel movement. Objective Vital Signs Date Time Temp Pulse Resp B/P (MAP) Pulse Ox O2 Delivery O2 Flow Rate FiO2 12/15/17 08:00 97.8 81 16 141/84 (103) 97 12/15/17 08:00 Nasal Cannula 6.00 Result Diagram: 12/15/17 0440 12/15/17 0440 Other Results Microbiology Date/Time Source Procedure Growth Status 12/10/17 12:00 Blood Peripheral Aerobic Blood Culture - Preliminary NO GROWTH IN 4 DAYS Resulted 12/10/17 12:00 Blood Peripheral Anaerobic Blood Culture - Preliminary NO GROWTH IN 4 DAYS Resulted 12/10/17 11:15 Nasal Washing Influenza Types A,B Antigen (CANDICE) - Final NEGATIVE FOR FLU A AND B ANTIGEN.... Complete Imaging Last Impressions Chest X-Ray 12/14/17 0600 Signed Impressions: Service Date/Time: Thursday, December 14, 2017 01:47 - CONCLUSION: 1. Minimal basal atelectasis. Previous fusion mid thoracic spine. Pawan Harrington MD Lung Scan- Nuclear Medicine 12/10/17 0000 Signed Impressions: Service Date/Time: Sunday, December 10, 2017 14:30 - CONCLUSION: Prominent mismatch defect involving the right upper lung characteristic for pulmonary embolism. This is a high probability for PE. Ric Dolan MD Lower Extremity Ultrasound 12/10/17 0000 Signed Impressions: Service Date/Time: Sunday, December 10, 2017 18:52 - CONCLUSION: 1. Occlusive and nonocclusive deep venous thrombus in the lower extremities bilaterally. Pawan Harrington MD Objective Remarks GENERAL: 72-year-old male resting in bed in no acute distress SKIN: Warm and dry. HEAD: Normocephalic. EYES: No scleral icterus. No injection or drainage. NECK: Supple, trachea midline. No JVD or lymphadenopathy. CARDIOVASCULAR: Regular rate and rhythm without murmurs, gallops, or rubs. RESPIRATORY: Breath sounds equal bilaterally. No accessory muscle use. GASTROINTESTINAL: Abdomen soft, non-tender, nondistended. MUSCULOSKELETAL: No cyanosis, + edema. Neuro: Awake and alert. Cranial nerves II through XII grossly intact. Strength is equal symmetric. Normal sensation Urinary Catheter: No Assessment to: Continue Vascular Central Line Catheter: No Assessment to: Continue A/P Assessment and Plan Neuro/Psych: Chronic opiate use Peripheral neuropathy left foot Depression Awake and alert. Monitor neuro status and avoid any sedatives. Resume duloxetine 30 mill grams daily Resume pregabalin 50 mill grams twice a day Resume Neurontin 600 mg 3 times a day Diclofenac 50 mill grams daily currently on hold Resume morphine sulfate extended release 15 mill grams twice a day with hydrocodone/acetaminophen 10/325 one tab every 4 hours as needed Pain Pulm: Likely right upper lobe pulmonary embolism on VQ scan Continue with oxygen and maintain sats above 92%. Currently on 6 L Bronchodilators with albuterol/ipratropium aerosols every 4 hours with albuterol aerosols every 2 hours. Dyspnea Incentive spirometry while awake VQ scan revealed high probability right upper lobe pulmonary embolism Chest X-ray ordered 12/16 CV: Hypertension Dyslipidemia Moderate pulmonary hypertension Elevated troponin Monitor HR and BP and maintain MAP>65 mmHg. On ASA 81mg daily Lactic acid likely is cleared 2-D echo ejection fraction 55-60%. Grade 1 diastolic dysfunction. RV systolic function mildly decreased. Size upper limits normal. Mild TR. Moderate pulmonary hypertension Transition heparin drip per PE protocol 2100 hrs. tonight to Apixaban 10 mg twice a day 7 days then 5 mg twice a day for 3 months Continue fenofibrate 54 mill grams daily - 48 mg hospital substitution and atorvastatin 10 mg at night for dyslipidemia Resume furosemide 40 mg by mouth daily Holding irbesartan 150 mg daily resume clinically indicated Resume amlodipine 2.5 mg now been 5 mill grams daily starting 12/16 FEN/Renal/: Hyponatremia Monitor renal function Is and Os and electrolyte replacement as needed. Avoid any nephrotoxins. Creatinine stable GI: Gastroesophageal reflux disease On famotidine 10 mg q. 12 for GI prophylaxis. p.o. heart healthy diet Docusate sodium/senna 1 tablet twice a day for bowel regimen ID: Monitor for signs of infections( fever and WBC). Chest x-ray in the ED showed mild cardiomegaly with minimal peripheral changes laterally right lung. Check sputum cx, UA with cx if indicated Heme: Normocytic anemia Lower extremity DVT Doppler US LE: Right peroneal occlusive thrombus, right popliteal nonocclusive thrombus. Left occlusive thrombus starting at the bifurcation the superficial and deep femoral vein and examined to the distal superficial femoral vein. Nonocclusive thrombus the posterior tibial vein. Monitor CBC and coags - on heparin drip Endo: Diabetes mellitus Hypothyroidism Gout Allopurinol 100 mg daily for gout continue SSI with Accu-Chek q. before meals/at bedtime for glycemic control. TSH level:1.80 date continue levothyroxine 100 g daily Holding metformin 850 mg twice a day with 1700 milligrams at night Holding pioglitazone 30 mg daily and nateglinide 120 milligrams daily MSK: Osteoarthritis PT evaluate and treat GI prophylaxis with famotidine and DVT prophylaxis- on Heparin drip l Level 2 follow-up Juan Alegria MD Dec 15, 2017 09:31
[2017-12-15] MEDS ORDERED: amLODIPine BESYLATE 5 MG TAB PO ONE (10:45)
[2017-12-15] MEDS ORDERED: POLYETHYLENE GLYCOL 17 GM PKG PO ONE (10:45)
--- NOTE | 2017-12-15 11:25 | RADRPT ---
EXAM DATE/TIME: 12/15/2017 10:04 [facility] COMPARISON: CHEST SINGLE AP, December 14, 2017, 1:47. INDICATIONS : Respiratory failure. MEDICAL HISTORY : Diabetes mellitus type II. SURGICAL HISTORY : Fusion, thoracic. Fusion, lumbar. ENCOUNTER: Subsequent ACUITY: 4 - 6 days PAIN SCORE: 0/10 LOCATION: chest FINDINGS: A single view of the chest demonstrates the lungs to be symmetrically aerated without evidence of mas s, infiltrate or effusion. The cardiomediastinal contours are unremarkable. Osseous structures are intact. Fusion screws and plates along the mid to lower thoracic spine. CONCLUSION: No acute disease. Charles Miles MD on December 15, 2017 at 11:21 Board Certified Radiologist. This report was verified electronically.
[2017-12-15] MEDS: RESP: ALBUTEROL 2.5 MG/IPRATROPIUM 0.5 MG NEB (SCH) NEB ×3 (12:15→20:24)
[2017-12-15] MEDS: HEPARIN-D5W 25,000 U/250 ML 250 ML IV PRN (16:51)
[2017-12-15] MEDS: APIXABAN 5 MG TABLET PO SCH (21:20)
[2017-12-15] MEDS: ATORVASTATIN 10 MG TAB PO SCH (21:20)
[2017-12-16] VITALS (19 sets, daily range): BP systolic 104–163; BP diastolic 53–89; PULSE 78–111; RESP 14–24; TEMP 96.7–99.1; O2SAT 83–100
[2017-12-16] MEDS: CARISOPRODOL 350 MG TAB PO SCH ×4 (00:57→18:13)
[2017-12-16] MEDS: CHLORHEXIDINE GLUCONATE 2 % 1 PACK (2 CLOTHS) TOP SCH ×2 (04:00→22:47)
[2017-12-16 05:24] LABS: AUTOMATED NEUTROPHIL # 6.8 TH/MM3 (1.8-7.7); BASOPHIL # 0.1 TH/MM3 (0-0.2); EOSINOPHIL # 0.6 TH/MM3 (0-0.4); EOSINOPHIL % 6.2 % (0.0-4.0); HEMATOCRIT 30.6 % (39.0-51.0); HEMOGLOBIN 10.7 GM/DL (13.0-17.0); LYMPH % 14.6 % (9.0-44.0); LYMPHOCYTE # 1.4 TH/MM3 (1.0-4.8); MEAN CORPUSCULAR HEMOGLOBIN 29.1 PG (27.0-34.0); MEAN PLATELET VOLUME 7.1 FL (7.0-11.0); MONO % 6.2 % (0.0-8.0); MONOCYTE # 0.6 TH/MM3 (0-0.9); PLATELET COUNT 366 TH/MM3 (150-450); RED BLOOD COUNT 3.69 MIL/MM3 (4.50-5.90); RED CELL DISTRIBUTION WIDTH 16.6 % (11.6-17.2); WHITE BLOOD COUNT 9.4 TH/MM3 (4.0-11.0)
[2017-12-16 05:57] LABS: ALBUMIN 2.6 GM/DL (3.4-5.0); ALKALINE PHOSPHATASE 112 U/L (45-117); ALT (GPT) 32 U/L (12-78); AST (GOT) 36 U/L (15-37); BICARBONATE 27.4 MEQ/L (21.0-32.0); BLOOD UREA NITROGEN 9 MG/DL (7-18); CALCIUM 9.5 MG/DL (8.5-10.1); CHLORIDE 101 MEQ/L (98-107); CREATININE 1.02 MG/DL (0.60-1.30); GLOMERULAR FILTRATION RATE 72 ML/MIN (>89); GLUCOSE,RANDOM 104 MG/DL (74-106); MAGNESIUM 1.7 MG/DL (1.5-2.5); PHOSPHORUS 2.5 MG/DL (2.5-4.9); SODIUM (NA) 133 MEQ/L (136-145); TOTAL BILIRUBIN ADULT 0.5 MG/DL (0.2-1.0); TOTAL PROTEIN 6.4 GM/DL (6.4-8.2)
[2017-12-16] MEDS: LEVOTHYROXINE SODIUM 100 MCG TAB PO SCH (06:22)
[2017-12-16] MEDS: RESP: ALBUTEROL 2.5 MG/IPRATROPIUM 0.5 MG NEB (SCH) NEB ×4 (07:46→19:56)
[2017-12-16] MEDS: INSULIN NovoLIN REGULAR SUPPLEMENTAL SCALE SQ SCH ×4 (08:00→21:18)
[2017-12-16 09:10] LABS: BANDS 3 % (0-6); BASOPHILS 1 % (0-2); LYMPHOCYTES 8 % (9-44); METAMYELOCYTES 1 % (0-1); MONOCYTES 5 % (0-8); NEUTROPHIL # MANUAL DIFF 7.5 TH/MM3 (1.8-7.7); POLYS (SEG NEUTROPHILS) 76 % (16-70)
[2017-12-16] MEDS: methylPREDNISolone 4 MG TAB PO SCH (09:15)
[2017-12-16] MEDS: POLYETHYLENE GLYCOL 17 GM PKG PO SCH (09:15)
[2017-12-16] MEDS: amLODIPine BESYLATE 5 MG TAB PO SCH (09:15)
[2017-12-16] MEDS: MAGNESIUM OXIDE 400 MG TAB PO SCH (09:15)
[2017-12-16] MEDS: CYANOCOBALAMIN 1,000 MCG TAB PO SCH (09:16)
[2017-12-16] MEDS: GABAPENTIN 300 MG CAP PO SCH ×3 (09:16→18:13)
[2017-12-16] MEDS: FENOFIBRATE 48 MG TAB PO SCH (09:16)
[2017-12-16] MEDS: MORPHINE SULFATE 15 MG CONTROLLED RELEASE TAB PO SCH ×2 (09:16→21:17)
[2017-12-16] MEDS: ASCORBIC ACID 500 MG TAB PO SCH (09:16)
[2017-12-16] MEDS: CHOLECALCIFEROL (VIT D3) 1000 UNIT TAB PO SCH (09:16)
[2017-12-16] MEDS: PREGABALIN 25 MG CAP PO SCH ×3 (09:16→18:13)
[2017-12-16] MEDS: ALLOPURINOL 100 MG TAB PO SCH (09:16)
[2017-12-16] MEDS: FUROSEMIDE 40 MG TAB PO SCH (09:17)
[2017-12-16] MEDS: DULoxetine HCl DR 30 MG CAP PO SCH (09:17)
[2017-12-16] MEDS: DOCUSATE SODIUM 50 MG/SENNA 8.6 MG TAB PO SCH ×2 (09:17→21:18)
[2017-12-16] MEDS: ASPIRIN EC 81 MG TABEC PO SCH (09:17)
[2017-12-16] MEDS: APIXABAN 5 MG TABLET PO SCH ×2 (09:26→21:17)
--- NOTE | 2017-12-16 19:13 | HHI.CCPN ---
Subjective Remarks/Hospital Course Patient is a 72-year-old male with multiple comorbidities which include hypertension, diabetes mellitus, hyperlipidemia, hypothyroidism, gastroesophageal reflux disease, chronic edema of left lower extremity who presented to [facility] with one week history of progressive worsening shortness of breath. The patient states that his dyspnea is worse with exertion and improved with rest. He also noticed increased swelling in his left leg compared to the right lower extremity. He denies any history of COPD or CHF. On arrival to the ED, the patient was tachycardiac and hypoxic. He was placed on 35% ventilatory mask with improvements of his saturation. His laboratory data significant for elevated D-dimer 4.65, mild elevation troponin 0.25 and lactic acid of 2.6. In addition, he had some acute kidney injury with creatinine level of 1.80. Chest x-ray showed mild cardiomegaly with minimal peripheral changes right lung new compared to prior study. VQ scan was obtained which showed high probability for PE. In the ED, the patient was hypotensive with blood pressure 96/67 and he was given two liter boluses of normal saline and transferred to [facility] room 521. When seen, the patient remains on 35% ventilatory mask with sats of 96%. His blood pressure improved to 115/61 with a pulse of 80. He denies any nausea, vomiting or abdominal pain. In addition, no history of cough or constitutional symptoms. 12/11 No events overnight. On 5L oxygen with good sats, on heparin drip. 12/12: Desaturated earlier this evening currently on 5 L nasal cannula. Denies shortness of breath. Positive for nonproductive cough. Denies chest pain. Has chronic pain so resuming home pain regimen. 12/13: Resting comfortably in bed in no acute distress. On 6 L nasal cannula. Positive for nonproductive cough. Denies chest pain. Home medications resumed overnight/early this morning 12/14 Patient is lying in bed in NAD. On Heparin drip. Afebrile. On 4L oxygen. 12/15: On 6 L nasal cannula. Lying in bed in no acute distress. Pain better control. Tolerating diet. No bowel movement. Subjective 12/16: Few areas of ecchymoses. On 4 L nasal cannula. Resting in bed in no acute distress. Urinary retention. Objective Vital Signs Date Time Temp Pulse Resp B/P (MAP) Pulse Ox O2 Delivery O2 Flow Rate FiO2 12/16/17 18:13 108 16 116/80 (92) 94 12/16/17 16:00 98.1 12/16/17 07:50 Nasal Cannula 4.00 Intake and Output 12/16/17 12/16/17 12/17/17 08:00 16:00 00:00 Intake Total 100 ml 600 ml Output Total 1225 ml 400 ml Balance -1125 ml 200 ml Result Diagram: 12/16/17 0445 12/16/17 0445 Other Results Microbiology Date/Time Source Procedure Growth Status 12/10/17 12:00 Blood Peripheral Aerobic Blood Culture - Final NO GROWTH IN 5 DAYS Complete 12/10/17 12:00 Blood Peripheral Anaerobic Blood Culture - Final NO GROWTH IN 5 DAYS Complete 12/10/17 11:15 Nasal Washing Influenza Types A,B Antigen (CANDICE) - Final NEGATIVE FOR FLU A AND B ANTIGEN.... Complete Imaging Last Impressions Chest X-Ray 12/15/17 0000 Signed Impressions: Service Date/Time: Friday, December 15, 2017 10:04 - CONCLUSION: No acute disease. Charles Miles MD Lung Scan-V Nuclear Medicine 12/10/17 0000 Signed Impressions: Service Date/Time: Sunday, December 10, 2017 14:30 - CONCLUSION: Prominent mismatch defect involving the right upper lung characteristic for pulmonary embolism. This is a high probability for PE. Rci Dolan MD Lower Extremity Ultrasound 12/10/17 0000 Signed Impressions: Service Date/Time: Sunday, December 10, 2017 18:52 - CONCLUSION: 1. Occlusive and nonocclusive deep venous thrombus in the lower extremities bilaterally. Pawan Harrington MD Objective Remarks GENERAL: 72-year-old male resting in bed in no acute distress SKIN: Warm and dry. HEAD: Normocephalic. EYES: No scleral icterus. No injection or drainage. NECK: Supple, trachea midline. No JVD or lymphadenopathy. CARDIOVASCULAR: Regular rate and rhythm without murmurs, gallops, or rubs. RESPIRATORY: Breath sounds equal bilaterally. No accessory muscle use. GASTROINTESTINAL: Abdomen soft, non-tender, nondistended. MUSCULOSKELETAL: No cyanosis, + edema. Neuro: Awake and alert. Cranial nerves II through XII grossly intact. Strength is equal symmetric. Normal sensation A/P Assessment and Plan Neuro/Psych: Chronic opiate use Peripheral neuropathy left foot Depression Awake and alert. Monitor neuro status and avoid any sedatives. Resume duloxetine 30 mill grams daily Resume pregabalin 50 mill grams twice a day Resume Neurontin 600 mg 3 times a day Diclofenac 50 mill grams daily currently on hold Resume morphine sulfate extended release 15 mill grams twice a day with hydrocodone/acetaminophen 10/325 one tab every 4 hours as needed Pain Pulm: Likely right upper lobe pulmonary embolism on VQ scan Continue with oxygen and maintain sats above 92%. Currently on 4 L Bronchodilators with albuterol/ipratropium aerosols every 4 hours with albuterol aerosols every 2 hours. Dyspnea Incentive spirometry while awake VQ scan revealed high probability right upper lobe pulmonary embolism Chest X-ray ordered 12/18 CV: Hypertension Dyslipidemia Moderate pulmonary hypertension Elevated troponin Monitor HR and BP and maintain MAP>65 mmHg. On ASA 81mg daily Lactic acid likely is cleared 2-D echo ejection fraction 55-60%. Grade 1 diastolic dysfunction. RV systolic function mildly decreased. Size upper limits normal. Mild TR. Moderate pulmonary hypertension Transition heparin drip per PE protocol 2100 hrs. tonight to Apixaban 10 mg twice a day 7 days then 5 mg twice a day for 3 months Continue fenofibrate 54 mill grams daily - 48 mg hospital substitution and atorvastatin 10 mg at night for dyslipidemia Resume furosemide 40 mg by mouth daily Holding irbesartan 150 mg daily resume clinically indicated Resume amlodipine 5 mg daily FEN/Renal/: Hyponatremia Monitor renal function Is and Os and electrolyte replacement as needed. Avoid any nephrotoxins. Creatinine stable GI: Gastroesophageal reflux disease On famotidine 10 mg q. 12 for GI prophylaxis. p.o. heart healthy diet Docusate sodium/senna 1 tablet twice a day for bowel regimen ID: Monitor for signs of infections( fever and WBC). Chest x-ray in the ED showed mild cardiomegaly with minimal peripheral changes laterally right lung. Check sputum cx, UA with cx if indicated Heme: Normocytic anemia Lower extremity DVT Doppler US LE: Right peroneal occlusive thrombus, right popliteal nonocclusive thrombus. Left occlusive thrombus starting at the bifurcation the superficial and deep femoral vein and examined to the distal superficial femoral vein. Nonocclusive thrombus the posterior tibial vein. Monitor CBC and coags - on Apixaban 10 mg twice a day 7 days and 5 mill grams twice a day Endo: Diabetes mellitus Hypothyroidism Gout Allopurinol 100 mg daily for gout continue SSI with Accu-Chek q. before meals/at bedtime for glycemic control. TSH level:1.80 date continue levothyroxine 100 g daily Holding metformin 850 mg twice a day with 1700 milligrams at night Holding pioglitazone 30 mg daily and nateglinide 120 milligrams daily MSK: Osteoarthritis PT evaluate and treat GI prophylaxis with famotidine and DVT prophylaxis- on Apixaban l Level 2 follow-up Patient is stable from a critical care medicine standpoint. Assign care to hospitalist in a.m. 12/17. Okay to transfer to floor Juan Alegria MD Dec 16, 2017 19:13
[2017-12-16] MEDS: ATORVASTATIN 10 MG TAB PO SCH (21:18)
[2017-12-17] VITALS (7 sets, daily range): BP systolic 107–136; BP diastolic 60–84; PULSE 80–84; RESP 16–18; TEMP 96.3–97.6; O2SAT 93–95
[2017-12-17] MEDS: CARISOPRODOL 350 MG TAB PO SCH ×5 (00:07→22:53)
[2017-12-17] MEDS: LEVOTHYROXINE SODIUM 100 MCG TAB PO SCH (06:11)
[2017-12-17] MEDS: RESP: ALBUTEROL 2.5 MG/IPRATROPIUM 0.5 MG NEB (SCH) NEB ×4 (07:45→19:44)
[2017-12-17] MEDS: INSULIN NovoLIN REGULAR SUPPLEMENTAL SCALE SQ SCH ×4 (08:00→21:00)
[2017-12-17] MEDS: ALLOPURINOL 100 MG TAB PO SCH (10:29)
[2017-12-17] MEDS: DULoxetine HCl DR 30 MG CAP PO SCH (10:29)
[2017-12-17] MEDS: CYANOCOBALAMIN 1,000 MCG TAB PO SCH (10:29)
[2017-12-17] MEDS: POLYETHYLENE GLYCOL 17 GM PKG PO SCH (10:29)
[2017-12-17] MEDS: PREGABALIN 25 MG CAP PO SCH ×3 (10:29→16:58)
[2017-12-17] MEDS: methylPREDNISolone 4 MG TAB PO SCH (10:29)
[2017-12-17] MEDS: FUROSEMIDE 40 MG TAB PO SCH (10:30)
[2017-12-17] MEDS: DOCUSATE SODIUM 50 MG/SENNA 8.6 MG TAB PO SCH ×2 (10:30→22:50)
[2017-12-17] MEDS: GABAPENTIN 300 MG CAP PO SCH ×3 (10:30→16:58)
[2017-12-17] MEDS: ASCORBIC ACID 500 MG TAB PO SCH (10:30)
[2017-12-17] MEDS: MORPHINE SULFATE 15 MG CONTROLLED RELEASE TAB PO SCH ×2 (10:30→22:51)
[2017-12-17] MEDS: MAGNESIUM OXIDE 400 MG TAB PO SCH (10:30)
[2017-12-17] MEDS: APIXABAN 5 MG TABLET PO SCH ×2 (10:31→22:50)
[2017-12-17] MEDS: amLODIPine BESYLATE 5 MG TAB PO SCH (10:31)
[2017-12-17] MEDS: ASPIRIN EC 81 MG TABEC PO SCH (10:31)
[2017-12-17] MEDS: FENOFIBRATE 48 MG TAB PO SCH (10:31)
[2017-12-17] MEDS: CHOLECALCIFEROL (VIT D3) 1000 UNIT TAB PO SCH (10:31)
--- NOTE | 2017-12-17 12:27 | HHI.PR ---
Subjective Remarks Patient gets very short of breath with minimal activity Objective Vitals Vital Signs Date Time Temp Pulse Resp B/P (MAP) Pulse Ox O2 Delivery O2 Flow Rate FiO2 12/17/17 08:00 96.9 80 18 136/73 (94) 93 12/17/17 07:51 94 Nasal Cannula 4.00 12/17/17 03:39 96.4 81 18 133/84 (100) 94 12/17/17 01:22 18 12/16/17 23:36 96.7 94 18 141/86 (104) 92 12/16/17 23:26 18 12/16/17 20:00 91 12/16/17 20:00 98.0 91 16 113/53 (73) 95 12/16/17 19:57 92 Nasal Cannula 4.00 12/16/17 19:13 16 12/16/17 19:00 96 Nasal Cannula 4.00 12/16/17 18:13 108 16 116/80 (92) 94 12/16/17 17:00 83 14 122/69 (86) 95 12/16/17 16:00 98.1 86 14 116/65 (82) 94 12/16/17 15:01 97 15 126/65 (85) 93 12/16/17 14:00 97 17 104/65 (78) 90 12/16/17 13:01 93 24 140/71 (94) 92 I/O 12/16/17 12/16/17 12/16/17 12/17/17 12/17/17 12/17/17 07:00 15:00 23:00 07:00 15:00 23:00 Intake Total 100 ml 600 ml 480 ml Output Total 1225 ml 400 ml 450 ml Balance -1125 ml 200 ml 30 ml Intake Oral 100 ml 600 ml 480 ml Output Urine Total 1225 ml 400 ml 450 ml # Voids 1 # Bowel Movements 0 0 Result Diagram: 12/16/17 0445 12/16/17 0445 Objective Remarks GENERAL: This is a well-nourished, well-developed patient, in no apparent distress. CARDIOVASCULAR: Normal rate and regular rhythm without murmurs, gallops, or rubs. RESPIRATORY: Good respiratory efforts. Diminished breath sounds bilaterally at the bases. GASTROINTESTINAL: Abdomen soft, non-tender, non-distended. Normal active bowel sounds MUSCULOSKELETAL: Extremities without cyanosis, or edema. NEURO: Alert & Oriented x4 to person, place, time, situation. Moves all ext x4 PSYCH: Appropriate mood and affect. A/P Assessment and Plan 72-year-old male admitted with respiratory failure secondary to pulmonary embolism: Respiratory failure Likely secondary to right upper lobe pulmonary embolism on VQ scan Continue with oxygen and maintain sats above 92%. Currently on 4 L. Wean off oxygen as tolerated. He may need oxygen for home s/p heparin drip, transitioned to Eliquis Encourage incentive spirometry Chronic opiate use Peripheral neuropathy left foot Depression Continue duloxetine 30 mill grams daily, pregabalin 50 mill grams twice a day, Neurontin 600 mg 3 times a day Continue morphine sulfate extended release 15 mill grams twice a day with hydrocodone/acetaminophen 10/325 one tab every 4 hours as needed Pain Hypertension Dyslipidemia Moderate pulmonary hypertension Resume furosemide 40 mg by mouth daily Holding irbesartan 150 mg daily resume clinically indicated Resume amlodipine 5 mg daily Gastroesophageal reflux disease On famotidine 10 mg q. 12 for GI prophylaxis. p.o. heart healthy diet Docusate sodium/senna 1 tablet twice a day for bowel regimen Lower extremity DVT Doppler US LE: Right peroneal occlusive thrombus, right popliteal nonocclusive thrombus. Left occlusive thrombus starting at the bifurcation the superficial and deep femoral vein and examined to the distal superficial femoral vein. Nonocclusive thrombus the posterior tibial vein. Monitor CBC and coags - on Apixaban 10 mg twice a day 7 days and 5 mill grams twice a day Diabetes mellitus Hypothyroidism Gout Allopurinol 100 mg daily for gout continue SSI with Accu-Chek q. before meals/at bedtime for glycemic control. TSH level:1.80 date continue levothyroxine 100 g daily Holding metformin 850 mg twice a day with 1700 milligrams at night Holding pioglitazone 30 mg daily and nateglinide 120 milligrams daily Osteoarthritis PT evaluate and treat GI prophylaxis with famotidine and DVT prophylaxis- on Apixaban Discharge Planning Pending improvement in respiratory status. May need home oxygen Ricky Banegas MD Dec 17, 2017 12:26
[2017-12-17] MEDS: ATORVASTATIN 10 MG TAB PO SCH (22:50)
[2017-12-18] VITALS: BP 107/61; PULSE 81; RESP 16; TEMP 97.9; O2SAT 94
[2017-12-18] MEDS: CHLORHEXIDINE GLUCONATE 2 % 1 PACK (2 CLOTHS) TOP SCH (03:05)
[2017-12-18] MEDS: CARISOPRODOL 350 MG TAB PO SCH ×2 (06:36→11:22)
[2017-12-18] MEDS: LEVOTHYROXINE SODIUM 100 MCG TAB PO SCH (06:36)
[2017-12-18 07:39] VITALS: BP 120/65; PULSE 93; RESP 18; TEMP 96; O2SAT 92
[2017-12-18] MEDS: DULoxetine HCl DR 30 MG CAP PO SCH (08:00)
[2017-12-18] MEDS: CHOLECALCIFEROL (VIT D3) 1000 UNIT TAB PO SCH (08:00)
[2017-12-18] MEDS: DOCUSATE SODIUM 50 MG/SENNA 8.6 MG TAB PO SCH (08:00)
[2017-12-18] MEDS: CYANOCOBALAMIN 1,000 MCG TAB PO SCH (08:00)
[2017-12-18] MEDS: ALLOPURINOL 100 MG TAB PO SCH (08:00)
[2017-12-18] MEDS: INSULIN NovoLIN REGULAR SUPPLEMENTAL SCALE SQ SCH ×2 (08:00→11:22)
[2017-12-18] MEDS: PREGABALIN 25 MG CAP PO SCH ×2 (08:01→11:22)
[2017-12-18] MEDS: MORPHINE SULFATE 15 MG CONTROLLED RELEASE TAB PO SCH (08:01)
[2017-12-18] MEDS: ASCORBIC ACID 500 MG TAB PO SCH (08:01)
[2017-12-18] MEDS: GABAPENTIN 300 MG CAP PO SCH ×2 (08:01→11:22)
[2017-12-18] MEDS: FUROSEMIDE 40 MG TAB PO SCH (08:01)
[2017-12-18] MEDS: methylPREDNISolone 4 MG TAB PO SCH (08:01)
[2017-12-18] MEDS: MAGNESIUM OXIDE 400 MG TAB PO SCH (08:02)
[2017-12-18] MEDS: amLODIPine BESYLATE 5 MG TAB PO SCH (08:02)
[2017-12-18] MEDS: APIXABAN 5 MG TABLET PO SCH (08:02)
[2017-12-18] MEDS: ASPIRIN EC 81 MG TABEC PO SCH (08:02)
[2017-12-18] MEDS: FENOFIBRATE 48 MG TAB PO SCH (08:02)
[2017-12-18] MEDS: POLYETHYLENE GLYCOL 17 GM PKG PO SCH (08:09)
[2017-12-18 08:22] VITALS: O2SAT 93
[2017-12-18] MEDS: RESP: ALBUTEROL 2.5 MG/IPRATROPIUM 0.5 MG NEB (SCH) NEB ×2 (08:22→12:12)
[2017-12-18 11:23] VITALS: BP 121/73; PULSE 94; RESP 18; TEMP 98.6; O2SAT 92
[2017-12-18] MEDS ORDERED: MORP1TAB24 PO (12:02)
[2017-12-18] MEDS ORDERED: APIX5TAB PO (12:02)
--- NOTE | 2017-12-18 12:03 | HHI.DS ---
Discharge Summary Admission Date Dec 10, 2017 at 15:37 Discharge Date: Dec 18, 2017 Admitting Diagnosis pulmonary embolism (1) Pulmonary embolism ICD Code: I26.99 - Other pulmonary embolism without acute cor pulmonale Status: Acute (2) Hypertension ICD Code: I10 - Essential (primary) hypertension Status: Chronic (3) Hypothyroid ICD Code: E03.9 - Hypothyroidism, unspecified Status: Chronic (4) Morbid obesity with BMI of 40.0-44.9, adult ICD Code: E66.01 - Morbid (severe) obesity due to excess calories; Z68.41 - Body mass index (BMI) 40.0-44.9, adult Status: Acute (5) Impaired mobility and activities of daily living ICD Code: Z74.09 - Other reduced mobility Status: Acute Procedures None Brief History - From Admission History of present illness from the admitting physician 72-year-old male with multiple comorbidities which include hypertension, diabetes mellitus, hyperlipidemia, hypothyroidism, gastroesophageal reflux disease, chronic edema of left lower extremity who presented to [facility] with one week history of progressive worsening shortness of breath. The patient states that his dyspnea is worse with exertion and improved with rest. He also noticed increased swelling in his left leg compared to the right lower extremity. He denies any history of COPDor CHF. On arrival to the ED, the patient was tachycardiac and hypoxic. He was placed on 35% ventilatory mask with improvements of his saturation. His laboratory data significant for elevated D-dimer 4.65, mild elevation troponin0.25 and lactic acid of 2.6. In addition, he had some acute kidney injury with creatinine level of 1.80. Chest x-ray showed mild cardiomegaly with minimal peripheral changes right lung new compared to prior study. VQ scan was obtained which showed high probability for PE. In the ED, the patient was hypotensive with blood pressure 96/67 and he was given two liter boluses of normal saline and transferred to [facility] room 521. CBC/BMP: 12/16/17 0445 12/16/17 0445 Significant Findings Laboratory Tests Test 12/16/17 04:45 Red Blood Count 3.69 MIL/MM3 (4.50-5.90) Hemoglobin 10.7 GM/DL (13.0-17.0) Hematocrit 30.6 % (39.0-51.0) Neutrophils (%) (Auto) 72.0 % (16.0-70.0) Eosinophils (%) (Auto) 6.2 % (0.0-4.0) Eosinophils # (Auto) 0.6 TH/MM3 (0-0.4) Neutrophils % (Manual) 76 % (16-70) Lymphocytes % 8 % (9-44) Eosinophils % 6 % (0-4) Albumin 2.6 GM/DL (3.4-5.0) Sodium Level 133 MEQ/L (136-145) Estimat Glomerular Filtration Rate 72 ML/MIN (>89) Imaging Last Impressions Chest X-Ray 12/15/17 0000 Signed Impressions: Service Date/Time: Friday, December 15, 2017 10:04 - CONCLUSION: No acute disease. Charles Miles MD Lung Scan- Nuclear Medicine 12/10/17 0000 Signed Impressions: Service Date/Time: Sunday, December 10, 2017 14:30 - CONCLUSION: Prominent mismatch defect involving the right upper lung characteristic for pulmonary embolism. This is a high probability for PE. Ric Dolan MD Lower Extremity Ultrasound 12/10/17 0000 Signed Impressions: Service Date/Time: Sunday, December 10, 2017 18:52 - CONCLUSION: 1. Occlusive and nonocclusive deep venous thrombus in the lower extremities bilaterally. Pawan Harrington MD PE at Discharge GENERAL: This is a well-nourished, well-developed patient, in no apparent distress. CARDIOVASCULAR: Normal rate and regular rhythm without murmurs, gallops, or rubs. RESPIRATORY: Good respiratory efforts. Diminished breath sounds bilaterally at the bases. GASTROINTESTINAL: Abdomen soft, non-tender, non-distended. Normal active bowel sounds MUSCULOSKELETAL: Extremities without cyanosis, or edema. NEURO: Alert & Oriented x4 to person, place, time, situation. Moves all ext x4 PSYCH: Appropriate mood and affect. Pt update on day of discharge Patient reports is feeling better from a respiratory standpoint. Still very weak. Agreeable to go to rehabilitation. Hospital Course 72-year-old male admitted with respiratory failure secondary to pulmonary embolism. Evaluation and treatment course detailed below: Respiratory failure Likely secondary to right upper lobe pulmonary embolism on VQ scan Patient was started on heparin drip and was eventually transitioned to Eliquis. Chronic opiate use Peripheral neuropathy left foot Depression Continue duloxetine 30 mill grams daily, pregabalin 50 mill grams twice a day, Neurontin 600 mg 3 times a day Continue morphine sulfate extended release 15 mill grams twice a day with hydrocodone/acetaminophen 10/325 one tab every 4 hours as needed Pain Hypertension Dyslipidemia Moderate pulmonary hypertension Resume furosemide 40 mg by mouth daily Resume irbesartan 150 mg daily Resume amlodipine 5 mg daily Gastroesophageal reflux disease Continue PPI Lower extremity DVT Doppler US LE: Right peroneal occlusive thrombus, right popliteal nonocclusive thrombus. Left occlusive thrombus starting at the bifurcation the superficial and deep femoral vein and examined to the distal superficial femoral vein. Patient was started on heparin drip and eventually transitioned to Eliquis. Diabetes mellitus Hypothyroidism Gout Allopurinol 100 mg daily for gout continue SSI with Accu-Chek q. before meals/at bedtime for glycemic control. TSH level:1.80 date continue levothyroxine 100 g daily Oral hypoglycemic agents were held. They were resumed on discharge. Osteoarthritis Continue pain control and physical therapy Debility: Secondary to multiple comorbid conditions as above. - Patient is discharged to SNF to continue rehabilitation efforts. Pt Condition on Discharge: Good Discharge Disposition: Discharge to SNF Discharge Time: > 30 minutes Discharge Instructions DIET: Follow Instructions for: Heart Healthy Diet, Diabetic Diet Activities you can perform: Regular-No Restrictions Follow up Referrals: PCP Follow-up - 2 Weeks New Medications: Apixaban (Eliquis) 5 Mg Tab 5 MG PO BID, #60 TAB Continued Medications: Allopurinol (Allopurinol) 100 Mg Tab 100 MG PO DAILY, #30 Amlodipine (Amlodipine) 5 Mg Tab 5 MG PO DAILY, #30 Ascorbic Acid ER (Vitamin C ER) 500 Mg Sandra 500 MG PO DAILY for Nutritional Supplement, TAB [address] (Aspirin EC) 81 Mg Tabdr 81 MG PO DAILY, TAB 0 Refills Atorvastatin (Atorvastatin) 10 Mg Tab 10 MG PO HS for Cholesterol Management, #30 TAB 0 Refills Carisoprodol (Soma) 350 Mg Tab 350 MG PO Q6HR, TAB 0 Refills Cyanocobalamin ER (Vitamin B-12 ER) 1,000 Mcg Tab 1000 MCG PO DAILY for Nutritional Supplement, #1 BOTTLE 0 Refills Docusate Sodium (Stool Softener) 100 Mg Cap 1 CAP PO DAILY PRN for CONSTIPATION Duloxetine DR (Duloxetine DR) 30 Mg Capdr 30 MG PO DAILY, #60 Fenofibrate (Fenofibrate) 54 Mg Tab 54 MG PO DAILY, #30 TAB 0 Refills Furosemide (Furosemide) 40 Mg Tab 40 MG PO DAILY, #30 Gabapentin (Neurontin) 400 Mg Cap 800 MG PO TID, #90 CAP Gabapentin (Gabapentin) 600 Mg Tab 600 MG PO TID, #90 TAB 0 Refills Irbesartan (Irbesartan) 150 Mg Tab 1 TAB PO DAILY Levothyroxine (Levothyroxine) 100 Mcg Tab 100 MCG PO DAILY, #90 Magnesium (Magnesium) 400 Mg Tab 400 MG PO DAILY for Nutritional Supplement, TAB 0 Refills Metformin (Metformin) 850 Mg Tab 850 MG PO BID, #270 Morphine ER (Morphine ER) 15 Mg Tab 15 MG PO BID for Pain Management, #60 TAB 0 Refills (This prescription has been renewed) Nateglinide (Nateglinide) 120 Mg Tab 120 MG PO DAILY, #270 Pioglitazone (Pioglitazone) 30 Mg Tab 30 MG PO DAILY for Blood Sugar Management, #30 TAB 0 Refills Pregabalin (Lyrica) 50 Mg Cap 1 CAP PO TID Discontinued Medications: Diclofenac Sodium DR (Diclofenac Sodium DR) 50 Mg Tabdr 50 MG PO DAILY, #30 TAB Hydrocodone-Acetaminophen (Hydrocodone-Acetaminophen) 10-325 mg Tab 1 TAB PO Q4H PRN for PAIN, #30 TAB 0 Refills Metformin (Metformin) 850 Mg Tab 1700 MG PO HS for Blood Sugar Management, TAB 0 Refills With a meal Methylprednisolone (Methylprednisolone) 8 Mg Tab 4 MG PO DAILY, TAB 0 Refills Ricky Banegas MD Dec 18, 2017 12:03
[2017-12-23] MEDS ORDERED: APIXABAN 5 MG TABLET PO SCH (09:00)
== END 2017-12-18 15:16 | DRG 175 ==
LOC: PHED 10:56 → PHEDA 15:37 → HIMN 17:05 → N06B 12-16 23:21
PROVIDERS: ADMIT Family Medicine; ATTEND Family Medicine
DX: I26.99 Other pulmonary embolism without acute cor pulmonale (principal); J96.91 Respiratory failure, unspecified with hypoxia; N17.9 Acute kidney failure, unspecified; I95.9 Hypotension, unspecified; E87.2 Acidosis; E11.42 Type 2 diabetes mellitus with diabetic polyneuropathy; I27.20 Pulmonary hypertension, unspecified; I82.412 Acute embolism and thrombosis of left femoral vein; D64.9 Anemia, unspecified; Z68.41 Body mass index [BMI] 40.0-44.9, adult; I82.4Z1 Acute embolism and thrombosis of unspecified deep veins of right distal lower extremity; E87.1 Hypo-osmolality and hyponatremia; E66.01 Morbid (severe) obesity due to excess calories; I10 Essential (primary) hypertension; D72.829 Elevated white blood cell count, unspecified; F32.9 Major depressive disorder, single episode, unspecified; K21.9 Gastro-esophageal reflux disease without esophagitis; R00.0 Tachycardia, unspecified; E78.5 Hyperlipidemia, unspecified; E03.9 Hypothyroidism, unspecified; R26.9 Unspecified abnormalities of gait and mobility; Z96.652 Presence of left artificial knee joint; M10.9 Gout, unspecified; M19.90 Unspecified osteoarthritis, unspecified site; G89.29 Other chronic pain; Z79.82 Long term (current) use of aspirin; Z79.891 Long term (current) use of opiate analgesic; Z87.891 Personal history of nicotine dependence; Z79.84 Long term (current) use of oral hypoglycemic drugs
CPT/HCPCS: 71045; 78582; 80048; 80053; 82948; 83605; 83735; 83880; 84100; 84443; 84484; 85007; 85025; 85027; 85379; 85610; 85730; 87040; 87641; 87804; 93005; 93306; 93970; 94150; 94640; 94664; 96365; 96375; A9540; A9567; J1644; J1956; J2930; J7030; J7040; J7050; J7509

== ENCOUNTER 2018-01-03 21:19 | Emergency (ER) | payer MEDICARE ==
[~2018-01-03 21:19] MED LIST changes: +APIX5TAB PO; -CARI350T25 PO; -CHOL10008 PO; -CHOL5000 PO; -DICL50TA3 PO; +GABA600T PO; -HYDR-3583 PO; -MEDR4PAK PO; -RANI150T PO; +SOMA350T PO
[2018-01-03 21:32] VITALS: BP 122/70; PULSE 94; RESP 18; TEMP 97.6; O2SAT 98
--- NOTE | 2018-01-03 23:11 | PD ---
HPI Chief Complaint: Edema Time Seen by Provider: 22:27 Travel History International Travel<30 days: No Contact w/Intl Traveler<30days: No Traveled to known affect area: No History of Present Illness HPI 72-year-old male complains of left leg pain. Patient was admitted to [facility] December 10 and discharged December 18 for bilateral lower extremity DVT , PE, hypertension, thyroidism, morbid obesity, impaired mobility, hypertension , chronic opiate use, peripheral neuropathy, depression, GERD, diabetes, hypothyroidism, osteoarthritis. Patient was started on heparin and eventually transitioned to Eliquis on discharge. Patient is going through [facility]. Patient states that the physical therapist was stretching his left leg tonight and patient started having increasing pain from the left buttock shooting down to the left leg. Patient denies any fall recently. Patient denies any headache. Patient denies any chest pain or shortness of breath. Patient denies abdominal pain. long term staff States that patient has increase in swelling of the left leg today. PFSH Past Medical History Hx Anticoagulant Therapy: Yes Arthritis: Yes Asthma: No Autoimmune Disease: No Anxiety: No Depression: Yes Heart Rhythm Problems: No Cancer: No Cardiovascular Problems: Yes High Cholesterol: Yes Chemotherapy: No Chest Pain: No Congestive Heart Failure: No COPD: No Cerebrovascular Accident: No Diabetes: Yes Patient Takes Glucophage: No Diminished Hearing: No Endocrine: Yes Gastrointestinal Disorders: Yes (ACID REFLUX, OCCAS & CONSTIPATION ) GERD: Yes Genitourinary: No Hepatitis: No Hiatal Hernia: No Hypertension: Yes Immune Disorder: No Kidney Stones: No Medical other: Yes (RECENT FALL ON R KNEE WITH PAIN) Musculoskeletal: Yes (LOSS OF STRENGTH OF LEFT LEG, OA, TORN ROTATOR CUFF RIGHT ) Neurologic: Yes (NEUROPATHY LEFT FOOT) Psychiatric: Yes (DEPRESSION) Reproductive: No Respiratory: Yes (lung nodule ) Migraines: No Radiation Therapy: No Renal Failure: No Seizures: No Sickle Cell Disease: No Sleep Apnea: No Thyroid Disease: Yes Ulcer: No ?: Not Past Surgical History Abdominal Surgery: Yes (APPENDECTOMY) AICD: No Appendectomy: Yes Arteriovenous Shunt: No Body Medical Devices: PT DENIES ANY IMPLANTS Cardiac Surgery: No Ear Surgery: No Endocrine Surgery: No Eye Surgery: No Genitourinary Surgery: No Gynecologic Surgery: No Insulin Pump: No Joint Replacement: No Neurologic Surgery: Yes (CERVICAL SPINE STIMULATOR AND REMOVAL 1 YR AGO; PLATE THORACIC SPINE 2006?) Oral Surgery: Yes (TONSILLECTOMY ) Pacemaker: No Thoracic Surgery: No Tonsillectomy: Yes Other Surgery: Yes Social History Alcohol Use: No Tobacco Use: No Substance Use: No Allergies-Medications (Allergen,Severity, Reaction): Coded Allergies: coconut (Unverified Allergy, Severe, Hives, 01/03/18) Reported Meds & Prescriptions Reported Meds & Active Scripts Active Eliquis (Apixaban) 5 Mg Tab 5 Mg PO BID Morphine ER (Morphine Sulfate) 15 Mg Tab 15 Mg PO BID Neurontin (Gabapentin) 400 Mg Cap 800 Mg PO TID Reported Gabapentin 600 Mg Tab 600 Mg PO TID Soma (Carisoprodol) 350 Mg Tab 350 Mg PO Q6HR Fenofibrate 54 Mg Tab 54 Mg PO DAILY Stool Softener (Docusate Sodium) 100 Mg Cap 1 Cap PO DAILY PRN Vitamin B-12 ER (Cyanocobalamin) 1,000 Mcg Tab 1,000 Mcg PO DAILY Aspirin EC (Aspirin) 81 Mg Tabdr 81 Mg PO DAILY Atorvastatin (Atorvastatin Calcium) 10 Mg Tab 10 Mg PO HS Lyrica (Pregabalin) 50 Mg Cap 1 Cap PO TID Irbesartan 150 Mg Tab 1 Tab PO DAILY Vitamin C ER (Ascorbic Acid) 500 Mg Sandra 500 Mg PO DAILY Metformin (Metformin HCl) 850 Mg Tab 850 Mg PO BID Nateglinide 120 Mg Tab 120 Mg PO DAILY Levothyroxine (Levothyroxine Sodium) 100 Mcg Tab 100 Mcg PO DAILY Amlodipine (Amlodipine Besylate) 5 Mg Tab 5 Mg PO DAILY Furosemide 40 Mg Tab 40 Mg PO DAILY Duloxetine DR (Duloxetine HCl) 30 Mg Capdr 30 Mg PO DAILY Allopurinol 100 Mg Tab 100 Mg PO DAILY Pioglitazone (Pioglitazone HCl) 30 Mg Tab 30 Mg PO DAILY Magnesium 400 Mg Tab 400 Mg PO DAILY Review of Systems General / Constitutional: No: Fever Eyes: No: Visual changes HENT: No: Headaches Cardiovascular: No: Chest Pain or Discomfort Respiratory: No: Shortness of Breath Gastrointestinal: No: Abdominal Pain Genitourinary: No: Dysuria Musculoskeletal: Positive: Edema, Pain Skin: No Rash Neurologic: No: Weakness Psychiatric: No: Depression Endocrine: No: Polydipsia Hematologic/Lymphatic: No: Easy Bruising Physical Exam Narrative GENERAL: Well-nourished, well-developed patient. SKIN: Focused skin assessment warm/dry. HEAD: Normocephalic. EYES: No scleral icterus. No injection or drainage. NECK: Supple, trachea midline. No JVD or lymphadenopathy. CARDIOVASCULAR: Regular rate and rhythm without murmurs, gallops, or rubs. RESPIRATORY: Breath sounds equal bilaterally. No accessory muscle use. GASTROINTESTINAL: Abdomen soft, non-tender, nondistended. MUSCULOSKELETAL: Patient had +2 pitting edema lower extremity. No redness no heat noted. Limited mobility of lower extremity. Patient has mild diffuse tenderness over the lower extremity. BACK: Nontender without obvious deformity. No CVA tenderness. Neurologic exam normal. Data Data Last Documented VS Vital Signs Date Time Temp Pulse Resp B/P (MAP) Pulse Ox O2 Delivery O2 Flow Rate FiO2 01/03/18 21:32 97.6 94 18 122/70 (87) 98 Orders Orders Us Leg Venous Doppler (01/03/18 23:03) MDM Medical Decision Making Medical Screen Exam Complete: Yes Emergency Medical Condition: Yes Interpretation(s) Last Impressions Lower Extremity Ultrasound 01/03/18 [id number] Signed Impressions: Service Date/Time: Wednesday, January 03, 2018 23:17 - CONCLUSION: Extensive lower extremity deep venous thrombosis. Karthikeyan Laura MD Differential Diagnosis Differential diagnosis including muscular strain, acute exacerbation of DVT, acute exacerbation of lower extremity edema, cellulitis, Narrative Course 72-year-old male with increasing pain and swelling of the left leg after physical therapy today. History of DVT. Patient has history of limited mobility of lower extremity. Reviewing venous Doppler left leg today and comparing to previous venous Doppler of the left leg, DVT essentially unchanged. Diagnosis Primary Impression: Strain of left knee and leg Qualified Codes: S86.912A - Strain of unspecified muscle(s) and tendon(s) at lower leg level, left leg, initial encounter Additional Impression: Left leg DVT Qualified Codes: I82.512 - Chronic embolism and thrombosis of left femoral vein Patient Instructions: General Instructions Additional Instructions: Continue with medications as directed. Follow-up with personal physician. Return if worse. Med/Other Pt SpecificInfo: No Change to Meds Disposition: 03 DISCHARGE TO SNF Condition: Stable Bradley Hong MD Jan 03, 2018 23:11
--- NOTE | 2018-01-03 23:45 | RADRPT ---
EXAM DATE/TIME: 01/03/2018 23:17 [facility] COMPARISON: US LEG LEFT VENOUS DOPPLER, June 22, 2016, 21:11. INDICATIONS : Left leg swelling. MEDICAL HISTORY : Hypercholesterolemia. Hypertension. Gastroesophageal reflux disease. Thyroid disease. Floaters. Diffi culty hearing. Neuropathy left foot. Anticoagulant therapy. Dyspnea. Lung nodule. GOUT. Arthritis. Di abetes. SURGICAL HISTORY : Tonsillectomy.Appendectomy. Arthroscopy. Cervical spine stimulator. ENCOUNTER: Subsequent ACUITY: 1 month PAIN SCORE: 6/10 LOCATION: Left leg. TECHNIQUE: Venous ultrasound of the leg was performed from the inguinal ligament to the proximal calf. Real-ranjan e, color Doppler and spectral tracing, compression and augmentation techniques were used. FINDINGS: Extending from the superficial femoral vein through the popliteal vein and into the peroneal vein and posterior tibial vein. These veins are at least partially noncompressible and demonstrate no venous waveform. The greater saphenous vein is patent. CONCLUSION: Extensive lower extremity deep venous thrombosis. Karthikeyan Laura MD on January 03, 2018 at 23:42 Board Certified Radiologist. This report was verified electronically.
[2018-01-04 07:37] VITALS: BP 114/68; PULSE 78; RESP 16; O2SAT 97
== END 2018-01-04 08:41 ==
LOC: NEPD 21:19
DX: S86.912A Strain of unspecified muscle(s) and tendon(s) at lower leg level, left leg, initial encounter (principal); I82.512 Chronic embolism and thrombosis of left femoral vein; I10 Essential (primary) hypertension; E78.00 Pure hypercholesterolemia, unspecified; E11.42 Type 2 diabetes mellitus with diabetic polyneuropathy; E66.01 Morbid (severe) obesity due to excess calories; M19.90 Unspecified osteoarthritis, unspecified site; F32.9 Major depressive disorder, single episode, unspecified; X50.9XXA Other and unspecified overexertion or strenuous movements or postures, initial encounter; Y92.129 Unspecified place in nursing home as the place of occurrence of the external cause; Z79.84 Long term (current) use of oral hypoglycemic drugs; Z79.82 Long term (current) use of aspirin; Z79.899 Other long term (current) drug therapy; Z79.01 Long term (current) use of anticoagulants
CPT/HCPCS: 93971